=== PATIENT | female | born 1960 | race Caucasian/White ===

== ENCOUNTER → 2019-01-11 | Outpatient (CLI) | payer OTHER, SELFPAY ==
--- NOTE | 2019-01-11 09:38 | EKG12_ITS ---
Test Reason : PRE OP Blood Pressure : / mmHG Vent. Rate : 077 BPM Atrial Rate : 077 BPM P-R Int : 146 ms QRS Dur : 068 ms QT Int : 404 ms P-R-T Axes : 050 008 038 degrees QTc Int : 457 ms Normal sinus rhythm Low voltage QRS Borderline ECG Confirmed by MEAGHAN ALVAREZ, DONNA ([id number]), supervising film or videotape editor SHAY BLISS ([id number]) on 01/12/2019 10:43:20 AM Referred By: Jose Clifton Confirmed By:DONNA HARDING MD
[2019-01-11 10:09] LABS: Hemoglobin 14.3 g/dl (12.0-15.0); Mean Corp Hgb Conc 33.3 g/gl (32-36); Mean Corpuscular Hgb 28.7 pg (27.0-32.0); Mean Corpuscular Volume 86.2 fL (81-99); Mean Platelet Vol. 11.4 fl (6.2-12.0); Platelet Count 173 K/mm3 (150-450); RBC Distribution Width CV 13.6 % (11.6-14.6); RBC Distribution Width SD 41.7 fl (35.1-43.9); Red Blood Count 4.99 M/mm3 (4.2-5.4); Scan Indicated on CBC? Y/N NO
[2019-01-11 10:36] LABS: Anion Gap 7 (5-15); BUN 21 mg/dL (7-18); BUN/Creat Ratio 22.6 RATIO (10-20); Calcium,Total 9.1 mg/dL (8.5-10.1); Chloride 105 mmol/L (98-107); Creatinine, Serum 0.93 mg/dL (0.55-1.02); EST Glomerular Filtration Rate 66 mL/min (>60); Est Glom Filt Rate - Afr Amer 79 mL/min (>60); Glucose 151 mg/dL (74-106); Potassium 4.1 mmol/L (3.5-5.1); Sodium Level 139 mmol/L (136-145)
== END | disposition home or self-care (01) ==
PROVIDERS: Family Provider Family Medicine; PCP Family Medicine; Referring Provider Physician Assistant; Visit Provider Physician Assistant
DX: Z01.818 Encounter for other preprocedural examination (principal)
CPT/HCPCS: 36415; 80048; 85027; 93005

== ENCOUNTER → 2019-02-14 | Outpatient (CLI) | payer OTHER, SELFPAY ==
[2019-02-09 06:08] VITALS: BMI 32.0
--- NOTE | 2019-02-14 18:56 | CT_ITS ---
HISTORY: 1PPD X 40YR, LUNG SCREENING EXAMINATION: CT Low Dose CT Chest for Lung Cancer Screening TECHNIQUE: Helically acquired images were obtained of the chest. A radiation dose optimization technique was used for this scan. IV Contrast dosage and agent: None. COMPARISON: None FINDINGS: UPPER ABDOMEN: No acute pathology. HEART AND PERICARDIUM: Heart size is normal. There is no pericardial effusion. VESSELS: Thoracic aorta is not dilated. MEDIASTINUM AND [place]: There is no mediastinal or hilar adenopathy. Esophagus is unremarkable. There is no hiatal hernia. OTHER SOFT TISSUES: Included thyroid gland is unremarkable. There is no axillary, supraclavicular or lower cervical adenopathy. LUNGS AND LARGE AIRWAYS, PLEURA: No evidence of pneumothorax, pleural effusion, pneumonia, or pulmonary edema. No concerning nodules or masses in the lungs. Calcified granuloma right lung apex. Small subpleural bleb adjacent to the right upper lobe anteriorly. Otherwise very little emphysematous changes are noted. BONES: No suspicious lytic or blastic abnormality observed. CT/Low Dose CT Lung Screening IMPRESSION: Negative CT chest without contrast. Lung RADS 1. Continue annual screening. Individualized dose optimization techniques were used for this CT. at 2327 Reported and signed by: Maximilian Hannah MD Electronically Signed: Maximilian Hannah, at 23:26 EDT Tel , Service support ,
== END | disposition home or self-care (01) ==
LOC: CT 18:52
PROVIDERS: Visit Provider Internal Medicine Critical Care Medicine
DX: F17.210 Nicotine dependence, cigarettes, uncomplicated (principal); Z12.2 Encounter for screening for malignant neoplasm of respiratory organs
CPT/HCPCS: G0297

== ENCOUNTER → 2019-03-09 | Outpatient (CLI) | payer OTHER, SELFPAY ==
[2019-02-09 06:08] VITALS: BMI 32.0
--- NOTE | 2019-03-09 13:11 | PFTCOMP_ITS ---
COMPLETE PULMONARY FUNCTION TEST INTERPRETATION Brief HPI: Patient is a 58 year old Black female, currently under the care of Dr. Herrmann, who presents to [facility] for complete pulmonary function tests secondary to diagnosis of nicotine dependence. Respiratory therapist reports good effort and reproducible results. Interpretation: Forced expiration spirometry shows no large airways obstructive ventilatory defect with an FEV1 of 116% predicted. There is no significant bronchodilator response by strict ATS criteria. Spirograms are of good quality and plateau normally. The respiratory flow volume loop shows a normal pattern. Lung volumes by body plethysmography show slightly reduced total lung capacity at 3.69 L, 82% predicted. All other lung volumes are reduced symmetrically. Diffusion capacity by carbon monoxide is normal at 77% predicted. The airway resistance is normal. No previous pulmonary function tests were available for review. Impression: These pulmonary function tests are grossly within normal limits. Total lung volumes are at the lower limit of normal and an early interstitial lung disease cannot be excluded.
== END | disposition home or self-care (01) ==
LOC: PSN 06:40
PROVIDERS: Referring Provider Internal Medicine Critical Care Medicine; Visit Provider Internal Medicine Critical Care Medicine
DX: F17.210 Nicotine dependence, cigarettes, uncomplicated (principal)
CPT/HCPCS: 94060; 94726; 94729

== ENCOUNTER → 2021-01-26 06:56 | Outpatient (CLI) | payer OTHER, SELFPAY ==
[2021-01-25 09:51] VITALS: BMI 32.4
[2021-01-26 07:51] LABS: Absolute Lymphocyte Count 2.71 X10^3/uL (0.83-4.51); Absolute Neutrophil Count 4.2 X10^3/uL (2.0-7.7); Basophil# 0.06 X10^3/uL; Basophil% 0.8 % (0-1); Hematocrit 44.2 % (37-47); Hemoglobin 14.6 g/dL (12.0-15.0); Lymphocyte # 2.71 X10^3/ul (0.83-4.51); Mean Corpuscular Volume 87.7 fL (81-99); Mean Platelet Vol. 10.9 fl (6.2-12.0); Monocyte# 0.59 X10^3/uL; Monocyte% 7.4 % (0-10); NRBC Flagged by Analyzer 0 % (0-5); Neutrophil # 4.18 X10^3/uL (2.7-7.7); Neutrophil % 52.5 % (47-70); Platelet Count 198 K/mm3 (150-450); RBC Distribution Width CV 13.1 % (11.6-14.6); RBC Distribution Width SD 42.1 fl (35.1-43.9); Red Blood Count 5.04 M/mm3 (4.2-5.4)
[2021-01-26 08:51] LABS: Anion Gap 6 (5-15); BUN 19 mg/dL (7-18); BUN/Creat Ratio 20.2 RATIO (10-20); Calcium,Total 8.9 mg/dL (8.5-10.1); Chloride 109 mmol/L (98-107); Creatinine, Serum 0.94 mg/dL (0.55-1.02); EST Glomerular Filtration Rate 64 mL/min (>60); Est Glom Filt Rate - Afr Amer 78 mL/min (>60); Ferritin 80 ng/mL (8-252); Free T3 2.8 pg/mL (2.18-3.98); Glucose 115 mg/dL (74-106); Iron 69 ug/dL (50-170); Iron Binding Capacity,Total 336 ug/dL (250-450); PERCENT IRON SATURATION 20.5 % (15.0-55.0); Potassium 4.3 mmol/L (3.5-5.1); Sodium Level 141 mmol/L (136-145); Thyroid Stim Hormone (TSH) 1.65 uIU/mL (0.358-3.74)
== END ==
PROVIDERS: Referring Provider Nurse Practitioner Acute Care; Visit Provider Nurse Practitioner Acute Care
DX: R53.83 Other fatigue (principal)
CPT/HCPCS: 36415; 80048; 82728; 83540; 83550; 84439; 84443; 84481; 85025

== ENCOUNTER → 2021-02-08 07:17 | Outpatient (CLI) | payer OTHER, SELFPAY ==
[2021-01-25 09:51] VITALS: BMI 32.4
--- NOTE | 2021-02-08 07:18 | CT_ITS ---
STUDY: CT CHEST WITHOUT CONTRAST- LOW DOSE SCREENING PROTOCOL REASON FOR EXAM: Female, 60 years old. Current smoker. 40 pack per year history. No current symptoms of lung cancer or pulmonary infection. Shared decision-making with referring PCP documented in patient''s record. RADIATION DOSAGE (If Supplied By Facility): CTDIvol = ( 3.02 ) mGy, DLP = ( 96.28 ) mGycm TECHNIQUE: Low dose screening CT examination performed from the base of the neck to the upper abdomen. Sagittal and coronal reformatted images performed. Sagittal and coronal MIP images provided. The measurements provided are average, rounded measurements per ACR guidelines. COMPARISON: 02/14/2019 FINDINGS: Subpleural bleb or pneumatocele in the anterior right upper lobe. No noncalcified nodule or mass. There is no demonstrated pleural abnormality. Normal heart and pericardium. Normal mediastinum. Normal hilar regions. Normal unenhanced pulmonary arteries. Normal aorta arch and descending thoracic aorta. Normal osseous structures. There is no demonstrated abnormality of the visualized upper abdomen. CT/Low Dose CT Lung Screening IMPRESSION: 1. No significant indeterminate incidental findings requiring additional imaging. 2. Incidental findings include right upper lobe subpleural bleb or pneumatocele.. ASSESSMENT CATEGORY: LungRADS 1 - Negative. Continue annual screening with LDCT in 12 months, per established ACR guidelines. Electronically Signed: Sean Ruiz MD at 12:17 EDT Tel , Service support ,
== END ==
PROVIDERS: Referring Provider Nurse Practitioner Acute Care; Visit Provider Nurse Practitioner Acute Care
DX: F17.210 Nicotine dependence, cigarettes, uncomplicated (principal); Z12.2 Encounter for screening for malignant neoplasm of respiratory organs
CPT/HCPCS: 71271

== ENCOUNTER → 2021-04-10 11:59 | Outpatient (CLI) | payer OTHER, SELFPAY ==
[2021-04-10 15:17] LABS: Hemoglobin A1c 6.4 % (3.8-5.6)
[2021-04-10 15:29] LABS: Cholesterol 189 mg/dL (200); High Density Lipoprotein 34 mg/dL; Triglycerides 668 mg/dL
== END ==
PROVIDERS: PCP Internal Medicine; Referring Provider Internal Medicine; Visit Provider Internal Medicine
DX: I10 Essential (primary) hypertension (principal); R73.9 Hyperglycemia, unspecified
CPT/HCPCS: 36415; 80061; 83036

== ENCOUNTER → 2021-05-22 08:23 | Outpatient (CLI) | payer OTHER, SELFPAY ==
--- NOTE | 2021-05-22 08:25 | EKG12_ITS ---
Test Reason : ROUTINE Blood Pressure : / mmHG Vent. Rate : 067 BPM Atrial Rate : 067 BPM P-R Int : 156 ms QRS Dur : 076 ms QT Int : 406 ms P-R-T Axes : 041 029 063 degrees QTc Int : 429 ms Normal sinus rhythm Low voltage QRS Septal infarct , age undetermined Abnormal ECG Confirmed by MEAGHAN ALVAREZ, DONNA ([id number]), scientific publications editor SHAY BLISS ([id number]) on 05/23/2021 10:11:45 AM Referred By: Rolan Domingo Confirmed By:DONNA HARDING MD
== END ==
PROVIDERS: PCP Internal Medicine; Referring Provider Internal Medicine; Visit Provider Internal Medicine
DX: I10 Essential (primary) hypertension (principal)
CPT/HCPCS: 93005

== ENCOUNTER → 2021-06-17 06:35 | Outpatient (CLI) | payer OTHER, SELFPAY ==
--- NOTE | 2021-06-17 09:23 | STRESSREP_ITS ---
Stress Test Report Date: 06-17-2021 Procedure: Pharmacologic stress nuclear imaging study Indications: Abnormal ECG Consent: Per the patient Procedure: The patient underwent pharmacologic (Regadenoson 0.4mg ) evaluation with a peak heart rate of 99 beats per minute (62%predicted maximal heart rate) and a peak blood pressure of 138/76 mmHg. The baseline ECG demonstrated sinus rhythm; nonspecific T wave abnormality. The peak pharmacologic ECG demonstrated no obvious ECG changes. There was a rare premature ectopic complex in recovery. There was no complaint of chest discomfort during pharmacologic infusion or recovery. The examination was discontinued secondary to completion of protocol. Impression: 1. Pharmacologic (Regadenoson) evaluation 2. Peak pharmacologic ECG with no obvious ECG changes. 3. There was a rare premature ectopic complex in recovery. 4. Nuclear images pending Myocardial perfusion imaging study: Technique: The patient was injected with 11.2 millicuries of technetium 99m Cardiolite and subsequently rest SPECT Cardiolite nuclear imaging was obtained in the horizontal long, vertical long, and short axis views. The patient underwent pharmacologic (Regadenoson) evaluation with a peak heart rate of 99 beats per minute (62% percent predicted maximal heart rate) and a peak blood pressure of 138/76 mmHg. The patient was injected with 34.5 millicuries of technetium 99m Cardiolite and subsequently stress SPECT Cardiolite nuclear imaging was obtained in the horizontal long, vertical long, and short axis views. A gated Cardiolite study at peak stress was obtained. Interpretation: Rest and stress SPECT Cardiolite nuclear imaging status post realignment, normalization, and attenuation correction demonstrate relative uniform tracer uptake and myocardial perfusion appearing within normal limits. There is end systolic thickening and brightening. The gated Cardiolite study demonstrates myocardial thickening and inward wall motion. The reported LVEF is 76%. Impression: 1. Rest and stress SPECT Cardiolite nuclear imaging demonstrate relative uniform tracer uptake and myocardial perfusion appearing within normal limits. 2. The gated Cardiolite study reports an LVEF of 76%. This note was generated with [employer] software. It may contain incorrect words, spelling, and punctuation that were not noted in checking the note before signing.
== END ==
PROVIDERS: PCP Internal Medicine; Referring Provider Internal Medicine; Visit Provider Internal Medicine
DX: R94.31 Abnormal electrocardiogram [ECG] [EKG] (principal); I10 Essential (primary) hypertension
CPT/HCPCS: 78452; 93017; A9500; A4216; J2785

== ENCOUNTER → 2021-07-06 07:39 | Outpatient (CLI) | payer OTHER, SELFPAY ==
[2021-07-06 08:39] LABS: Anion Gap 5 (5-15); BUN 14 mg/dL (7-18); BUN/Creat Ratio 15.4 RATIO (10-20); Chloride 108 mmol/L (98-107); Creatinine, Serum 0.91 mg/dL (0.55-1.02); EST Glomerular Filtration Rate 67 mL/min (>60); Est Glom Filt Rate - Afr Amer 81 mL/min (>60); Glucose 145 mg/dL (74-106); Sodium Level 139 mmol/L (136-145)
[2021-07-06 08:55] LABS: Hemoglobin A1c 6.8 % (3.8-5.6)
== END ==
PROVIDERS: PCP Internal Medicine; Visit Provider Internal Medicine
DX: I10 Essential (primary) hypertension (principal); R73.03 Prediabetes
CPT/HCPCS: 36415; 80048; 83036

== ENCOUNTER 2021-11-20 14:11 | Outpatient (CLI) | payer OTHER, SELFPAY ==
[2021-11-20 14:55] LABS: Absolute Lymphocyte Count 2.44 X10^3/uL (0.83-4.51); Absolute Neutrophil Count 4.9 X10^3/uL (2.0-7.7); Basophil# 0.04 X10^3/uL; Basophil% 0.5 % (0-1); Eosinophil# 0.27 X10^3/uL; Eosinophils% 3.2 % (0-5); Hematocrit 37.8 % (37-47); Hemoglobin 12.6 g/dL (12.0-15.0); Lymphocyte # 2.44 X10^3/ul (0.83-4.51); Lymphocyte % 29.2 % (19-41); Mean Corp Hgb Conc 33.3 g/dL (32-36); Mean Corpuscular Hgb 29.2 pg (27.0-32.0); Mean Corpuscular Volume 87.5 fL (81-99); Monocyte# 0.65 X10^3/uL; Monocyte% 7.8 % (0-10); NRBC Flagged by Analyzer 0 % (0-5); Neutrophil # 4.94 X10^3/uL (2.7-7.7); Neutrophil % 58.9 % (47-70); Platelet Count 177 K/mm3 (150-450); RBC Distribution Width CV 12.7 % (11.6-14.6); RBC Distribution Width SD 40.5 fl (35.1-43.9); Red Blood Count 4.32 M/mm3 (4.2-5.4); White Blood Count 8.4 K/mm3 (4.4-11.0)
[2021-11-20 15:04] LABS: D-Dimer Quantitative (DVT/PE) 0.46 FEU/ug/m (0.27-0.49)
[2021-11-20 15:13] LABS: Anion Gap 5 (5-15); BUN 18 mg/dL (7-18); BUN/Creat Ratio 19.7 RATIO (10-20); Calcium,Total 8.8 mg/dL (8.5-10.1); Chloride 109 mmol/L (98-107); Creatinine, Serum 0.91 mg/dL (0.55-1.02); EST Glomerular Filtration Rate 66 mL/min (>60); Est Glom Filt Rate - Afr Amer 80 mL/min (>60); Glucose 164 mg/dL (74-106); Potassium 3.6 mmol/L (3.5-5.1); Sodium Level 141 mmol/L (136-145); T4 Free Direct 0.87 ng/dL (0.76-1.46)
== END 2021-11-20 23:59 | disposition home or self-care (01) ==
LOC: BIMLAB 14:12
PROVIDERS: PCP Internal Medicine; Referring Provider Physician Assistant; Visit Provider Physician Assistant
DX: I10 Essential (primary) hypertension (principal); R73.03 Prediabetes; R60.9 Edema, unspecified; F17.210 Nicotine dependence, cigarettes, uncomplicated; Z13.29 Encounter for screening for other suspected endocrine disorder
CPT/HCPCS: 80048; 84439; 85025; 85379

== ENCOUNTER → 2022-01-03 | Outpatient (CLI) | payer OTHER, SELFPAY ==
--- NOTE | 2022-01-03 07:42 | ECHOD_ITS ---
Reason For Study: HTN Procedure This was a 2D Doppler, Color Flow transthoracic echocardiogram. The study was technically difficult. Exam performed in department. Left Ventricle Apical false tendon noted. Based upon the 2D echocardiographic images obtained there appears to be grossly normal left ventricular size, wall motion, and systolic function. The estimated ejection fraction is 70 %. Diastolic function is indeterminate. Right Ventricle Normal RV size. Normal systolic function. Atria Normal left atrium. Normal right atrium. No doppler evidence for ASD. Mitral Valve There is no mitral annular calcification. Normal mitral valve. Trivial mitral valve insufficiency. Tricuspid Valve Normal tricuspid valve. Trivial tricuspid valve insufficiency. Unable to estimate RV systolic pressure/pulmonary artery pressure due to technically difficult study. Aortic Valve The aortic valve is not well visualized. Pulmonic Valve The pulmonic valve is not well visualized. Great Vessels The aortic root is not well visualized. Pericardium/Pleural No pericardial effusion. MMode/2D Measurements & Calculations LVIDd: 4.1 cm IVSd: 1.2 cm Ao root diam: 2.8 cm LVIDs: 1.9 cm LVPWd: 1.4 cm FS: 52.7 % LAV(MOD-bp): 30.9 ml LVAd ap4: 27.9 cm2 SV(MOD-sp4): 57.7 ml LAV(MOD-bp) Indexed: 17.1 ml/m2 LVLd ap4: 7.4 cm LAV(MOD-sp2): 24.3 ml EDV(MOD-sp4): 85.4 ml LAV(MOD-sp4): 35.3 ml EDV(sp4-el): 89.0 ml LVAs ap4: 13.1 cm2 LVLs ap4: 5.7 cm ESV(MOD-sp4): 27.7 ml ESV(sp4-el): 25.5 ml EF(MOD-sp4): 67.6 % EF(sp4-el): 71.3 % SV(sp4-el): 63.5 ml LA A4 area: 14.1 cm2 LA dimension(2D): 3.8 cm RA A4 area: 10.9 cm2 Doppler Measurements & Calculations MV E max adonay: 90.6 cm/sec Lat Peak E' Adonay: 6.3 cm/sec Med Peak E' Adonay: 7.5 cm/sec MV A max adonay: 108.4 cm/sec E/E' lat: 14.5 E/E' med: 12.1 MV E/A: 0.84 Ao V2 max: 172.4 cm/sec LV V1 max: 135.9 cm/sec PA V2 max: 98.4 cm/sec Ao max P.9 mmHg LV V1 max P.4 mmHg ECHO/Echo Complete Interpretation Summary The study was technically difficult. Based upon the 2D echocardiographic images obtained there appears to be grossly normal left ventricular size, wall motion, and systolic function The estimated ejection fraction is 70 %. Apical false tendon noted. Trivial mitral valve insufficiency. Trivial tricuspid valve insufficiency. Unable to estimate RV systolic pressure/pulmonary artery pressure due to techni rodrigo difficult study. Diastolic function is indeterminate. Ordering Physician: Holger Recio Referring Physician: Holger Recio Performed By: Luz Rubio RCS
--- NOTE | 2022-01-03 07:42 | VDLE_ITS ---
Reason For Study: Swelling RIGHT LEFT GSV is normal. GSV is normal. CFV is compressible, spontaneous, phasic, CFV is compressible, spontaneous, phasic, competent and demonstrates normal competent, and demonstrates normal augmentation. augmentation. FV is compressible, spontaneous, phasic, FV is compressible, spontaneous, phasic, competent and demonstrates normal competent and demonstrates normal augmentation. augmentation. POP V is compressible, spontaneous, phasic, POP V is compressible, spontaneous, phasic, competent and demonstrates normal competent and demonstrates normal augmentation. augmentation. T/P Trunk is compressible. T/P Trunk is compressible. PTV is compressible. PTV is compressible. RT PerV is compressible. LT PerV is compressible. Heterogenous structure noted in the right calf muscle, nonvascularized, measuring 2.04 x 2.31 cm. Procedure This is a venous duplex using B-mode, color flow and spectral Doppler. Exam performed in department. A preliminary report was called and/or faxed to [facility]. VL/Venous Duplex US - Abraham Extrem Interpretation Summary No evidence for acute deep venous thrombosis bilateral lower extremities with p atent and compressible bilateral great saphenous veins. Heterogenous nonvascular right ca lf muscle 2.04 x 2.31 cm structure. Clinical correlation would be appropriate. Ordering Physician: Holger Recio Referring Physician: Rolan Domingo Performed By: Ashely Anderson RVT
[2022-01-03 08:05] LABS: Anion Gap 8 (5-15); BUN 23 mg/dL (7-18); BUN/Creat Ratio 21.9 RATIO (10-20); Calcium,Total 8.8 mg/dL (8.5-10.1); Chloride 105 mmol/L (98-107); Creatinine, Serum 1.05 mg/dL (0.55-1.02); EST Glomerular Filtration Rate 56 mL/min (>60); Est Glom Filt Rate - Afr Amer 68 mL/min (>60); Glucose 216 mg/dL (74-106); Potassium 3.8 mmol/L (3.5-5.1); Sodium Level 140 mmol/L (136-145)
== END | disposition home or self-care (01) ==
LOC: CVS 07:13
PROVIDERS: PCP Internal Medicine; Referring Provider Internal Medicine Cardiovascular Disease; Visit Provider Internal Medicine Cardiovascular Disease
DX: I10 Essential (primary) hypertension (principal); R94.31 Abnormal electrocardiogram [ECG] [EKG]; R60.0 Localized edema
CPT/HCPCS: 36415; 80048; 93306; 93970

== ENCOUNTER → 2022-01-25 | Outpatient (CLI) | payer OTHER, SELFPAY ==
[2022-01-25 08:36] LABS: Anion Gap 5 (5-15); BUN 17 mg/dL (7-18); BUN/Creat Ratio 15.9 RATIO (10-20); Calcium,Total 8.7 mg/dL (8.5-10.1); Chloride 106 mmol/L (98-107); Creatinine, Serum 1.07 mg/dL (0.55-1.02); EST Glomerular Filtration Rate 55 mL/min (>60); Est Glom Filt Rate - Afr Amer 67 mL/min (>60); Glucose 256 mg/dL (74-106); Potassium 3.8 mmol/L (3.5-5.1); Sodium Level 138 mmol/L (136-145)
== END | disposition home or self-care (01) ==
LOC: LAB 07:41
PROVIDERS: PCP Internal Medicine; Referring Provider Internal Medicine Cardiovascular Disease; Visit Provider Internal Medicine Cardiovascular Disease
DX: I10 Essential (primary) hypertension (principal); R94.31 Abnormal electrocardiogram [ECG] [EKG]
CPT/HCPCS: 36415; 80048

== ENCOUNTER → 2022-02-10 | Outpatient (CLI) | payer OTHER, SELFPAY ==
--- NOTE | 2022-02-10 15:32 | CT_ITS ---
EXAM: CT CHEST WITHOUT INTRAVENOUS CONTRAST CLINICAL INDICATION: smoker and gt; 40 pack years TECHNIQUE: Helically acquired images were obtained of the chest without intravenous contrast. This CT exam was performed using one or more of the following dose reduction techniques: automated exposure control, adjustment of the mA and/or kV according to patient size, and/or use of iterative reconstruction technique. This report was created using [employer] report generation technology. COMPARISON: None. FINDINGS: LUNGS AND PLEURAL SPACES: Stable small right upper lobe subpleural bleb versus pneumatocele. No pulmonary nodule or mass. No pneumothorax. No airspace disease or pleural thickening. No effusion. HEART: Unremarkable. Heart size is normal. No pericardial effusion. No significant coronary artery calcifications. MEDIASTINUM: Unremarkable. No mediastinal or hilar adenopathy. Esophagus is unremarkable. No hiatal hernia. THYROID: Unremarkable. No thyroid lesions. BONES/JOINTS: Degenerative changes of the spine. No suspicious lytic or blastic abnormality. VASCULATURE: Unremarkable. Thoracic aorta is non-dilated. CT/Low Dose CT Lung Screening IMPRESSION: 1. No pulmonary nodules identified. 2. Stable small right upper lobe subpleural bleb versus pneumatocele. Assessment category: ACR Lung CT Screening Reporting T Data System (Lung-RADS) score: 1 - Recommend continued annual screening with low-dose CT (LDCT) in 12 months. Electronically Signed: Spike Dominguez MD at 7:39 EDT ,
== END | disposition home or self-care (01) ==
PROVIDERS: PCP Internal Medicine; Visit Provider Nurse Practitioner Acute Care
DX: F17.210 Nicotine dependence, cigarettes, uncomplicated (principal)
CPT/HCPCS: 71271

== ENCOUNTER → 2022-07-26 | Outpatient (CLI) | payer OTHER, SELFPAY ==
[2022-07-26 10:04] LABS: AST(SGOT) 18 U/L (15-37); Alanine Aminotransfer ALT/SGPT 33 U/L (13-56); Albumin, Serum 3.9 g/dL (3.2-5.0); Alkaline Phosphatase 94 U/L (45-117); Bilirubin, Direct 0.11 mg/dL (0.00-0.30); Cholesterol 232 mg/dL (200); Globulin 3.4 g/dL (2.2-4.2); High Density Lipoprotein 35 mg/dL; Protein, Total 7.3 g/dL (6.4-8.2); Triglycerides 748 mg/dL
== END | disposition home or self-care (01) ==
LOC: LAB 08:33
PROVIDERS: PCP Internal Medicine; Referring Provider Nurse Practitioner Gerontology; Visit Provider Nurse Practitioner Gerontology
DX: R73.03 Prediabetes (principal)
CPT/HCPCS: 36415; 80061; 80076

== ENCOUNTER → 2023-03-28 | Outpatient (CLI) | payer OTHER, SELFPAY ==
[2023-03-28 09:26] LABS: AST(SGOT) 14 U/L (15-37); Alanine Aminotransfer ALT/SGPT 27 U/L (13-56); Albumin, Serum 3.7 g/dL (3.2-5.0); Alkaline Phosphatase 94 U/L (45-117); Bilirubin, Direct 0.12 mg/dL (0.00-0.30); Cholesterol 163 mg/dL (200); Globulin 3.5 g/dL (2.2-4.2); High Density Lipoprotein 38 mg/dL; Protein, Total 7.2 g/dL (6.4-8.2); Triglycerides 448 mg/dL
== END | disposition home or self-care (01) ==
LOC: LAB 07:05
PROVIDERS: PCP Internal Medicine; Referring Provider Nurse Practitioner Gerontology; Visit Provider Nurse Practitioner Gerontology
DX: E78.1 Pure hyperglyceridemia (principal); E78.5 Hyperlipidemia, unspecified
CPT/HCPCS: 36415; 80061; 80076

== ENCOUNTER → 2023-04-01 | Outpatient (CLI) | payer OTHER, SELFPAY ==
--- NOTE | 2023-04-01 06:50 | CT_ITS ---
STUDY: LOW DOSE CT LUNG CANCER SCREENING REASON FOR EXAM: Female, 62 years old. smoker. 1PPD 45 YEARS RADIATION DOSAGE (If Supplied By Facility): CTDIvol = ( 3.02 ) mGy, DLP = ( 97.04 ) mGycm TECHNIQUE: No contrast was administered. Low dose technique was utilized (average mAS-38 and kVp 120). 1.25 mm axial source images with a slice interval of 1.25-mm were reconstructed in lung windows. 2.5 mm axial source images with a slice interval of 2.5-mm were reconstructed in lung windows. 5.0 mm axial source images with a slice interval of 5.0-mm were reconstructed in soft tissue windows. COMPARISON: Comparison is made with prior study February 10, 2022. NODULES: Stable tiny calcified granuloma in the anterior lateral aspect of the right lung apex as seen on axial image #44. Emphysema: Stable bleb measuring 2.2 cm is seen in the anterior aspect of the right upper lobe as seen on axial image #59 and coronal image #100. Stable minimal scarring in the posterior medial segment of the right lower lobe. Endobronchial lesion: None Aorta: Minimal atherosclerotic plaque of the aortic arch. CORONARY ARTERIES: Coronary artery calcification is seen. Heart: Unremarkable. Pulmonary artery: Unremarkable. Mediastinal nodes: Small mediastinal lymph nodes. Other chest and abdominal findings: CT/Low Dose CT Lung Screening IMPRESSION: Lung-RADS category 2 - Continue annual screening with LDCT in 12 months. IMPORTANT NOTES FOR USE: ACR Lung-RADS Version 1.1 Assessment Categories Release Date: 2018 Category: Coded 0-4 bases on nodule(s) with highest degree of suspicion. Negative screen is defined as categories 1 and 2; a positive screen is defined as categories 3 and 4. Category 3 and 4A nodules that are unchanged on interval CT should be coded as category 2, and individuals returned to screening in 12 months. Category 4X: Category 3 or 4 nodules with additional imaging findings that increase the suspicion of lung cancer, such as spiculation, GGN that doubles in size in 1 year, enlarged lymph notes, etc. Category Modifiers: S (significant finding unrelated to lung cancer) Electronically Signed: Luis Serrano MD at 10:59 EDT ,
== END | disposition home or self-care (01) ==
LOC: CT 06:48
PROVIDERS: PCP Internal Medicine; Referring Provider Nurse Practitioner Acute Care; Visit Provider Nurse Practitioner Acute Care
DX: F17.210 Nicotine dependence, cigarettes, uncomplicated (principal)
CPT/HCPCS: 71271

== ENCOUNTER → 2023-07-25 | Outpatient (CLI) | payer OTHER, SELFPAY ==
[2023-07-25 08:49] LABS: AST(SGOT) 16 U/L (15-37); Alanine Aminotransfer ALT/SGPT 30 U/L (13-56); Albumin, Serum 3.9 g/dL (3.2-5.0); Alkaline Phosphatase 108 U/L (45-117); Bilirubin, Direct 0.11 mg/dL (0.00-0.30); Cholesterol 195 mg/dL (200); Globulin 3.4 g/dL (2.2-4.2); High Density Lipoprotein 39 mg/dL; Protein, Total 7.3 g/dL (6.4-8.2); Triglycerides 512 mg/dL
== END | disposition home or self-care (01) ==
LOC: LAB 07:32
PROVIDERS: PCP Internal Medicine; Referring Provider Nurse Practitioner Gerontology; Visit Provider Nurse Practitioner Gerontology
DX: E78.5 Hyperlipidemia, unspecified (principal); E78.1 Pure hyperglyceridemia
CPT/HCPCS: 36415; 80061; 80076

== ENCOUNTER → 2024-04-02 | Outpatient (CLI) | payer OTHER, SELFPAY ==
--- NOTE | 2024-04-02 08:43 | CT_ITS ---
STUDY: LOW DOSE CT LUNG CANCER SCREENING REASON FOR EXAM: Female, 63 years old. One pack per day smoker x46 years RADIATION DOSAGE (If Supplied By Facility): CTDIvol = ( 3.02 ) mGy, DLP = ( 100.81 ) mGycm TECHNIQUE: No contrast was administered. Low dose technique was utilized (average mAS-38 and kVp 120). 1.25 mm axial source images with a slice interval of 1.25-mm were reconstructed in lung windows. 2.5 mm axial source images with a slice interval of 2.5-mm were reconstructed in lung windows. 5.0 mm axial source images with a slice interval of 5.0-mm were reconstructed in soft tissue windows. COMPARISON: 04/01/2023 FINDINGS: Lung windows show a stable calcified granuloma in the right upper lobe on axial image 42. There is underlying emphysema with stable bleb also noted in the right upper lobe. Interstitial changes noted in both lung mejía without evidence of a superimposed infiltrate, effusion, or suspicious noncalcified mass or nodule. Overall, the lung mejía are essentially unchanged from the previous study. Limited soft tissue windows show a normal-appearing thyroid gland. No suspicious adenopathy. There are calcified coronary vessels. Thoracic aorta tapers normally. Limited cuts through the upper abdomen do not show a suspicious abnormality. Bony structures show degenerative change CT/Low Dose CT Lung Screening IMPRESSION: Lung-RADS category 2 - Continue annual screening with LDCT in 12 months. IMPORTANT NOTES FOR USE: ACR Lung-RADS Version 1.1 Assessment Categories Release Date: 2018 Category: Coded 0-4 bases on nodule(s) with highest degree of suspicion. Negative screen is defined as categories 1 and 2; a positive screen is defined as categories 3 and 4. Category 3 and 4A nodules that are unchanged on interval CT should be coded as category 2, and individuals returned to screening in 12 months. Category 4X: Category 3 or 4 nodules with additional imaging findings that increase the suspicion of lung cancer, such as spiculation, GGN that doubles in size in 1 year, enlarged lymph notes, etc. Category Modifiers: S (significant finding unrelated to lung cancer) Electronically Signed: Michael Murillo MD at 8:52 EDT ,
== END | disposition home or self-care (01) ==
LOC: CT 08:42
PROVIDERS: PCP Internal Medicine; Referring Provider Nurse Practitioner Acute Care; Visit Provider Nurse Practitioner Acute Care
DX: F17.210 Nicotine dependence, cigarettes, uncomplicated (principal)
CPT/HCPCS: 71271

== ENCOUNTER → 2024-07-27 | Outpatient (CLI) | payer OTHER, SELFPAY ==
[2024-07-27 11:47] LABS: Hematocrit 45.6 % (37-47); Hemoglobin 15.6 g/dL (12.0-15.0); Mean Corp Hgb Conc 34.2 g/dL (32-36); Mean Corpuscular Hgb 29.3 pg (27.0-32.0); Mean Corpuscular Volume 85.7 fL (81-99); Mean Platelet Vol. 11.4 fl (6.2-12.0); Platelet Count 189 K/mm3 (150-450); RBC Distribution Width CV 12.3 % (11.6-14.6); RBC Distribution Width SD 38.5 fl (35.1-43.9); Red Blood Count 5.32 M/mm3 (4.2-5.4)
[2024-07-27 12:13] LABS: ALB/GLOB Ratio 1.2 RATIO (0.9-2.4); AST(SGOT) 17 U/L (15-37); Alanine Aminotransfer ALT/SGPT 30 U/L (13-56); Alkaline Phosphatase 117 U/L (45-117); Anion Gap 6 (5-15); BUN 18 mg/dL (7-18); BUN/Creat Ratio 17.5 RATIO (10-20); Calcium,Total 9.4 mg/dL (8.5-10.1); Chloride 98 mmol/L (98-107); Cholesterol 211 mg/dL (200); Creatinine, Serum 1.03 mg/dL (0.55-1.02); EST Glomerular Filtration Rate 57 mL/min (>60); Est Glom Filt Rate - Afr Amer 69 mL/min (>60); Globulin 3.3 g/dL (2.2-4.2); Glucose 368 mg/dL (74-106); High Density Lipoprotein 42 mg/dL; Potassium 4.1 mmol/L (3.5-5.1); Protein, Total 7.3 g/dL (6.4-8.2); Sodium Level 133 mmol/L (136-145); Triglycerides 616 mg/dL
[2024-07-27 12:30] LABS: Hemoglobin A1c 10.4 % (3.8-5.6)
== END | disposition home or self-care (01) ==
LOC: LAB 11:17
PROVIDERS: PCP Internal Medicine; Referring Provider Internal Medicine Cardiovascular Disease; Visit Provider Internal Medicine Cardiovascular Disease
DX: I10 Essential (primary) hypertension (principal); E78.2 Mixed hyperlipidemia
CPT/HCPCS: 36415; 80053; 80061; 83036; 85027

== ENCOUNTER → 2024-09-03 | Outpatient (CLI) | payer OTHER, SELFPAY ==
[2024-09-03 08:12] LABS: Anion Gap 6 (5-15); BUN 20 mg/dL (7-18); BUN/Creat Ratio 18.2 RATIO (10-20); Calcium,Total 9.4 mg/dL (8.5-10.1); Chloride 103 mmol/L (98-107); EST Glomerular Filtration Rate 53 mL/min (>60); Est Glom Filt Rate - Afr Amer 64 mL/min (>60); Glucose 292 mg/dL (74-106); Potassium 3.5 mmol/L (3.5-5.1); Sodium Level 139 mmol/L (136-145)
[2024-09-03 08:19] LABS: Hemoglobin A1c 9.9 % (3.8-5.6)
== END | disposition home or self-care (01) ==
LOC: LAB 06:58
PROVIDERS: PCP Internal Medicine; Referring Provider Physician Assistant Medical; Visit Provider Physician Assistant Medical
DX: E11.9 Type 2 diabetes mellitus without complications (principal)
CPT/HCPCS: 36415; 80048; 83036

== ENCOUNTER → 2025-03-22 | Outpatient (CLI) | payer MEDICARE, OTHER, SELFPAY ==
--- NOTE | 2025-03-22 07:02 | BI_ITS ---
EXAM: SCRN MAMM (CAD)W/JIMENA BILAT DATE: 03/22/2025 CLINICAL HISTORY: F, Age 64 y/o , SCREENING TECHNIQUE: SCRN MAMM (CAD)W/JIMENA BILAT COMPARISON: No priors available FINDINGS: TISSUE DENSITY: The breasts are almost entirely fatty. Bilateral Breast Mammographic Findings: No significant masses, calcifications or other abnormalities are identified. BI/SCRN MAMM (CAD)W/JIMENA BILAT IMPRESSION: There is no mammographic evidence of malignancy. OVERALL FINAL ASSESSMENT BI-RADS 1: NEGATIVE. RECOMMENDATION: Routine annual follow-up in 1 Year A letter with findings and recommendations will be mailed to the patient. Reading Location: [id number]
--- NOTE | 2025-03-22 07:02 | BI_ITS ---
EXAM: SCRN MAMM (CAD)W/JIMENA BILAT DATE: 03/22/2025 CLINICAL HISTORY: F, Age 64 y/o , SCREENING TECHNIQUE: SCRN MAMM (CAD)W/JIMENA BILAT COMPARISON: No priors available FINDINGS: TISSUE DENSITY: The breasts are almost entirely fatty. Bilateral Breast Mammographic Findings: No significant masses, calcifications or other abnormalities are identified. BI/SCRN MAMM (CAD)W/JIMENA BILAT IMPRESSION: There is no mammographic evidence of malignancy. OVERALL FINAL ASSESSMENT BI-RADS 1: NEGATIVE. RECOMMENDATION: Routine annual follow-up in 1 Year A letter with findings and recommendations will be mailed to the patient. Reading Location: [id number]
--- NOTE | 2025-03-22 07:05 | BD_ITS ---
PROCEDURE: DEXA BONE DENSITY STUDY 03/22/2025 REASON FOR EXAM: F, age 64 y/o . Postmenopausal. TECHNIQUE: DEXA BONE DENSITY STUDY COMPARISON: None FINDINGS: BMD and T-SCORES Lumbar spine: 1.324 g/cm2, T-score 2.5 Levels: L1 through L4 Left femoral neck: 0.753 g/cm2, T-score -0.9 Femoral neck comparison data not recommended for monitoring change. Left total hip: 1.007 g/cm2, T-score 0.5 Right femoral neck: 0.694 g/cm2, T-score -1.4 Femoral neck comparison data not recommended for monitoring change. Right total hip: 0.957 g/cm2, T-score 0.1 The World Health Organization has defined the following categories based on bone density: Normal bone density: T-score equal to or greater than -1.0 Osteopenia: T-score between -1.0 and -2.5 Osteoporosis: T-score equal to or less than -2.5 The patient does meet the pharmacological treatment recommendations for prevention of osteoporosis. BD/Dexa Bone Density Study IMPRESSION: OSTEOPENIA. Recommend follow-up as clinically warranted. Reading Location: [facility]
--- NOTE | 2025-03-22 07:05 | BD_ITS ---
PROCEDURE: DEXA BONE DENSITY STUDY 03/22/2025 REASON FOR EXAM: F, age 64 y/o . Postmenopausal. TECHNIQUE: DEXA BONE DENSITY STUDY COMPARISON: None FINDINGS: BMD and T-SCORES Lumbar spine: 1.324 g/cm2, T-score 2.5 Levels: L1 through L4 Left femoral neck: 0.753 g/cm2, T-score -0.9 Femoral neck comparison data not recommended for monitoring change. Left total hip: 1.007 g/cm2, T-score 0.5 Right femoral neck: 0.694 g/cm2, T-score -1.4 Femoral neck comparison data not recommended for monitoring change. Right total hip: 0.957 g/cm2, T-score 0.1 The World Health Organization has defined the following categories based on bone density: Normal bone density: T-score equal to or greater than -1.0 Osteopenia: T-score between -1.0 and -2.5 Osteoporosis: T-score equal to or less than -2.5 The patient does meet the pharmacological treatment recommendations for prevention of osteoporosis. BD/Dexa Bone Density Study IMPRESSION: OSTEOPENIA. Recommend follow-up as clinically warranted. Reading Location: [facility]
--- OUTSIDE RECORDS SUMMARY | 2025-03-22 07:18 | XMS RPT_ITS | CCD ---
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 Rolan Domingo Primary Care Provider [phone] Dr. Rolan Domingo Referring Provider [phone] GINGER Horn Attending Provider Unavailab Dr. Holger Pritchard Attending Provider [phone] Dr. Stephon Chinchilla Attending Provider Dr. Holger Recio Referring Provider [phone] Billy HEARD, JORGE LUIS Salcido Attending Provider Dr. Rolan Domingo Primary Care Provider [phone] Dr. Rolan Domingo Referring Provider [phone] Billy HEARD, JORGE LUIS Salcido Attending Provider Unavailable Primary Care Provider UnavailDr. Rolan Dc Primary Care Provider [phone] Dr. oRlan Domingo Referring Provider [phone] Billy HEARD, JORGE LUIS Salcido Attending Provider Sharita HEARD, NODULIZER-Laine Chery Attending Provider ROLAN DOMINGO Primary Care Unavailable GENEVA MELENDEZ Referring Unavailable ROLAN DOMINGO Primary Care Unavailable Rolan Domingo MD Primary Care Provider [phone] Dr. Rolan Domingo Primary Care Provider [phone] Dr. Rolan Domingo Referring Provider [phone] Kori NODULIZER, NODULIZERIvett Ruffin Attending Provider [phone] Keena Francisco Attending Unavail able Keena Francisco Referring Unavail able Oleghe, Efewongbe Primary Care Unavailable Oleghe, Efewongbe Primary Care Unavailable Raedenis HICKS, Marybeth Attending Unavailable Rae AIDENC, Marybeth Referring Unavailable Sharita NODULIZER, Miri Referring Unavailable Oleghe, Efewongbe Primary Care Unavailable Sharita NODULIZER, Miri Attending Unavailable Oleghe, Efewongbe Primary Care Unavailable Rae VSC, Marybeth Attending Unavailable Rae FABIOLA, Marybeth Referring Unavailable Oleghe, Efewongbe Primary Care Unavailable Oleghe, Efewongbe Referring Unavailable Sylvester Domingo Attending Unavailable Oleghe, Efewongbe Primary Care Unavailable Oleghe, Efewongbe Referring Unavailable Sharita NODULIZER, Miri Attending Unavailable Sylvester Domingo Attending Unavailable Sylvester Domingo Referring Unavailable Oleghe, Efewongbe Primary Care Unavailable Oleghe, Efewongbe Primary Care Unavailable Sharita NODULIZER, Miri Attending Unavailable Sharita HEARD, Miri Referring Unavailable Oleghe, Efewongbe Referring Unavailable Oleghe, Efewongbe Primary Care Unavailable Layla Esposito Attending Unavailable Allergies Allergy Classification Reported Allergen(s) Allergy Type Date of Onset Reaction(s) Facility (11 sources) Codeine; Translations: [CODEINE] Drug Allergy [address] [facility] Work Phone: (4 sources) rosuvastatin Drug Allergy 2 Heart burn [facility] (3 sources) Naproxen; Translations: [NAPROXEN] Drug Allergy [address] [facility] Work Phone: (3 sources) Perfumes; Translations: [PERFUMES] Propensity to adverse reactions 7 [facility] Work Phone: (1 source) amLODIPine Drug Allergy 3 Edema [facility] (1 source) amLODIPine Drug Allergy 5 [facility] Repository (1 source) Codeine Drug Allergy 5 [facility] (1 source) rosuvastatin Drug Allergy 5 [facility] Rep[facility] Medications Current Medications Medication Drug Class(es) Dates Sig (Normalized) Sig (Original) ascorbic acid 500 mg oral tablet (2 sources) Vitamin C Start: 12-22-2006 take 1 tablet by mouth once daily ascorbic acid (VITAMIN C) 500 mg ORAL Tab Take one(1) tablet daily. 0 12/22/2006 Active Comment on above: Take one(1) tablet d aily. calcium ascorbate 500 mg oral tablet (8 sources) Start: 02-08-2019 take 500 mg by mouth once daily Ascorbate Calcium (Vitamin C) Active 500 MG PO DAILY February 07, 2019 11:00pm cholecalciferol 0.125 mg oral tablet (15 sources) Vitamin D Start: 12-12-2021 take 125 ug by mouth once daily Cholecalciferol (Vitamin D3) Active 125 MCG PO DAILY December 11, 2021 11:00pm Start: 02-08-2019 End: 12-12-2021 take 1 tablet by mouth once daily cholecalciferol (vitamin D3) 3,000 unit tablet Discontinued 3000 UNIT PO DAILY February 07, 2019 11:00pm December 12, 2021 12:12pm cyclobenzaprine hydrochloride 10 mg oral tablet (2 sources) Muscle Relaxant Start: 05-05-2016 take 1 tablet by mouth three times daily as needed for muscle spasms cyclobenzaprine (FLEXERIL) 10 mg tablet Indications: Muscle spasms of neck Take 1 tablet by mouth three times daily as needed for Muscle Spasm. 21 tablet 0 05/05/2016 Active Comment on above: Take 1 tablet by rony th three times daily as needed for Muscle Spasm. doxycycline hyclate 100 mg oral tablet (1 source) Tetracycline-c lass Drug Start: 01-17-2023 End: 01-24-2023 take 1 tablet by mouth twice daily doxycycline (VIBRA-TABS) 100 mg tablet Take 1 tablet by mouth twice daily for 7 days. 14 tablet 0 01/17/2023 01/24/2023 Active Comment on above: Take 1 tablet by rony th twice daily for 7 days. ergocalciferol, vitamin D2, (VITAMIN D2 ORAL) (2 sources) ergocalciferol, vitamin D2, (VITAMIN D2 ORAL) Take by mouth. Active ergocalciferol, vitamin D2, (VITAMIN D2 ORAL) Take by mouth. 0 Active Comment on above: Take by mouth. ezetimibe 10 mg oral tablet (5 sources) Dietary Cholesterol Absorption Inhibitor Start: End: take 10 mg by mouth once daily Ezetimibe Active 10 MG PO DAILY July 13, 2023 9:58am fexofenadine hydrochloride 180 mg oral tablet (10 sources) Histamine-1 Receptor Antagonist Start: take 1 tablet by mouth every twenty-four hours Fexofenadine (Day Allergy) 180 mg tablet Active 180 MG PO Q24H February 07, 2019 11:00pm Start: 03-19-2010 fexofenadine h cl(DAY 180 MG TAB) Indications: Allergic rhinitis, cause unspecified Take one(1) tablet daily. 15 0803/19/2010 Active Comment on above: Take one(1) tablet d aily. icosapent ethyl 1000 mg oral capsule (3 sources) Start: 01-27-2023 Icosapent Ethyl (Vascepa) 1 gram capsule Active 2 GM PO TWICE A DAY 120 January 26, 2023 11:00pm melatonin 3 mg oral tablet (16 sources) Start: 02-08-2019 End: 04-10-2021 take 3 mg by mouth at bedtime Melatonin Active 3 MG PO BEDTIME April 10, 2021 10:30am 24 hr metoprolol succinate 50 mg extended release oral tablet (20 sources) beta-Adrenergic Santana Start: 07-21-2022 End: 04-21-2023 take 50 mg by mouth once daily Metoprolol Succinate Active 50 MG PO DAILY 90 April 21, 2023 9:33am Start: 01-27-2022 End: 07-21-2022 take 50 mg by mouth twice daily Metoprolol Succinate Discontinued 50 MG PO TWICE A DAY March 25, 2022 9:57am July 21, 2022 3:40pm Start: 12-12-2021 End: 01-27-2022 take 50 mg by mouth once daily Metoprolol Succinate Di scontinued 50 MG PO DAILY December 12, 2021 1:05pm January 27, 2022 2:55pm Start: 11-20-2021 End: 12-12-2021 take 100 mg by mouth once daily Metoprolol Succinate Discontinued 100 MG PO DAILY November 20, 2021 12:33pm December 12, 2021 1:08pm Start: 07-03-2021 End: 11-20-2021 take 50 mg by mouth once daily Metoprolol Succinate Di scontinued 50 MG PO DAILY 60 July 03, 2021 12:00am November 20, 2021 12:37pm Multivitamin (DAILY MULTIPLE) ORAL Tab (2 sources) Start: 12-22-2006 take 1 tablet by mouth once daily Multivitamin (DAILY MULTIPLE) ORAL Tab Take one(1) tablet daily. 0 12/22/2006 Active Comment on above: Take one(1) tablet d aily. naproxen sodium 220 mg oral tablet (2 sources) Nonsteroidal Anti-inflammatory Drug Start: 07-28-2007 naproxen sodium(ALEVE 220 MG TAB) takes 2 tablets twice daily as needed for back pain 0 07/28/2007 Active Comment on above: takes 2 tablets twic e daily as needed for back pain OTC PRODUCT (2 sources) Start: 05-16-2013 OTC PRODUCT Flash fighter - takes for menopause. Takes 3 tablets at evening meal 0 05/16/2013 Active Comment on above: Flash fighter - take s for menopause. Takes 3 tablets at evening meal predniSONE 20 mg oral tablet (1 source) Start: 01-17-2023 End: 01-22-2023 take 2 tablets by mouth once daily predniSONE (DELTASONE) 20 mg tablet Take 2 tablets by mouth once daily for 5 days. 10 tablet 0 01/17/2023 01/22/2023 Active Comment on above: Take 2 tablets by mo uth once daily for 5 days. Vitamin B Complex (B Complex-Vitamin B12) tablet (8 sources) Start: 02-08-2019 take 1 tablet by mouth once daily Vitamin B Complex (B Complex-Vitamin B12) tablet Active 1 TABLET PO DAILY February 08, 2019 2:24pm Start: 02-08-2019 take 1 tablet by rony th once daily Vitamin B Complex (B Complex-Vitamin B12) tablet Active 1 TABLET PO DAILY February 07, 2019 11:00pm Start: 02-08-2019 take 1 tablet by rony th once daily Vitamin B Complex (B Complex-Vitamin B12) tablet Active 1 TABLET PO DAILY February 08, 2019 12:00am vitamin b12 0.25 mg oral tablet (2 sources) Vitamin B12 Cyanocobalamin ( VITAMIN B-12) 250 mcg tab Take by mouth. Active Comment on above: Take by mouth. Completed/Discontinued Medications Medication Drug Class(es) Dates Sig (Normalized) Sig (Original) [id number] 200 actuat albuterol 0.09 mg/actuat metered dose inhaler (8 sources) beta2-Adrenergic Agonist Start: 01-17-2023 End: 09-11-2023 take 2 puff(s) by inhalation every six hours as needed albuterol HFA (PROAIR HFA) 90 mcg/actuation inhaler Inhale 2 Puffs as instructed every 6 hours as needed. 1 Each 01/17/2023 09/11/2023 Discontinued (Course of therapy completed) Start: 06-21-2016 End: 09-11-2023 take 2 puff(s) by inhalation every four hours as needed albuterol HFA (PROAIR HFA) 90 mcg/actuation inhaler Indications: Cough Inhale 2 Puffs as instructed every 4 hours as needed. 1 Inhaler 1 08/16/2018 09/11/2023 Discontinued (Course of therapy completed) Start: 07-19-2013 End: 09-11-2023 take 2 puff(s) by inhalation every four hours as needed albuterol 90 mcg/actuation aero Indications: Bronchitis Inhale 2 Puffs as instructed every 4 hours as needed (shortness of breath). 1 Inhaler 0 07/19/2013 09/11/2023 Discontinued (Course of therapy completed) Comment on above: Inhale 2 Puffs as in structed every 6 hours as needed. Inhale 2 Puffs as in structed every 4 hours as needed (shortness of breath). Inhale 2 Puffs as in structed every 4 hours as needed for Wheezing/Shortness of Breath. Inhale 2 Puffs as in structed every 4 hours as needed. amLODIPine 5 mg oral tablet (20 sources) Dihydropyridine Calcium Channel Santana Start: 2 End: take 5 mg by mouth once daily Amlodipine Discontinued 5 MG PO DAILY November 20, 2021 12:31pm December 12, 2021 1:05pm Start: 06-05-2021 End: 11-20-2021 take 10 mg by mouth once daily Amlodipine Discontinued 10 MG PO DAILY June 05, 2021 10:34am November 20, 2021 12:37pm Start: 04-10-2021 End: 06-05-2021 take 5 mg by mouth once daily Amlodipine Discontinued 5 MG PO DAILY 30 April 09, 2021 11:00pm June 05, 2021 10:35am benzonatate 100 mg oral capsule (6 sources) Non-narcotic Antitussive Start: 01-17-2023 End: 09-11-2023 take 2 capsules by mouth every eight hours as needed benzonatate (TESSALON PERLES) 100 mg capsule Take 2 capsules by mouth three times daily as needed. 30 capsule 01/17/2023 09/11/2023 Discontinued (Course of therapy completed) Start: 06-21-2016 End: 09-11-2023 take 100-200 mg by mouth every eight hours as needed for cough and cough benzonatate (TESSALON PERLE) 100 mg capsule Indications: Cough Take 1-2 capsules by mouth three times daily as needed. 30 capsule 0 06/21/2016 09/11/2023 Discontinued (Course of therapy completed) Start: 07-19-2013 End: 09-11-2023 take 1 capsule by mouth three times daily as needed for cough Benzonatate (TESSALON) 200 mg capsule Indications: Bronchitis Take 200 mg by mouth three times daily as needed for Cough. 40 capsule 0 07/19/2013 09/11/2023 Discontinued (Course of therapy completed) Comment on above: Take 2 capsules by m outh three times daily as needed. Take 200 mg by mouth three times daily as needed for Cough. Take 1-2 capsules by mouth three times daily as needed. fenofibrate 54 mg oral tablet (8 sources) Peroxisome Proliferator Receptor alpha Agonist Start: 2020 End: 2020 take 54 mg by mouth once daily Fenofibrate Discontinued 54 MG PO DAILY 60 April 17, 2021 11:00pm April 18, 2021 6:16pm gemfibrozil 600 mg oral tablet (8 sources) Peroxisome Proliferator Receptor alpha Agonist Start: 2020 End: 2020 take 600 mg by mouth twice daily Gemfibrozil Discontinued 600 MG PO TWICE A DAY 60 April 09, 2021 11:00pm April 18, 2021 6:16pm hydroCHLOROthiazide 25 mg oral tablet (18 sources) Thiazide Diuretic Start: 2021 End: 2022 take 25 mg by mouth once daily Hydrochlorothiazide Discontinued 25 MG PO DAILY 90 April 09, 2022 7:17am January 27, 2023 2:40pm rosuvastatin calcium 10 mg oral tablet (16 sources) HMG-CoA Reductase Inhibitor Start: 2020 End: 2021 take 10 mg by mouth once daily Rosuvastatin Discontinued 10 MG PO DAILY August 13, 2021 12:22pm July 21, 2022 3:37pm varenicline 1 mg oral tablet (20 sources) Partial Cholinergic Nicotinic Agonist Start: 2018 End: 2020 take 1 tablet by mouth twice daily Varenicline (Chantix Continuing Month Box) 1 mg tablet Discontinued 1 MG PO TWICE A DAY July 27, 2019 12:00am February 21, 2021 8:48am Start: 03-30-2019 End: 02-21-2021 take 1 tablet by mouth once Varenicline (Chantix Start ing Month Box) 0.5 mg (11)- 1 mg (42) tablets,dose pack Discontinued 0 PO per package directions 53 March 30, 2019 2:00pm February 21, 2021 8:47am PO PER PKG DIR varenicline tart rate (CHANTIX ORAL) Take by mouth. Active varenicline tart rate (CHANTIX ORAL) Take by mouth. 0 Active Comment on above: Take by mouth. Problems Active Problems Problem Classification Problem Date Documented Date Episodic/Chronic Chronic obstructive pulmonary disease and bronchiectasis (1 source) Bronchitis; Translations: [Bronchitis, not specified as acute or chronic] Episodic Diabetes mellitus without complication (1 source) Type 2 diabetes mellitus without complications; Translations: [Type 2 diabetes mellitus without complications] Onset: 12-21-2024 Chronic Disorders of lipid metabolism (12 sources) Hypertriglyceridemia; Translations: [Pure hyperglyceridemia] Onset: 07-27-2024 07-29-2022 Chronic Essential hypertension (19 sources) Hypertensive disorder; Translations: [Essential (primary) hypertension] Onset: 08-30-2024 Chronic Osteoporosis (1 source) Age-related osteoporosis without current pathological fracture; Translations: [Age-related osteoporosis without current pathological fracture] Onset: 03-15-2025 Chronic Other connective tissue disease (1 source) Pain in right finger(s); Translations: [Pain in right finger(s)] Onset: 03-10-2025 Episodic Other hereditary and degenerative nervous system conditions (8 sources) Restless legs; Translations: [Restless legs syndrome] 02-08-2019 Chronic Other lower respiratory disease (1 source) Cough; Translations: [Acute cough] 09-11-2023 Episodic Other nervous system disorders (2 sources) Carpal tunnel syndrome; Translations: [Carpal tunnel syndrome, unspecified upper limb] Onset: 12-22-2006 12-22-2006 Chronic Other nutritional; endocrine; and metabolic disorders (5 sources) Morbid obesity; Translations: [Morbid (severe) obesity due to excess calories] Chronic Other nutritional; endocrine; and metabolic disorders (3 sources) Obesity caused by energy imbalance; Translations: [Morbid (severe) obesity due to excess calories] 02-08-2019 Chronic Other nutritional; endocrine; and metabolic disorders (2 sources) Morbid (severe) obesity due to excess calories; Translations: [Morbid obesity] 03-03-2023 Chronic Other screening for suspected conditions (not mental disorders or infectious disease) (12 sources) Electrocardiogram abnormal; Translations: [Abnormal electrocardiogram [ECG] [EKG]] Onset: 03-15-2025 Episodic Other upper respiratory disease (10 sources) Allergic rhinitis; Translations: [Allergic rhinitis, unspecified] Onset: 12-22-2006 12-22-2006 Chronic Residual codes; unclassified (8 sources) Obstructive sleep apnea syndrome; Translations: [Obstructive sleep apnea (adult) (pediatric)] 02-08-2019 Chronic Residual codes; unclassified (2 sources) Obstructive sleep apnea (adult) (pediatric); Translations: [Obstructive sleep apnea (adult)(pediatric)] 03-03-2023 Chronic Residual codes; unclassified (6 sources) Localized edema; Translations: [Edema] Episodic Residual codes; unclassified (1 source) Edema, unspecified; Translations: [Edema] Episodic Substance-related disorders (20 sources) Nicotine dependence; Translations: [Nicotine dependence, cigarettes, uncomplicated] Onset: 12-22-2006 12-22-2006 Chronic Unclassified (1 source) Acute cough; Translations: [Acute cough] Onset: 09-11-2023 Past or Other Problems Problem Classification Problem Date Documented Date Episodic/Chronic Administrative/social admission (8 sources) Counseling procedure with explicit context; Translations: [Tobacco abuse counseling] 04-10-2021 Episodic Diabetes mellitus without complication (17 sources) Hyperglycemia; Translations: [Hyperglycemia, unspecified] 04-10-2021 Episodic Malaise and fatigue (8 sources) Fatigue; Translations: [Other fatigue] 01-25-2021 Episodic Other connective tissue disease (8 sources) H/O: musculoskeletal disease; Translations: [Personal history of other diseases of the musculoskeletal system and connective tissue] 02-09-2019 Episodic Other connective tissue disease (2 sources) Ganglion of joint; Translations: [Ganglion, unspecified site] Onset: 05-16-2013 05-16-2013 Episodic Other connective tissue disease (2 sources) Digital mucous cyst; Translations: [Ganglion, unspecified hand] Onset: 05-31-2013 05-31-2013 Episodic Other skin disorders (2 sources) Ingrowing nail; Translations: [Ingrowing nail] Onset: 07-21-2007 07-21-2007 Episodic Residual codes; unclassified (7 sources) Edema of lower extremity; Translations: [Localized edema] 12-12-2021 Episodic Skin and subcutaneous tissue infections (2 sources) Disorder of nail; Translations: [Cellulitis of unspecified toe] Onset: 12-14-2006 12-14-2006 Episodic Results Test Name Value Interpretation Reference Range Facility Endocrinology Visit Reporton 12-21-2024 Endocrinology Visit Report [facility] [address] [place] [address] OFFICE VISIT Date of Service: 12/21/24 MR#: [id number] Acct: [id number] Name: ANIRENZO PRADO Rep #: [id number] : 1960 Provider: JORGE LUIS augustin Age/Sex: 64/F [facility] Status: Signed Intake Vital Signs 07/27/24 10:25 12/21/24 08:03 Height 5 ft 2 in 5 ft 2 in Weight: 169 lb 160 lb BMI 30.9 29.2 BP 164/85 H 137/76 H Blood Pressure Location Lt brachial Lt brachial Position Sitting Sitting Respiration 18 Pulse 78 74 Pulse Source Monitor Monitor Pulse Oximetry (%) 95 93 Oxygen Delivery Method room air room air Intake Visit Reasons: Diabetes Chief Complaint: establish care- diabetes Bridge Opener Required: No Accompanied by: Self Is patient in pain?: Yes (BL Hips ) Pain scale (1-10): 4 Allergies codeine Allergy (Severe, Verified 12/21/24 08:09) Memory Loss amlodipine Adverse Reaction (Mild, Verified 12/21/24 08:09) Edema rosuvastatin Adverse Reaction (Verified 12/21/24 08:09) Heart burn Medications ???Medication ???Instructions ???Recorded ???Confirmed ???Type ascorbate calcium (vitamin C) 500 500 mg PO DAILY 02/08/19 12/21/24 History mg tablet fexofenadine 180 mg tablet 180 mg PO Q24H 02/08/19 12/21/24 H istory (Day Allergy) melatonin 3 mg tablet 3 mg PO HS PRN 04/10/21 12/21/24 H istory metoprolol succinate 50 mg 50 mg PO DAILY #90 tabs 01/18/24 0 12/21/24 Rx tablet,extended release 24 hr hydrochlorothiazide 25 mg tablet 25 mg PO DAILY #90 tabs 03/21/24 0 12/21/24 Rx ezetimibe 10 mg tablet 10 mg PO DAILY #30 tabs 08/11/24 0 12/21/24 Rx empagliflozin 10 mg tablet 10 mg PO QAM #90 tabs 10/26/2403/10 Rx (Jardiance) icosapent ethyl 1 gram capsule 2 g (2 x 1 gram) PO BID #360 caps 10/26/24 12/21/24 Rx (Vascepa) albuterol sulfate 90 mcg/actuation 2 puff inhalation Q8H PRN 12/21/24 History aerosol inhaler blood sugar diagnostic (Accu-Chek #100 ea 12/21/24 12/21/24 Rx Guide test strips) blood-glucose meter (Accu-Chek #1 ea 12/21/24 12/21/24 Rx Guide Glucose Meter) cholecalciferol (vitamin D3) 25 25 mcg PO QDAY 12/21/24 12/21/24 H istory mcg (1,000 unit) capsule fenofibrate 160 mg tablet 160 mg PO QDAY #90 tabs 12/21/24 0 12/21/24 Rx lancets 30 gauge ([place] Chek #100 ea 12/21/24 12/21/24 Rx Lancets) mecobalamin (vitamin B12) 2,500 2,500 mcg PO DAILY 12/21/24 History mcg chewable tablet Have you fallen in the past year?: No PFSH Medical History Leg edema Essential hypertension Borderline type 2 diabetes mellitus Abnormal EKG Tobacco abuse counseling Hyperglycemia History of trigger finger Morbid (severe) obesity due to excess calories Allergic rhinitis Restless leg syndrome MIRANDA (obstructive sleep apnea) Surgical History H/O: hysterectomy Hx of appendectomy History of carpal tunnel release Family History Mother Hypertension Heart disease Cardiac pacemaker in situ Uncle Diabetes Social History Smoking Status: Current every day smoker tobacco type: cigarettes Tobacco: How many years used: 45 Electronic Cigarette Use: not used second hand exposure: Yes alcohol intake: current alcohol intake frequency: holidays/special occasions only substance use type: does not use caffeine: Yes Type: coffee Number of servings: 2 and tea Number of servings: 1 HPI HPI Chief Complaint: establish care- diabetes Details: RENZO LAW, is a 64 F who presents to the office today for evaluation and management of diabetes. Referred by cardiology for uncontrolled diabetes. She was diagnosed approximately 4 years ago when A1C was noted to be elevated. She did not pursue treatment at that time as she felt her A1C was not concerning and did not like the approach that she was told. She does have remote family history of diabetes. She has CKD III, she was not aware of this. She was placed Jardiance 10 mg once daily in June, tolerating well. She states she knows very little about diabetes and has never been instructed to check her blood sugars. A1C today is 8.5%, improved from 09/03/24 at 9.9%. Her diet contains a fair amount of processed carbohydrates and starchy vegetables. BP controlled. Currently taking HCTZ 25 mg once daily and metoprolol succ 50 mg once daily. Hx of elevated cholesterol, currently taking ezetimibe 10 mg once daily and Vascepa 2 gm BID. She was on rosvuastatin at one time and reported heart burn with use. Labs are up to date. Denies any a (more content not included)... Normal [facility] Basic Metabolic Profile (BMP )on 09-03-2024 BUN/CRE 18.2 RATIO Normal 10-20 [facility] Comment on above: Performed By: #### L [id number], L500.2500 #### [facility] [address] [place], [address] CA,Total 9.4 mg/dL Normal 8.5-10.1 [facility] Comment on above: Performed By: #### L [id number], L500.2500 #### [facility] [address] [place], [address] Chloride [Moles/Vol] 103 mmol/L Normal 98-107 [facility] Comment on above: Performed By: #### L [id number], [id number] #### [facility] [address] [place], [address] CO2 [Moles/Vol] 30.0 mmol/L Normal 21.0-32.0 [facility] Comment on above: Performed By: #### L [id number], L500.2500 #### [facility] [address] [place], [address] Creatinine [Mass/Vol] 1.10 mg/dL High 0.55-1.02 [facility] Comment on above: Result Comment: The validity of the calculated GFR GFRAA in patients over 70 years has not been determined. Clinical correlation is essential. Performed By: #### L [id number], L500.2500 #### [facility] [address] [place], [address] EST GFR - AA 64 mL/min Normal >60 [facility] Comment on above: Result Comment: Afri can Greek GFR Calc Performed By: #### L [id number], [id number] #### [facility] [address] [place], [address] GAP 6 Normal 5-15 [facility] Comment on above: Performed By: #### L [id number], [id number] #### [facility] [address] [place], [place] [address] GFR/1.73 sq M.predicted among non-blacks MDRD (S/P/Bld) [Vol rate/Area] 53 mL/min/{1.73_m2} Low >60 [facility] Comment on above: Result Comment: Non- GFR Calc Performed By: #### L 501.9985, L500.2500 #### [facility] [address] [place], [address] Glucose [Mass/Vol] 292 mg/dL High 74-106 [facility] Comment on above: Result Comment: Gluc ose result greater than or equal to 200 mg/dL suggests DIABETES MELLITUS per A.D.A. criteria. Performed By: #### L 501.9985, L500.2500 #### [facility] [address] [place], [address] Potassium [Moles/Vol] 3.5 mmol/L Normal 3.5-5.1 [facility] Comment on above: Performed By: #### L 501.9985, L500.2500 #### [facility] [address] [place], [address] Sodium [Moles/Vol] 139 mmol/L Normal 136-145 [facility] Comment on above: Performed By: #### L 501.9985, L500.2500 #### [facility] [address] [place], [address] Urea nitrogen [Mass/Vol] 20 mg/dL High -18 [facility] Comment on above: Performed By: #### L 501.9985, L500.2500 #### [facility] [address] [place], [address] Hemoglobin A1con 09-03-2024 HbA1c (Bld) [Mass fraction] 9.9 % High 3.8-5.6 [facility] Comment on above: Result Comment: Norm al < 5.7 % Prediabetic 5.7 - 6.4 % Diabetic >or= 6.5 % Please note range changes. Performed By: #### L 501.9985, L500.2500 #### [facility] [address] [place], [address] CBC-Complete Blood Cnt No Di ffon 07-27-2024 Erythrocyte distribution width (RBC) [Ratio] 12.3 % Normal 11.6-14.6 [facility] Comment on above: Order Comment: PER Alberto DOMINGO ORDER Performed By: #### L 500.4050, L500.4100, L100.0500, L501.9985 #### [facility] [address] [place], [address] Hematocrit (Bld) [Volume fraction] 45.6 % Normal 37-47 [facility] Comment on above: Order Comment: PER Alberto DOMINGO ORDER Performed By: #### L 500.4050, L500.4100, L100.0500, L501.9985 #### [facility] [address] [place], [address] Hemoglobin (Bld) [Mass/Vol] 15.6 g/dL High 12.0-15.0 [facility] Comment on above: Order Comment: PER P SIM DOMINGO ORDER Performed By: #### L 500.4050, L500.4100, L100.0500, L501.9985 #### [facility] [address] [place], [address] MCH (RBC) [Entitic mass] 29.3 pg Normal 27.0-32.0 [facility] Comment on above: Order Comment: PER Alberto DOMINGO ORDER Performed By: #### L 500.4050, L500.4100, L100.0500, L501.9985 #### [facility] [address] [place], [address] MCHC (RBC) [Mass/Vol] 34.2 g/dL Normal 32-36 [facility] Comment on above: Order Comment: PER P T-ALEXANDER DOMINGO ORDER Performed By: #### L 500.4050, L500.4100, L100.0500, L501.9985 #### [facility] [address] [place], [address] MCV (RBC) [Entitic vol] 85.7 fL Normal 81-99 [facility] Comment on above: Order Comment: PER P SIM DOMINGO ORDER Performed By: #### L 500.4050, L500.4100, L100.0500, L501.9985 #### [facility] [address] [place], [address] Platelet mean volume (Bld) [Entitic vol] 11.4 fL Normal 6.2-12.0 [facility] Comment on above: Order Comment: PER P SIM DOMINGO ORDER Performed By: #### L 500.4050, L500.4100, L100.0500, L501.9985 #### [facility] [address] [place], [address] Platelets (Bld) [#/Vol] 189 10*3/uL Normal 150-450 [facility] Comment on above: Order Comment: PER P T-ALEXANDER DOMINGO ORDER Performed By: #### L 500.4050, L500.4100, L100.0500, L501.9985 #### [facility] [address] [place], [address] RBC (Bld) [#/Vol] 5.32 10*6/uL Normal 4.2-5.4 [facility] Comment on above: Order Comment: PER P T-ALEXANDER DOMINGO ORDER Performed By: #### L 500.4050, L500.4100, L100.0500, L501.9985 #### [facility] [address] [place], [address] RDW SD 38.5 fl Normal 35.1-43.9 [facility] Comment on above: Order Comment: PER P SIM DOMINGO ORDER Performed By: #### L 500.4050, L500.4100, L100.0500, L501.9985 #### [facility] [address] [place], [address] WBC (Bld) [#/Vol] 9.0 10*3/uL Normal 4.4-11.0 [facility] Comment on above: Order Comment: PER P SIM DOMINGO ORDER Performed By: #### L 500.4050, L500.4100, L100.0500, L501.9985 #### [facility] [address] [place], [address] Cardiology Visit Reporton Cardiology Visit Report [facility] [address] [place] [address] OFFICE VISIT Date of Service: 07/27/24 MR#: [id number] Acct: [id number] Name: RENZO LAW Rep #: [id number] : 1960 Provider: Dr. Sylvester rojo MD Age/Sex: 63/F [place] [facility] Status: Signed HPI HPI History of Present Illness Details: Patient comes in today is a pleasant 63-year-old white female for monitoring of her cardiovascular status. Patient reports that she has been doing fairly well in her home environment denies any chest pain she has not seen her primary care physician at this time. The patient carries a history of hypertension hyperlipidemia and borderline diabetes. The patient had an issue with lower extremity edema with amlodipine and is currently on hydrochlorothiazide and metoprolol. She is tolerating these meds without incident but her blood pressure was elevated in office today at 164/85. The patient reports to me that normally it runs around 140 systolic in the home environment. The patient also denies that she has ever been diagnosed with diabetes although she does have a history of a hemoglobin A1c of above 6 at some point in time in the past. The patient does have hypertriglyceridemia and was started on Vascepa in the past. She has not had lipids reevaluated since being on the medication for her triglycerides. Patient denies any anginal type symptoms denies any syncope or near syncope denies any lower extremity edema. Intake Vital Signs 04/08/24 08:25 07/27/24 10:25 Height 5 ft 2 in 5 ft 2 in Weight: 168 lb 169 lb BMI 30.7 30.9 BP 130/75 H 164/85 H Blood Pressure Location Rt brachial Lt brachial Position Sitting Sitting Respiration 20 H 18 Pulse 66 78 Pulse Source Monitor Monitor Temp 96.9 F L Temperature Source Temporal Artery Pulse Oximetry (%) 96 95 Oxygen Delivery Method room air room air Intake Visit Reasons: 1 Y FU Bridge Opener Required: No Accompanied by: Self Is patient in pain?: No Allergies codeine Allergy (Severe, Verified 07/27/24 10:26) Memory Loss amlodipine Adverse Reaction (Mild, Verified 07/27/24 10:26) Edema rosuvastatin Adverse Reaction (Verified 07/27/24 10:26) Heart burn Medications ???Medication ???Instructions ???Recorded ???Confirmed ???Type ascorbate calcium (vitamin C) 500 500 mg PO DAILY 02/08/19 07/27/24 History mg tablet fexofenadine 180 mg tablet 180 mg PO Q24H 02/08/19 07/27/24 History (Day Allergy) vitamin B complex (B 1 tab PO DAILY 02/08/19 07/27/24 History Complex-Vitamin B12 tablet) melatonin 3 mg tablet 3 mg PO HS PRN 04/10/21 07/27/24 History cholecalciferol (vitamin D3) 125 125 mcg PO DAILY 12/12/21 07/27/24 History mcg (5,000 unit) tablet metoprolol succinate 50 mg 50 mg PO DAILY #90 tabs 01/18/24 07/27/24 Rx tablet,extended release 24 hr hydrochlorothiazide 25 mg tablet 25 mg PO DAILY #90 tabs 03/21/24 07/27/24 Rx albuterol sulfate 90 mcg/actuation inhalation 04/08/24 07/27/24 History aerosol inhaler icosapent ethyl 1 gram capsule 2 g (2 x 1 gram) PO BID #360 caps 05/04/24 07/27/24 Rx (Vascepa) ezetimibe 10 mg tablet 10 mg PO DAILY #30 tabs 07/11/24 07/27/24 Rx Have you fallen in the past year?: No PFSH Medical History Leg edema Essential hypertension Borderline type 2 diabetes mellitus Abnormal EKG Tobacco abuse counseling Hyperglycemia History of trigger finger Morbid (severe) obesity due to excess calories Allergic rhinitis Restless leg syndrome MIRANDA (obstructive sleep apnea) Surgical History H/O: hysterectomy Hx of appendectomy History of carpal tunnel release Family History Mother Hypertension Heart disease Cardiac pacemaker in situ Social History Smoking Status: Current every day smoker tobacco type: cigarettes Tobacco: How many years used: 40 second hand exposure: Yes alcohol intake: current alcohol intake frequency: holidays/special occasions only substance use type: does not use caffeine: Yes Type: coffee Number of servings: 2 and tea Number of servings: 1 ROS Const Const: Negative for fatigue or weakness ENT ENT: Negative for dizziness or balance problems Cardio Chest Pain: No Palpitations: No Edema: None Muscle aches with walking: None Resp Respiratory: Negative for SOB with activity, SOB at rest or SOB orthopnea SOB lying down GI GI: Positive for heartburn (intermittently); Negative nausea or vomiting Musc Musc: Negative for muscle weakness or balance problems Neuro Neuro: Negative for dizziness, light (more content not included)... Normal [facility] Comprehensive Metabolic Prof marioon 07-27-2024 Albumin [Mass/Vol] 4.0 g/dL Normal 3.2-5.0 [facility] Comment on above: Order Comment: PER Alberto DOMINGO ORDER Performed By: #### L 500.4050, L500.4100, L100.0500, L501.9985 #### [facility] [address] [place], [address] Albumin/Globulin [Mass ratio] 1.2 {ratio} Normal 0.9-2.4 [facility] Comment on above: Order Comment: PER Alberto DOMINGO ORDER Performed By: #### L 500.4050, L500.4100, L100.0500, L501.9985 #### [facility] [address] [place], [address] ALK P 117 U/L Normal 45-117 [facility] Comment on above: Order Comment: PER Alberto DOMINGO ORDER Performed By: #### L 500.4050, L500.4100, L100.0500, L501.9985 #### [facility] [address] [place], [address] ALT [Catalytic activity/Vol] 30 U/L Normal 13-56 [facility] Comment on above: Order Comment: PER Alberto DOMINGO ORDER Performed By: #### L 500.4050, L500.4100, L100.0500, L501.9985 #### [facility] [address] [place], [address] AST [Catalytic activity/Vol] 17 U/L Normal 15-37 [facility] Comment on above: Order Comment: PER Alberto DOMINGO ORDER Performed By: #### L 500.4050, L500.4100, L100.0500, L501.9985 #### [facility] [address] [place], [address] Bilirubin [Mass/Vol] 0.50 mg/dL Normal 0.20-1.00 [facility] Comment on above: Order Comment: PER Alberto DOMINGO ORDER Result Comment: For patients on eltrombopag therapy, use of Dimension Bradford TBIL is not recommended. Performed By: #### L 500.4050, L500.4100, L100.0500, L501.9985 #### [facility] [address] [place], [address] BUN/CRE 17.5 RATIO Normal 10-20 [facility] Comment on above: Order Comment: PER Albetro DOMINGO ORDER Performed By: #### L 500.4050, L500.4100, L100.0500, L501.9985 #### [facility] [address] [place], [address] CA,Total 9.4 mg/dL Normal 8.5-10.1 [facility] Comment on above: Order Comment: PER Alberto DOMINGO ORDER Performed By: #### L 500.4050, L500.4100, L100.0500, L501.9985 #### [facility] [address] [place], [address] Chloride [Moles/Vol] 98 mmol/L Normal 98-107 [facility] Comment on above: Order Comment: PER Alberto DOMINGO ORDER Performed By: #### L 500.4050, L500.4100, L100.0500, L501.9985 #### [facility] [address] [place], [address] CO2 [Moles/Vol] 29.0 mmol/L Normal 21.0-32.0 [facility] Comment on above: Order Comment: PER Alberto DOMINGO ORDER Performed By: #### L 500.4050, L500.4100, L100.0500, L501.9985 #### [facility] [address] [place], [address] Creatinine [Mass/Vol] 1.03 mg/dL High 0.55-1.02 [facility] Comment on above: Order Comment: PER Alberto DOMINGO ORDER Result Comment: The validity of the calculated GFR GFRAA in patients over 70 years has not been determined. Clinical correlation is essential. Performed By: #### L 500.4050, L500.4100, L100.0500, L501.9985 #### [facility] [address] [place], [address] EST GFR - AA 69 mL/min Normal >60 [facility] Comment on above: Order Comment: PER Alberto DOMINGO ORDER Result Comment: Afri can Greek GFR Calc Performed By: #### L 500.4050, L500.4100, L100.0500, L501.9985 #### [facility] [address] [place], [address] GAP 6 Normal 5-15 [facility] Comment on above: Order Comment: PER Alberto DOMINGO ORDER Performed By: #### L 500.4050, L500.4100, L100.0500, L501.9985 #### [facility] [address] [place], [address] GFR/1.73 sq M.predicted among non-blacks MDRD (S/P/Bld) [Vol rate/Area] 57 mL/min/{1.73_m2} Low >60 [facility] Comment on above: Order Comment: PER Alberto DOMINGO ORDER Result Comment: Non- GFR Calc Performed By: #### L 500.4050, L500.4100, L100.0500, L501.9985 #### [facility] [address] [place], [address] Globulin (S) [Mass/Vol] 3.3 g/dL Normal 2.2-4.2 [facility] Comment on above: Order Comment: PER Alberto DOMINGO ORDER Performed By: #### L 500.4050, L500.4100, L100.0500, L501.9985 #### [facility] [address] [place], [address] Glucose [Mass/Vol] 368 mg/dL High 74-106 [facility] Comment on above: Order Comment: PER Alberto DOMINGO ORDER Result Comment: Gluc ose result greater than or equal to 200 mg/dL suggests DIABETES MELLITUS per A.D.A. criteria. Performed By: #### L 500.4050, L500.4100, L100.0500, L501.9985 #### [facility] [address] [place], [address] Potassium [Moles/Vol] 4.1 mmol/L Normal 3.5-5.1 [facility] Comment on above: Order Comment: PER Alberto DOMINGO ORDER Performed By: #### L 500.4050, L500.4100, L100.0500, L501.9985 #### [facility] [address] [place], [address] Sodium [Moles/Vol] 133 mmol/L Low 136-145 [facility] Comment on above: Order Comment: PER Alberto DOMINGO ORDER Performed By: #### L 500.4050, L500.4100, L100.0500, L501.9985 #### [facility] [address] [place], [address] T PROT 7.3 g/dL Normal 6.4-8.2 [facility] Comment on above: Order Comment: PER Albreto DOMINGO ORDER Performed By: #### L 500.4050, L500.4100, L100.0500, L501.9985 #### [facility] [address] [place], [address] Urea nitrogen [Mass/Vol] 18 mg/dL Normal 7-18 [facility] Comment on above: Order Comment: PER Alberto DOMINGO ORDER Performed By: #### L 500.4050, L500.4100, L100.0500, L501.9985 #### [facility] [address] [place], [address] Hemoglobin A1con 07-27-2024 HbA1c (Bld) [Mass fraction] 10.4 % High 3.8-5.6 [facility] Comment on above: Order Comment: PER Alberto DOMINGO ORDER Result Comment: Norm al < 5.7 % Prediabetic 5.7 - 6.4 % Diabetic >or= 6.5 % Please note range changes. Performed By: #### L 500.4050, L500.4100, L100.0500, L501.9985 #### [facility] [address] [place], [address] Lipid Profileon 07-27-2024 Cholesterol [Mass/Vol] 211 mg/dL High 200 [facility] Comment on above: Order Comment: PER Alberto DOMINGO ORDER Result Comment: <200 mg/dL Desirable 200-240 mg/dL Borderline >240 mg/dL High Risk Performed By: #### L 500.4050, L500.4100, L100.0500, L501.9985 #### [facility] [address] [place], [address] Cholesterol in HDL [Mass/Vol] 42 mg/dL Normal [facility] Comment on above: Order Comment: PER Alberto DOMINGO ORDER Result Comment: The drugs N-Acetylcysteine and Metamizole may falsely depress this assay. Reference Range HDL <40 mg/dL Low HDL Cholesterol HDL >or= 60 mg/dL High HDL Cholesterol Performed By: #### L 500.4050, L500.4100, L100.0500, L501.9985 #### [facility] [address] [place], [address] LDL TNP Normal 0-130 [facility] Comment on above: Order Comment: PER Alberto DOMINGO ORDER Performed By: #### L 500.4050, L500.4100, L100.0500, L501.9985 #### [facility] [address] [place], [address] Triglyceride [Mass/Vol] 616 mg/dL High [facility] Comment on above: Order Comment: PER Alberto DOMINGO ORDER Result Comment: The drugs N-Acetylcysteine and Metamizole may falsely depress this assay. TRIGLYCERIDE IS GREATER THAN 400 mg/dL. LDL RESULT IS INVALID AND WILL NOT BE REPORTED. Serum Triglycerides Reference Interval Normal <150 mg/dL Borderline high 150 - 199 mg/dL High 200 - 499 mg/dL Very High > or = 500 mg/dL Performed By: #### L 500.4050, L500.4100, L100.0500, L501.9985 #### [facility] [address] [place], [address] VLDL TNP Normal 5-40 [facility] Comment on above: Order Comment: PER P SIM DOMINGO ORDER Performed By: #### L 500.4050, L500.4100, L100.0500, L501.9985 #### [facility] [address] [place], [address] Pulmonary Visit Reporton Pulmonary Visit Report [facility] [place] [address] [place] [address] OFFICE VISIT Date of Service: 04/08/24 MR#: [id number] Acct: [id number] Name: RENZO LAW Rep #: [id number] : 1960 Provider: JORGE LUIS Sheriff Age/Sex: 63/F [place] [facility] Status: Signed Assessment and Plan Assessment and Plan (1) MIRANDA (obstructive sleep apnea): Status: Chronic Plan: Stable, she is using and benefiting from Pap therapy. No indication for titration study at this time. Continue to encourage weight loss. Contact the office for any new or worsening symptoms in the meantime. Follow-up in 1 year. (2) Morbid (severe) obesity due to excess calories: Status: Chronic Plan: Continue to encourage weight loss. (3) Smoking greater than 40 pack years: Status: Chronic Comment: Current smoker, LDCT ordered for March 2025 Plan: Continue to encourage complete smoking cessation. She remains appropriate for repeat LDCT due in 12 months, ordered for March 2025. Orders: Orders Low Dose CT Lung Screening 04/03/25 F17.200 - Nicotine dependence, unspecified, uncomplicated, F17.210 - Nicotine dependence, cigarettes, uncomplicated Plan Details Follow Up: 1 Year ([facility]) HPI 1 Y FU Chief Complaint: routine follow up HPI Comments Details: This patient presents to the office today for follow-up of her obstructive sleep apnea complicated by nicotine abuse. She is ambulatory and currently on room air. She has not been seen in the ED or urgent care for any respiratory illness since her last office visit. She has not required any antibiotics or prednisone for any breathing problems. She is not currently on any maintenance inhalers. She has not recently required the use of her albuterol. The only time that she may need her albuterol if she is exposed to perfume. She denies any difficulty with shortness of breath. She denies any cough, sputum production or hemoptysis. She denies any wheezing, chest tightness, chest pain or palpitations. She also denies any fever, chills or body aches. She continues to smoke cigarettes. She is currently smoking about 1 pack/day. She wakes up feeling rested and refreshed. She is having some difficulty with dry mouth if she opens her mouth when sleeping. She denies morning headaches. She is not requiring naps. She is not nodding off to sleep unintentionally. She denies excessive nocturia. Compliance report for the past 30 days shows 99% compliance with an average use of 6 hours and 46 minutes per night. Current setting is CPAP 7 cm of water. Residual AHI 3.1 events per hour. Test results personally patient: Low-dose CT lung screen completed on April 02, 2024. Noted is a stable calcified granuloma in the right upper lobe. Underlying emphysema with stable bleb in the right upper lobe. Interstitial changes in both lung mejía. Recommend repeating LDCT in 12 months. Intake Vital Signs 03/03/23 08:19 07/28/23 15:30 04/08/24 08:25 Height 5 ft 2 in 5 ft 2 in 5 ft 2 in Weight: 169 lb 168 lb BMI 30.9 30.7 BP 141/89 H 130/75 H Blood Pressure Location Lt brachial Rt brachial Position Sitting Sitting Respiration 18 20 H Pulse 83 66 Pulse Source Monitor Monitor Temp 96.9 F L Temperature Source Temporal Artery Pulse Oximetry (%) 94 96 Oxygen Delivery Method room air Intake Visit Reasons: 1 Y FU Bridge Opener Required: No DME Vendor: Location Accompanied by: Self Is patient in pain?: No Allergies codeine Allergy (Severe, Verified 04/08/24 09:16) Memory Loss amlodipine Adverse Reaction (Mild, Verified 04/08/24 09:16) Edema rosuvastatin Adverse Reaction (Verified 04/08/24 09:16) Heart burn Medications ???Medication ???Instructions ???Recorded ???Confirmed ???Type ascorbate calcium (vitamin C) 500 500 mg PO DAILY 02/08/19 04/08/24 History mg tablet fexofenadine 180 mg tablet 180 mg PO Q24H 02/08/19 04/08/24 History (Day Allergy) vitamin B complex (B 1 tab PO DAILY 02/08/19 04/08/24 History Complex-Vitamin B12 tablet) melatonin 3 mg tablet 3 mg PO HS PRN 04/10/21 04/08/24 History cholecalciferol (vitamin D3) 125 125 mcg PO DAILY 12/12/21 04/08/24 History mcg (5,000 unit) tablet ezetimibe 10 mg tablet 10 mg PO DAILY #30 tabs 07/13/23 04/08/24 Rx metoprolol succinate 50 mg 50 mg PO DAILY #90 tabs 01/18/24 04/08/24 Rx tablet,extended release 24 hr hydrochlorothiazide 25 mg tablet 25 mg PO DAILY #90 tabs 03/21/24 04/08/24 Rx icosapent ethyl 1 gram capsule 2 g (2 x 1 gram) PO BID #120 caps 04/04/24 04/08/24 Rx (Vascepa) albuterol sulfate 90 mcg/actuation inhalation 04/08/24 04/08/24 History aerosol inhaler Have you fallen in the past year?: No PFSH Medical History ... Normal [facility] Low Dose CT Lung Screeningon 04-02-[address] Lung Screening [facility] Imaging Services [address] [place] [address] Lung Screening MR#: [id number] Acct: [id number] Name: RENZO LAW Rep #: [id number] : 1960 F 63 From: Jak Murillo MD PCP: Dr. Rolan Domingo MD Status: REG CLI Study: Low Dose CT Lung Screening Date of Exam: 04/02 Exam# [id number] Ordering Dr: Miri Sheriff NODULIZER NODULIZER-C [id number] STUDY: LOW DOSE CT LUNG CANCER SCREENING REASON FOR EXAM: Female, 63 years old. One pack per day smoker x46 years RADIATION DOSAGE (If Supplied By Facility): CTDIvol = ( 3.02 ) mGy, DLP = ( 100.81 ) mGycm TECHNIQUE: No contrast was administered. Low dose technique was utilized (average mAS-38 and kVp 120). 1.25 mm axial source images with a slice interval of 1.25-mm were reconstructed in lung windows. 2.5 mm axial source images with a slice interval of 2.5-mm were reconstructed in lung windows. 5.0 mm axial source images with a slice interval of 5.0-mm were reconstructed in soft tissue windows. COMPARISON: 04/01/2023 FINDINGS: Lung windows show a stable calcified granuloma in the right upper lobe on axial image 42. There is underlying emphysema with stable bleb also noted in the right upper lobe. Interstitial changes noted in both lung mejía without evidence of a superimposed infiltrate, effusion, or suspicious noncalcified mass or nodule. Overall, the lung mejía are essentially unchanged from the previous study. Limited soft tissue windows show a normal-appearing thyroid gland. No suspicious adenopathy. There are calcified coronary vessels. Thoracic aorta tapers normally. Limited cuts through the upper abdomen do not show a suspicious abnormality. Bony structures show degenerative change CT/Low Dose CT Lung Screening IMPRESSION: Lung-RADS category 2 - Continue annual screening with LDCT in 12 months. IMPORTANT NOTES FOR USE: ACR Lung-RADS Version 1.1 Assessment Categories Release Date: 2018 Category: Coded 0-4 bases on nodule(s) with highest degree of suspicion. Negative screen is defined as categories 1 and 2; a positive screen is defined as categories 3 and 4. Category 3 and 4A nodules that are unchanged on interval CT should be coded as category 2, and individuals returned to screening in 12 months. Category 4X: Category 3 or 4 nodules with additional imaging findings that increase the suspicion of lung cancer, such as spiculation, GGN that doubles in size in 1 year, enlarged lymph notes, etc. Category Modifiers: S (significant finding unrelated to lung cancer) Electronically Signed: Michael Murillo MD at 8:52 EDT , CC: JORGE LUIS Sheriff; Dr. Rolan Domingo MD [employer] Maker: Signed [facility] CNOVon 09-11-2023 CNOV Office Visit (UCWSTR ) -------- RENZO LAW ([id number]) 1960 F Date Time Provider Department 09/11/23 8:00 AM GENEVA MELENDEZ [facility] During your visit today, we recorded the following information about you: Temperature Pulse Respiration Blood pressure 97.9 degrees 77/minute 22/minute 119/74 Weight 71.7 kg Geneva Melendez PA-C 09/11/2023 8:54 AM Signed This note was created using [employer]. Subjective Renzo Law is a 62 year old female. HPI Presents with cough, shortness of breath, nasal congestion for a day and a half. No fever. No chest pain. No vomiting or diarrhea. No home COVID test done. She states lots of people around her have been sick. recently had GI symptoms. She does not have any of these. She is a smoker about a pack a day. Denies history of asthma or COPD. Review of Systems Constitutional: Negative. HENT: Positive for congestion. Negative for ear pain, sinus pressure and sinus pain. Respiratory: Positive for cough, shortness of breath and wheezing. Cardiovascular: Negative. Gastrointestinal: Negative. Genitourinary: Negative. Musculoskeletal: Negative. All other systems reviewed and are negative. PAST MEDICAL HISTORY Diagnosis Date Carpal tunnel syndrome 04/18/2010 RIGHT Other and unspecified disc disorder of lumbar region Current Outpatient Medications Medication Sig Dispense Refill ergocalciferol, vitamin D2, (VITAMIN D2 ORAL) Take by mouth. Cyanocobalamin (VITAMIN B-12) 250 mcg tab Take by mouth. fexofenadine hcl(DAY 180 MG TAB) Take one(1) tablet daily. 30 12 ascorbic acid (VITAMIN C) 500 mg ORAL Tab Take one(1) tablet daily. 0 predniSONE (DELTASONE) 20 mg tablet Take 2 tablets by mouth once daily for 5 days. 10 tablet 0 benzonatate (TESSALON PERLES) 100 mg capsule Take 2 capsules by mouth three times a day as needed. 30 capsule 0 albuterol HFA (PROAIR HFA) 90 mcg/actuation inhaler Inhale 2 Puffs as instructed every 6 hours as needed. 1 Each 0 varenicline tartrate (CHANTIX ORAL) Take by mouth. (Patient not taking: Reported on 01/17/2023) cyclobenzaprine (FLEXERIL) 10 mg tablet Take 1 tablet by mouth three times daily as needed for Muscle Spasm. (Patient not taking: No sig reported) 21 tablet 0 OTC PRODUCT Flash fighter - takes for menopause. Takes 3 tablets at evening meal (Patient not taking: Reported on 01/17/2023) 0 naproxen sodium(ALEVE 220 MG TAB) takes 2 tablets twice daily as needed for back pain 0 Multivitamin (DAILY MULTIPLE) ORAL Tab Take one(1) tablet daily. (Patient not taking: Reported on 01/17/2023) 0 No current facility-administered medications for this visit. PAST SURGICAL HISTORY Procedure Laterality Date APPENDECTOMY NEUROPLASTY AND/TRANSPOS MEDIAN NRV CARPAL TUNNE 03/23/07 LEFT NEUROPLASTY AND/TRANSPOS MEDIAN NRV CARPAL TUNNE 04/18/2010 RIGHT PAST SURGICAL HISTORY OF uterus PAST SURGICAL HISTORY OF 2010? trigger finger right pinky TOTAL ABDOMINAL HYSTERECT W/WO RMVL TUBE OVARY Hysterectomy, [place] FAMILY HISTORY Problem Relation Age of Onset Heart Mother has pacemaker other (Other [Other]) Father unknown Social History Tobacco Use Smoking status: Every Day Packs/day: 1.00 Years: 20.00 Additional pack years: 0.00 Total pack years: 20.00 Types: Cigarettes Smokeless tobacco: Never Substance Use Topics Alcohol use: Yes Comment: 1 drink per month Drug use: No Objective BP 119/74 Pulse 77 Temp 36.6 ?C (97.9 ?F) Resp 22 Wt 71.7 kg (158 lb) SpO2 96% Physical Exam Vitals reviewed. Constitutional: Appearance: Normal appearance. HENT: Head: Normocephalic and atraumatic. Right Ear: Tympanic membrane, ear canal and external ear normal. Left Ear: Tympanic membrane, ear canal and external ear normal. Nose: Congestion present. Mouth/Throat: Mouth: Mucous membranes are moist. Pharynx: Oropharynx is clear. Cardiovascular: Rate and Rhythm: Normal rate and regular rhythm. Heart sounds: Normal heart sounds. Pulmonary: Effort: Pulmonary effort is normal. Breath sounds: Normal breath sounds. Musculoskeletal: Cervical back: Neck supple. Skin: General: Skin is warm and dry. Neurological: Mental Status: She is alert. Assessment and Plan ASSESSMENT/PLAN: 1. Viral URI with cough - ICD9: 465.9, ICD10: J06.9 - Discussed viral etiology and rationale for treatment. - Symptomatic treatment with prn analgesia - Supportive care with fluids and rest - Follow up in 3-5 days if symptoms persist or sooner if worsening of symptoms -Chest x-ray is clear. Patient declined COVID testing. Prednisone, tessalon and albuterol MDI rx. Discussed red flags to be seen again. Patient agreeable. - XR CHEST 2V FRONTAL/LAT Geneva Melendez PA-C Allergies As of Date: 09/11/2023 Noted Allergy Reaction CODEINE 12/01/2006 Comments: No memory for 6-7 hours NAPROSYN (NAPROXEN) (more content not included)... Normal [facility] XR CHEST 2V FRONTAL/LATon XR CHEST 2V FRONTAL/LAT * * *Final Report* * * DATE OF EXAM: Sep 11 2023 8:30AM WOX [id number] - XR CHEST 2V FRONTAL/LAT / PROCEDURE REASON: Acute cough * * * * Physician Interpretation * * * * EXAMINATION: CHEST RADIOGRAPH (2 VIEW FRONTAL and LATERAL) CLINICAL HISTORY: Acute cough MQ: XC2_6 EXAM DATE/TIME: 09/11/2023 8:30 AM COMPARISON: Chest x-ray on 08/16/2018 RESULT: Lines, tubes, and devices: None. Lungs and pleura: No consolidation. No lung mass. No pleural effusion. No pneumothorax. Cardiomediastinal silhouette: Stable cardiomediastinal silhouette. Bones and soft tissues: There are degenerative changes in the spine and shoulders. IMPRESSION: No acute radiographic abnormality. [employer] Maker: JAMARCUS Transcribe Date/Time: Sep 11 2023 8:32A Dictated by : JM GO MD This examination was interpreted and the report reviewed and electronically signed by: JM GO MD on Sep 11 2023 8:33AM EST [id number] Normal [facility] XR Chest PA and Lateralon IMPRESSION: No acute radiographic abnormality. [employer] Maker: PSYCHIATRIC Transcribe Date/Time: Sep 11 2023 8:32A Dictated by : JM GO MD This examination was interpreted and the report reviewed and electronically signed by: JM GO MD on Sep 11 2023 8:33AM EST DIVISION OF RADIOLOGY * * *Final Report* * * DATE OF EXAM: Sep 11 2023 8:30AM WOX [id number] - XR CHEST 2V FRONTAL/LAT / PROCEDURE REASON: Acute cough * * * * Physician Interpretation * * * * EXAMINATION: CHEST RADIOGRAPH (2 VIEW FRONTAL & LATERAL) CLINICAL HISTORY: Acute cough MQ: XC2_6 EXAM DATE/TIME: 09/11/2023 8:30 AM COMPARISON: Chest x-ray on 08/16/2018 RESULT: Lines, tubes, and devices: None. Lungs and pleura: No consolidation. No lung mass. No pleural effusion. No pneumothorax. Cardiomediastinal silhouette: Stable cardiomediastinal silhouette. Bones and soft tissues: There are degenerative changes in the spine and shoulders. DIVISION OF RADIOLOGY Provider, [facility] - 09/11/2023 * * *Final Report* * * DATE OF EXAM: Sep 11 2023 8:30AM WOX [id number] - XR CHEST 2V FRONTAL/LAT / PROCEDURE REASON: Acute cough * * * * Physician Interpretation * * * * EXAMINATION: CHEST RADIOGRAPH (2 VIEW FRONTAL & LATERAL) CLINICAL HISTORY: Acute cough MQ: XC2_6 EXAM DATE/TIME: 09/11/2023 8:30 AM COMPARISON: Chest x-ray on 08/16/2018 RESULT: Lines, tubes, and devices: None. Lungs and pleura: No consolidation. No lung mass. No pleural effusion. No pneumothorax. Cardiomediastinal silhouette: Stable cardiomediastinal silhouette. Bones and soft tissues: There are degenerative changes in the spine and shoulders. IMPRESSION IMPRESSION: No acute radiographic abnormality. [employer] Maker: JAMARCUS Transcribe Date/Time: Sep 11 2023 8:32A Dictated by : JM GO MD This examination was interpreted and the report reviewed and electronically signed by: JM GO MD on Sep 11 2023 8:33AM EST [facility] Radiology Study observation (narrative) [facility] XR Chest PA and LateralOrder ed By: [facility] Provider on 09-11-2023 [facility] Basophil percentageOrdered B y: Loly Cervantes on 07-25-2023 Bilirubin [Mass/Vol] 0.50 mg/dL 0.20-1.00 [facility] Comment on above: For patients on eltr ombopag therapy, use of Dimension Bradford TBIL is not recommended. Cholesterol [Mass/Vol] 195 mg/dL <200 [facility] Comment on above: <200 mg/dL Desirable 200-240 mg/dL Borderline >240 mg/dL High Risk Protein [Mass/Vol] 7.3 g/dL 6.4-8.2 [facility] Triglyceride [Mass/Vol] 512 mg/dL <199 [facility] Comment on above: The drugs N-Acetylcy steine and Metamizole may falsely depress this assay. TRIGLYCERIDE IS GREATER THAN 400 mg/dL. LDL RESULT IS INVALID AND WILL NOT BE REPORTED.Serum Triglycerides Reference Interval Normal <150 mg/dL Borderline high 150 - 199 mg/dL High 200 - 499 mg/dL Very High > or = 500 mg/dL Direct bilirubinOrdered By: Loly Cervantes on 07-25-2023 Bilirubin.direct [Mass/Vol] 0.11 mg/dL 0.00-0.30 [facility] Laboratory - Chemistry and C hemistry - challengeOrdered By: Loly Cervantes on 07-25-2023 ALP [Catalytic activity/Vol] 108 U/L 45-117 [facility] ALT [Catalytic activity/Vol] 30 U/L 13-56 [facility] Globulin (S) [Mass/Vol] 3.4 g/dL 2.2-4.2 [facility] Serum or plasma albumin ladonna urement (mass/volume)Ordered By: Loly Cervantes on 07-25-2023 Albumin [Mass/Vol] 3.9 g/dL 3.2-5.0 [facility] Serum or plasma cholesterol in HDL measurement (mass/volume)Ordered By: Loly Cervantes on 07-25-2023 Cholesterol in HDL [Mass/Vol] 39 mg/dL >40 [facility] Comment on above: The drugs N-Acetylcy steine and Metamizole may falsely depress this assay. Reference Range HDL <40 mg/dL Low HDL Cholesterol HDL >or= 60 mg/dL High HDL Cholesterol Serum or plasma cholesterol in VLDL measurement (mass/volume)Ordered By: Loly Cervantes on 07-25-2023 Cholesterol in VLDL [Mass/Vol] [facility] Comment on above: Test not performed Serum or plasma low density lipoprotein (LDL) cholesterol measurement (mass/volume)Ordered By: Loly Cervantes on 07-25-2023 Cholesterol in LDL [Mass/Vol] [facility] Comment on above: Test not performed Thin prep Papanicolaou smear with manual screeningOrdered By: Loly Cervantes on 07-25-2023 Thin prep Papanicolaou smear with manual screening 16 U/L 15-37 [facility] Basophil percentageOrdered B y: Loly Cervantes on 03-28-2023 Bilirubin [Mass/Vol] 0.40 mg/dL 0.20-1.00 [facility] Comment on above: For patients on eltr ombopag therapy, use of Dimension Bradford TBIL is not recommended. Cholesterol [Mass/Vol] 163 mg/dL <200 [facility] Comment on above: <200 mg/dL Desirable 200-240 mg/dL Borderline >240 mg/dL High Risk Protein [Mass/Vol] 7.2 g/dL 6.4-8.2 [facility] Triglyceride [Mass/Vol] 448 mg/dL <199 [facility] Comment on above: The drugs N-Acetylcy steine and Metamizole may falsely depress this assay. TRIGLYCERIDE IS GREATER THAN 400 mg/dL. LDL RESULT IS INVALID AND WILL NOT BE REPORTED.Serum Triglycerides Reference Interval Normal <150 mg/dL Borderline high 150 - 199 mg/dL High 200 - 499 mg/dL Very High > or = 500 mg/dL Direct bilirubinOrdered By: Loly Cervantes on 03-28-2023 Bilirubin.direct [Mass/Vol] 0.12 mg/dL 0.00-0.30 [facility] Laboratory - Chemistry and C hemistry - challengeOrdered By: Loly Cervantes on 03-28-2023 ALP [Catalytic activity/Vol] 94 U/L 45-117 [facility] ALT [Catalytic activity/Vol] 27 U/L 13-56 [facility] Globulin (S) [Mass/Vol] 3.5 g/dL 2.2-4.2 [facility] Serum or plasma albumin ladonna urement (mass/volume)Ordered By: Loly Cervantes on 03-28-2023 Albumin [Mass/Vol] 3.7 g/dL 3.2-5.0 [facility] Serum or plasma cholesterol in HDL measurement (mass/volume)Ordered By: Loly Cervantes on 03-28-2023 Cholesterol in HDL [Mass/Vol] 38 mg/dL >40 [facility] Comment on above: The drugs N-Acetylcy steine and Metamizole may falsely depress this assay. Reference Range HDL <40 mg/dL Low HDL Cholesterol HDL >or= 60 mg/dL High HDL Cholesterol Serum or plasma cholesterol in VLDL measurement (mass/volume)Ordered By: Loly Cervantes on 03-28-2023 Cholesterol in VLDL [Mass/Vol] [facility] Comment on above: Test not performed Serum or plasma low density lipoprotein (LDL) cholesterol measurement (mass/volume)Ordered By: Loly Cervantes on 03-28-2023 Cholesterol in LDL [Mass/Vol] [facility] Comment on above: Test not performed Thin prep Papanicolaou smear with manual screeningOrdered By: Loly Cervantes on 03-28-2023 Thin prep Papanicolaou smear with manual screening 14 U/L 15-37 [facility] CNOVon 01-17-2023 CNOV Office Visit (UCWSTR ) -------- RENZO LAW ([id number]) 1960 F Date Time Provider Department 01/17/23 8:45 AM GENEVA MELENDEZ During your visit today, we recorded the following information about you: Temperature Pulse Respiration Blood pressure 98.4 degrees 83/minute 20/minute 126/78 Weight 80.3 kg Geneva Melendez PA-C 01/17/2023 9:10 AM Signed This note was created using [employer]. Subjective Renzo Law is a 62 year old female. HPI Patient presents with a chief complaint of cough, congestion over the past week. She has had some itchy eyes initially. She is on fexofenadine daily. She also took some Benadryl and tried some Sudafed. Was not helping. She does have seasonal allergies this time of year. No fever. She states the cough has kept her up at night. She is a smoker. No diarrhea or vomiting. After coughing fit she feels a little short of breath but otherwise no shortness of breath. No chest pain. Cough has been productive. Review of Systems Constitutional: Negative for fever. HENT: Positive for congestion and rhinorrhea. Negative for ear pain and sore throat. Respiratory: Positive for cough, shortness of breath and wheezing. Negative for chest tightness. Cardiovascular: Negative. Gastrointestinal: Negative. Genitourinary: Negative. Musculoskeletal: Negative. All other systems reviewed and are negative. PAST MEDICAL HISTORY Diagnosis Date Carpal tunnel syndrome 04/18/2010 RIGHT Other and unspecified disc disorder of lumbar region Current Outpatient Medications Medication Sig Dispense Refill ergocalciferol, vitamin D2, (VITAMIN D2 ORAL) Take by mouth. Cyanocobalamin (VITAMIN B-12) 250 mcg tab Take by mouth. albuterol HFA (PROAIR HFA) 90 mcg/actuation inhaler Inhale 2 Puffs as instructed every 4 hours as needed. 1 Inhaler 1 fexofenadine hcl(DAY 180 MG TAB) Take one(1) tablet daily. 30 12 naproxen sodium(ALEVE 220 MG TAB) takes 2 tablets twice daily as needed for back pain 0 ascorbic acid (VITAMIN C) 500 mg ORAL Tab Take one(1) tablet daily. 0 albuterol HFA (PROAIR HFA) 90 mcg/actuation inhaler Inhale 2 Puffs as instructed every 6 hours as needed. 1 Each 0 predniSONE (DELTASONE) 20 mg tablet Take 2 tablets by mouth once daily for 5 days. 10 tablet 0 benzonatate (TESSALON PERLES) 100 mg capsule Take 2 capsules by mouth three times daily as needed. 30 capsule 0 doxycycline (VIBRA-TABS) 100 mg tablet Take 1 tablet by mouth twice daily for 7 days. 14 tablet 0 varenicline tartrate (CHANTIX ORAL) Take by mouth. (Patient not taking: Reported on 01/17/2023) benzonatate (TESSALON PERLE) 100 mg capsule Take 1-2 capsules by mouth three times daily as needed. (Patient not taking: No sig reported) 30 capsule 0 albuterol HFA (VENTOLIN HFA) 90 mcg/actuation inhaler Inhale 2 Puffs as instructed every 4 hours as needed for Wheezing/Shortness of Breath. (Patient not taking: No sig reported) 1 Inhaler 0 cyclobenzaprine (FLEXERIL) 10 mg tablet Take 1 tablet by mouth three times daily as needed for Muscle Spasm. (Patient not taking: No sig reported) 21 tablet 0 Benzonatate (TESSALON) 200 mg capsule Take 200 mg by mouth three times daily as needed for Cough. (Patient not taking: No sig reported) 40 capsule 0 albuterol 90 mcg/actuation aero Inhale 2 Puffs as instructed every 4 hours as needed (shortness of breath). (Patient not taking: No sig reported) 1 Inhaler 0 OTC PRODUCT Flash fighter - takes for menopause. Takes 3 tablets at evening meal (Patient not taking: Reported on 01/17/2023) 0 Multivitamin (DAILY MULTIPLE) ORAL Tab Take one(1) tablet daily. (Patient not taking: Reported on 01/17/2023) 0 No current facility-administered medications for this visit. PAST SURGICAL HISTORY Procedure Laterality Date APPENDECTOMY NEUROPLASTY AND/TRANSPOS MEDIAN NRV CARPAL TUNNE 03/23/07 LEFT NEUROPLASTY AND/TRANSPOS MEDIAN NRV CARPAL TUNNE 04/18/2010 RIGHT PAST SURGICAL HISTORY OF uterus PAST SURGICAL HISTORY OF 2010? trigger finger right pinky TOTAL ABDOMINAL HYSTERECT W/WO RMVL TUBE OVARY Hysterectomy, [place] FAMILY HISTORY Problem Relation Age of Onset Heart Mother has pacemaker other (Other [Other]) Father unknown Social History Tobacco Use Smoking status: Every Day Packs/day: 1.00 Years: 20.00 Pack years: 20.00 Types: Cigarettes Smokeless tobacco: Never Substance Use Topics Alcohol use: Yes Comment: 1 drink per month Drug use: No Objective BP 126/78 Pulse 83 Temp 36.9 ?C (98.4 ?F) Resp 20 Wt 80.3 kg (177 lb) SpO2 97% BMI 32.57 kg/m? Physical Exam Vitals reviewed. Constitutional: Appearance: Normal appearance. HENT: Head: Normocephalic and atraumatic. Right Ear: Tympanic membrane, ear canal and external ear normal. Left Ear: Tympanic membrane, ear canal and external ear normal. Nose: Congestion present. Mouth/Throa (more content not included)... Normal [facility] Basophil percentageon 2021 Bilirubin [Mass/Vol] 0.40 mg/dL 0.20-1.00 [facility] Work Phone: Comment on above: For patients on eltr ombopag therapy, use of Dimension Bradford TBIL is not recommended. Cholesterol [Mass/Vol] 232 mg/dL <200 [facility] Work Phone: Comment on above: <200 mg/dL Desirable 200-240 mg/dL Borderline >240 mg/dL High Risk Protein [Mass/Vol] 7.3 g/dL 6.4-8.2 [facility] Work Phone: Triglyceride [Mass/Vol] 748 mg/dL <199 [facility] Work Phone: Comment on above: The drugs N-Acetylcy steine and Metamizole may falsely depress this assay. TRIGLYCERIDE IS GREATER THAN 400 mg/dL. LDL RESULT IS INVALID AND WILL NOT BE REPORTED.Serum Triglycerides Reference Interval Normal <150 mg/dL Borderline high 150 - 199 mg/dL High 200 - 499 mg/dL Very High > or = 500 mg/dL Direct bilirubinon 2 Bilirubin.direct [Mass/Vol] 0.11 mg/dL 0.00-0.30 [facility] Work Phone: [phone] Laboratory - Chemistry and C hemistry - challengeon 07-26-2022 ALP [Catalytic activity/Vol] 94 U/L 45-117 [facility] Work Phone: [phone] ALT [Catalytic activity/Vol] 33 U/L 13-56 [facility] Work Phone: [phone] Globulin (S) [Mass/Vol] 3.4 g/dL 2.2-4.2 [facility] Work Phone: [phone] Serum or plasma albumin ladonna urement (mass/volume)on 07-26-2022 Albumin [Mass/Vol] 3.9 g/dL 3.2-5.0 [facility] Work Phone: [phone] Serum or plasma cholesterol in HDL measurement (mass/volume)on 07-26-2022 Cholesterol in HDL [Mass/Vol] 35 mg/dL >40 [facility] Work Phone: Comment on above: The drugs N-Acetylcy steine and Metamizole may falsely depress this assay. Reference Range HDL <40 mg/dL Low HDL Cholesterol HDL >or= 60 mg/dL High HDL Cholesterol Serum or plasma cholesterol in VLDL measurement (mass/volume)on 07-26-2022 Cholesterol in VLDL [Mass/Vol] [facility] Work Phone: Comment on above: Test not performed Serum or plasma low density lipoprotein (LDL) cholesterol measurement (mass/volume)on 07-26-2022 Cholesterol in LDL [Mass/Vol] [facility] Work Phone: Comment on above: Test not performed Thin prep Papanicolaou smear with manual screeningon 07-26-2022 Thin prep Papanicolaou smear with manual screening 18 U/L 15-37 [facility] Work Phone: Basophil percentageon 2021 Chloride [Moles/Vol] 106 mmol/L 98-107 [facility] Work Phone: [phone] Glucose [Mass/Vol] 256 mg/dL 74-106 [facility] Work Phone: Comment on above: Glucose result great er than or equal to 200 mg/dLsuggests DIABETES MELLITUS per A.D.A. criteria. Potassium [Moles/Vol] 3.8 mmol/L 3.5-5.1 [facility] Work Phone: Sodium [Moles/Vol] 138 mmol/L 136-145 [facility] Work Phone: Laboratory - Chemistry and C hemistry - challengeon 01-25-2022 CO2 [Moles/Vol] 27.0 mmol/L 21.0-32.0 [facility] Work Phone: Urea nitrogen/Creatinine [Mass ratio] 15.9 mg/mg 10-20 [facility] Work Phone: No Panel Informationon 01-25 Estimated GFR (MDRD) Amer 67 mL/min >60 [facility] Work Phone: Comment on above: GFR Calc Estimated GFR (MDRD) Non-Af Amer 55 mL/min >60 [facility] Work Phone: Comment on above: Non- GFR Calc Serum or plasma calcium ladonna urement (mass/volume)on 01-25-2022 Calcium [Mass/Vol] 8.7 mg/dL 8.5-10.1 [facility] Work Phone: Serum or plasma creatinine m easurement (mass/volume)on 01-25-2022 Creatinine [Mass/Vol] 1.07 mg/dL 0.55-1.02 [facility] Work Phone: Comment on above: The validity of the calculated GFR & GFRAA in patients over 70 years has not been determined. Clinical correlation is essential. Serum or plasma urea nitroge n measurement (mass/volume)on 01-25-2022 Urea nitrogen [Mass/Vol] 17 mg/dL 7-18 [facility] Work Phone: Thin prep Papanicolaou smear with manual screeningon 01-25-2022 Thin prep Papanicolaou smear with manual screening 5 5-15 [facility] Work Phone: Basophil percentageon 2021 Chloride [Moles/Vol] 105 mmol/L 98-107 [facility] Work Phone: Glucose [Mass/Vol] 216 mg/dL 74-106 [facility] Work Phone: Comment on above: Glucose result great er than or equal to 200 mg/dLsuggests DIABETES MELLITUS per A.D.A. criteria. Potassium [Moles/Vol] 3.8 mmol/L 3.5-5.1 [facility] Work Phone: Sodium [Moles/Vol] 140 mmol/L 136-145 [facility] Work Phone: Laboratory - Chemistry and C hemistry - challengeon 01-03-2022 CO2 [Moles/Vol] 27.0 mmol/L 21.0-32.0 [facility] Work Phone: Urea nitrogen/Creatinine [Mass ratio] 21.9 mg/mg - [facility] Work Phone: No Panel Informationon 01-03 Estimated GFR (MDRD) Amer 68 mL/min >60 [facility] Work Phone: Comment on above: GFR Calc Estimated GFR (MDRD) Non-Af Amer 56 mL/min >60 [facility] Work Phone: Comment on above: Non- GFR Calc Serum or plasma calcium ladonna urement (mass/volume)on 01-03-2022 Calcium [Mass/Vol] 8.8 mg/dL 8.5-10.1 [facility] Work Phone: Serum or plasma creatinine m easurement (mass/volume)on 01-03-2022 Creatinine [Mass/Vol] 1.05 mg/dL 0.55-1.02 [facility] Work Phone: Comment on above: The validity of the calculated GFR & GFRAA in patients over 70 years has not been determined. Clinical correlation is essential. Serum or plasma urea nitroge n measurement (mass/volume)on 01-03-2022 Urea nitrogen [Mass/Vol] 23 mg/dL 7-18 [facility] Work Phone: Thin prep Papanicolaou smear with manual screeningon 01-03-2022 Thin prep Papanicolaou smear with manual screening 8 5-15 [facility] Work Phone: Absolute lymphocyte counton 11-20-2021 Lymphocytes Auto (Unsp spec) [#/Vol] 2.44 10*3/uL 0.83-4.51 [facility] Work Phone: Basophil percentageon 2021 Basophils/100 WBC (Bld) 0.5 % 0-1 [facility] Work Phone: Chloride [Moles/Vol] 109 mmol/L 98-107 [facility] Work Phone: Eosinophils/100 WBC (Bld) 3.2 % 0-5 [facility] Work Phone: Glucose [Mass/Vol] 164 mg/dL 74-106 [facility] Work Phone: Comment on above: Fasting Glucose resu lt greater than or equal to 126 mg/dL suggests DIABETES MELLITUS per A.D.A. criteria. Neutrophils (Bld) [#/Vol] 4.9 10*3/uL 2.0-7.7 [facility] Work Phone: Neutrophils/100 WBC (Bld) 58.9 % 47-70 [facility] Work Phone: Potassium [Moles/Vol] 3.6 mmol/L 3.5-5.1 [facility] Work Phone: Sodium [Moles/Vol] 141 mmol/L 136-145 [facility] Work Phone: WBC (Bld) [#/Vol] 8.4 10*3/uL 4.4-11.0 [facility] Work Phone: Blood erythrocytes count (nu mber/volume)on 11-20-2021 RBC (Bld) [#/Vol] 4.32 10*6/uL 4.2-5.4 [facility] Work Phone: Blood hemoglobin measurement (mass/volume)on 11-20-2021 Hemoglobin (Bld) [Mass/Vol] 12.6 g/dL 12.0-15.0 [facility] Work Phone: Blood lymphocytes/100 leukoc yteson 11-20-2021 Lymphocytes/100 WBC (Bld) 29.2 % 19-41 [facility] Work Phone: Blood monocytes/100 leukocyt eson 11-20-2021 Monocytes/100 WBC (Bld) 7.8 % 0-10 [facility] Work Phone: Blood platelet mean volumeon 11-20-2021 Platelet mean volume (Bld) [Entitic vol] 12.0 fL 6.2-12.0 [facility] Work Phone: Determination of erythrocyte mean corpuscular volume (MCV)on 11-20-2021 MCV (RBC) [Entitic vol] 87.5 fL 81-99 [facility] Work Phone: Hematocrit Auto (Bld) [Volum e fraction]on 11-20-2021 Hematocrit (Bld) [Volume fraction] 37.8 % 37-47 [facility] Work Phone: Laboratory - Chemistry and C hemistry - challengeon 11-20-2021 CO2 [Moles/Vol] 27.0 mmol/L 21.0-32.0 [facility] Work Phone: Free T4 [Mass/Vol] 0.87 ng/dL 0.76-1.46 [facility] Work Phone: Urea nitrogen/Creatinine [Mass ratio] 19.7 mg/mg 10-20 [facility] Work Phone: Laboratory - Hematology and Cell countson 11-20-2021 Erythrocyte distribution width (RBC) [Entitic vol] 40.5 fL 35.1-43.9 [facility] Work Phone: Erythrocyte distribution width (RBC) [Ratio] 12.7 % 11.6-14.6 [facility] Work Phone: Immature granulocytes/100 WBC (Bld) 0.400 % 0.0-0.9 [facility] Work Phone: Comment on above: IG% - Immature Granu locytes (promyelocytes, myelocytes and metamyelocytes) > 1% indicates that a LEFT SHIFT is Present. MCH (RBC) [Entitic mass] 29.2 pg 27.0-32.0 [facility] Work Phone: Nucleated RBC/100 WBC (Bld) [Ratio] 0 % 0-5 [facility] Work Phone: [phone] MCHC Auto (RBC) [Mass/Vol]on 11-20-2021 MCHC (RBC) [Mass/Vol] 33.3 g/dL 32-36 [facility] Work Phone: No Panel Informationon 11-20 D-Dimer Quantitative (PE/DVT) 0.46 FEU/ug/m 0.27-0.49 [facility] Work Phone: Comment on above: NORMAL D-Dimer level (<0.50) indicates no DVT or PE. Estimated GFR (MDRD) Amer 80 mL/min >60 [facility] Work Phone: Comment on above: GFR Calc Estimated GFR (MDRD) Non-Af Amer 66 mL/min >60 [facility] Work Phone: Comment on above: Non- GFR Calc Platelets bldon 11-20-2021 Platelets (Bld) [#/Vol] 177 10*3/uL 150-450 [facility] Work Phone: [phone] Serum or plasma calcium ladonna urement (mass/volume)on 11-20-2021 Calcium [Mass/Vol] 8.8 mg/dL 8.5-10.1 [facility] Work Phone: [phone] Serum or plasma creatinine m easurement (mass/volume)on 11-20-2021 Creatinine [Mass/Vol] 0.91 mg/dL 0.55-1.02 [facility] Work Phone: [phone] Comment on above: The validity of the calculated GFR & GFRAA in patients over 70 years has not been determined. Clinical correlation is essential. Serum or plasma urea nitroge n measurement (mass/volume)on 11-20-2021 Urea nitrogen [Mass/Vol] 18 mg/dL 7-18 [facility] Work Phone: Thin prep Papanicolaou smear with manual screeningon 11-20-2021 Thin prep Papanicolaou smear with manual screening 5 5-15 [facility] Work Phone: Vital Signs Date Time Vital Sign Value Performing Clinician Yazan stokes 07-28-2023 15:30-0500 Body height 157.[address] Rolan Domingo Work Phone: [facility] 07-28-2023 15:30-0500 Body mass index (BMI) [Ratio] 30.9 kg/m2 Dr. Rolan Domingo Work Phone: [facility] 07-28-2023 15:30-0500 Body weight 76.[address] Rolan Domingo Work Phone: [facility] 07-28-2023 15:30-0500 Diastolic blood pressure 89 mm[Hg] Dr. Rolan Domingo Work Phone: [facility] 07-28-2023 15:30-0500 Heart rate 83 /min Dr. Rolan Domingo Work Phone: [facility] 07-28-2023 15:30-0500 Respiratory rate 18 /min Dr. Rolan Domingo Work Phone: [facility] 07-28-2023 15:30-0500 SaO2% (BldA) [Mass fraction] 94 % Dr. Rolan Domingo Work Phone: [facility] 07-28-2023 15:30-0500 Systolic blood pressure 141 mm[Hg] Dr. Rolan Domingo Work Phone: [facility] 03-03-2023 08:19-0400 Body height 157.[address] Rolan Domingo Work Phone: [facility] 03-03-2023 08:19-0400 Body mass index (BMI) [Ratio] 31.6 kg/m2 Dr. Rolan Domingo Work Phone: [facility] 03-03-2023 08:19-0400 Body temperature 97.6 [degF] Dr. Rolan Domingo Work Phone: [facility] 03-03-2023 08:19-0400 Body weight 78.[address] Rolan Domingo Work Phone: [facility] 03-03-2023 08:19-0400 Diastolic blood pressure 79 mm[Hg] Dr. Rolan Domingo Work Phone: [facility] 03-03-2023 08:19-0400 Heart rate 72 /min Dr. Rolan Domingo Work Phone: [facility] 03-03-2023 08:19-0400 Respiratory rate 18 /min Dr. Rolan Domingo Work Phone: [facility] 03-03-2023 08:19-0400 SaO2% (BldA) [Mass fraction] 97 % Dr. Rolan Domingo Work Phone: [facility] 03-03-2023 08:19-0400 Systolic blood pressure 147 mm[Hg] Dr. Rolan Domingo Work Phone: [facility] 01-27-2023 15:27-0400 Body mass index (BMI) [Ratio] 31.4 kg/m2 Dr. Rolan Domingo Work Phone: [facility] 01-27-2023 15:27-0400 Body weight 78.[address] Rolan Domingo Work Phone: [facility] 01-27-2023 15:27-0400 Diastolic blood pressure 79 mm[Hg] Dr. Rolan Domingo Work Phone: [facility] 01-27-2023 15:27-0400 Heart rate 79 /min Dr. Rolan Domingo Work Phone: [facility] 01-27-2023 15:27-0400 Respiratory rate 18 /min Dr. Rolan Domingo Work Phone: [facility] 01-27-2023 15:27-0400 SaO2% (BldA) [Mass fraction] 6 % Dr. Rolan Domingo Work Phone: [facility] 01-27-2023 15:27-0400 Systolic blood pressure 132 mm[Hg] Dr. Rolan Domingo Work Phone: [facility] 01-17-2023 08:41-0400 Body temperature 98.4 [degF] Geneva Athy PA-C Work Phone: [facility] 01-17-2023 08:41-0400 Body weight 80.29 kg Geneva Athy PA-C Work Phone: [facility] 01-17-2023 08:41-0400 Diastolic blood pressure 78 mm[Hg] Geneva Athy PA-C Work Phone: [facility] 01-17-2023 08:41-0400 Heart rate 83 /min Geneva Athy PA-C Work Phone: [facility] 01-17-2023 08:41-0400 Respiratory rate 20 /min Geneva Athy PA-C Work Phone: [facility] 01-17-2023 08:41-0400 SaO2% (BldA) [Mass fraction] 97 % Geneva Athy PA-C Work Phone: [facility] 01-17-2023 08:41-0400 Systolic blood pressure 126 mm[Hg] Geneva Athy PA-C Work Phone: [facility] 07-21-2022 15:35-0500 Body height 157.[address] Rolan Domingo Work Phone: [facility] Work Phone: 07-21-2022 15:35-0500 Body mass index (BMI) [Ratio] 32.3 kg/m2 Dr. Rolan Domingo Work Phone: [facility] Work Phone: 07-21-2022 15:35-0500 Body weight 80.[address] Rolan Domingo Work Phone: [facility] Work Phone: 07-21-2022 15:35-0500 Diastolic blood pressure 82 mm[Hg] Dr. Rolan Domingo Work Phone: [facility] Work Phone: 07-21-2022 15:35-0500 Heart rate 85 /min Dr. Rolan Domingo Work Phone: [facility] Work Phone: 07-21-2022 15:35-0500 Respiratory rate 18 /min Dr. Rolan Domingo Work Phone: [facility] Work Phone: 07-21-2022 15:35-0500 SaO2% (BldA) [Mass fraction] 93 % Dr. Rolan Domingo Work Phone: [facility] Work Phone: 07-21-2022 15:35-0500 Systolic blood pressure 135 mm[Hg] Dr. Rolan Domingo Work Phone: [facility] Work Phone: 01-27-2022 15:32-0400 Body height 157.[address] Rolan Domingo Work Phone: [facility] Work Phone: 01-27-2022 15:32-0400 Body mass index (BMI) [Ratio] 32.3 kg/m2 Dr. Rolan Domingo Work Phone: [facility] Work Phone: 01-27-2022 15:32-0400 Body weight 80.[address] Rolan Domingo Work Phone: [facility] Work Phone: 01-27-2022 15:32-0400 Diastolic blood pressure 77 mm[Hg] Dr. Rolan Domingo Work Phone: [facility] Work Phone: 01-27-2022 15:32-0400 Heart rate 69 /min Dr. Rolan Domingo Work Phone: [facility] Work Phone: 01-27-2022 15:32-0400 Respiratory rate 18 /min Dr. Rolan Domingo Work Phone: [facility] Work Phone: 01-27-2022 15:32-0400 SaO2% (BldA) [Mass fraction] 95 % Dr. Rolan Domingo Work Phone: [facility] Work Phone: 01-27-2022 15:32-0400 Systolic blood pressure 135 mm[Hg] Dr. Rolan Domingo Work Phone: [facility] Work Phone: 01-27-2022 15:32-0400 Body height 157.[address] Rolan Domingo Work Phone: [facility] Work Phone: 01-27-2022 15:32-0400 Body mass index (BMI) [Ratio] 32.3 kg/m2 Dr. Rolan Domingo Work Phone: [facility] Work Phone: 01-27-2022 15:32-0400 Body weight 80.[address] Rolan Domingo Work Phone: [facility] Work Phone: 01-27-2022 15:32-0400 Diastolic blood pressure 77 mm[Hg] Dr. Rolan Domingo Work Phone: [facility] Work Phone: 01-27-2022 15:32-0400 Heart rate 69 /min Dr. Rolan Domingo Work Phone: [facility] Work Phone: 01-27-2022 15:32-0400 Respiratory rate 18 /min Dr. Rolan Domingo Work Phone: [facility] Work Phone: 01-27-2022 15:32-0400 SaO2% (BldA) [Mass fraction] 95 % Dr. Rolan Domingo Work Phone: [facility] Work Phone: 01-27-2022 15:32-0400 Systolic blood pressure 135 mm[Hg] Dr. Rolan Domingo Work Phone: [facility] Work Phone: 12-12-2021 13:11-0400 Body mass index (BMI) [Ratio] 31.8 kg/m2 Dr. Rolan Domingo Work Phone: [facility] Work Phone: 12-12-2021 13:11-0400 Body weight 79.[address] Rolan Domingo Work Phone: [facility] Work Phone: 12-12-2021 13:11-0400 Diastolic blood pressure 68 mm[Hg] Dr. Rolan Domingo Work Phone: [facility] Work Phone: 12-12-2021 13:11-0400 Heart rate 60 /min Dr. Rolan Domingo Work Phone: [facility] Work Phone: 12-12-2021 13:11-0400 Respiratory rate 16 /min Dr. Rolan Domingo Work Phone: [facility] Work Phone: 12-12-2021 13:11-0400 Systolic blood pressure 140 mm[Hg] Dr. Rolan Domingo Work Phone: [facility] Work Phone: 12-12-2021 13:11-0400 Body height 157.[address] Rolan Domingo Work Phone: [facility] Work Phone: 12-12-2021 13:11-0400 Body mass index (BMI) [Ratio] 31.8 kg/m2 Dr. Rolan Domingo Work Phone: [facility] Work Phone: 12-12-2021 13:11-0400 Body weight 79.[address] Rolan Domingo Work Phone: [facility] Work Phone: 12-12-2021 13:11-0400 Diastolic blood pressure 68 mm[Hg] Dr. Rolan Domingo Work Phone: [facility] Work Phone: 12-12-2021 13:11-0400 Heart rate 60 /min Dr. Rolan Domingo Work Phone: [facility] Work Phone: 12-12-2021 13:11-0400 Respiratory rate 16 /min Dr. Rolan Domingo Work Phone: [facility] Work Phone: 12-12-2021 13:11-0400 Systolic blood pressure 140 mm[Hg] Dr. Rolan Domingo Work Phone: [facility] Work Phone: 11-20-2021 13:19-0400 Body mass index (BMI) [Ratio] 31.8 kg/m2 Dr. Rolan Domingo Work Phone: [facility] Work Phone: 11-20-2021 13:19-0400 Body temperature 97.5 [degF] Dr. Rolan Domingo Work Phone: [facility] Work Phone: 11-20-2021 13:19-0400 Body weight 78.[address] Rolan Domingo Work Phone: [facility] Work Phone: 11-20-2021 13:19-0400 Diastolic blood pressure 68 mm[Hg] Dr. Rolan Domingo Work Phone: [facility] Work Phone: 11-20-2021 13:19-0400 Heart rate 77 /min Dr. Rolan Domingo Work Phone: [facility] Work Phone: 11-20-2021 13:19-0400 SaO2% (BldA) [Mass fraction] 97 % Dr. Rolan Domingo Work Phone: [facility] Work Phone: 11-20-2021 13:19-0400 Systolic blood pressure 144 mm[Hg] Dr. Rolan Domingo Work Phone: [facility] Work Phone: 11-20-2021 13:19-0400 Body height 157.[address] Rolan Domingo Work Phone: [facility] Work Phone: 11-20-2021 13:19-0400 Body mass index (BMI) [Ratio] 31.8 kg/m2 Dr. Rolan Domingo Work Phone: [facility] Work Phone: 11-20-2021 13:19-0400 Body temperature 97.5 [degF] Dr. Rolan Domingo Work Phone: [facility] Work Phone: 11-20-2021 13:19-0400 Body weight 78.[address] Rolan Domingo Work Phone: [facility] Work Phone: 11-20-2021 13:19-0400 Diastolic blood pressure 68 mm[Hg] Dr. Rolan Domingo Work Phone: [facility] Work Phone: 11-20-2021 13:19-0400 Heart rate 77 /min Dr. Rolan Domingo Work Phone: [facility] Work Phone: 11-20-2021 13:19-0400 SaO2% (BldA) [Mass fraction] 97 % Dr. Rolan Domingo Work Phone: [facility] Work Phone: 11-20-2021 13:19-0400 Systolic blood pressure 144 mm[Hg] Dr. Rolan Domingo Work Phone: [facility] Work Phone: Encounters Encounter Date Encounter Type Care Provider Facility Start: 04-03-2025 ambulatory Miri Sheriff NP Fac ility:[facility] Start: 03-22-2025 [facility] Start: 03-10-2025 amb[facility] Fac[facility] Start: 12-21-2024 End: 12-21-2024 [facility] Start: 09-03-2024 End: 09-03-2024 ambulatory Keena MILES Facility:[facility] Start: 07-27-2024 End: 07-27-2024 ambulatory [facility] Facility:[facility] Start: 07-27-2024 End: 07-27-2024 ambulatory Sylvester Domingo Facility:[facility] Start: 04-08-2024 End: 04-08-2024 ambulatory Rolan Domingo Facility:[facility] Start: 04-02-2024 End: 04-02-2024 ambulatory Rolan Domingo Facility:[facility] Start: 09-11-2023 End: 09-11-2023 ambulatory ROLAN DOMINGO Facility:[facility] Start: 09-11-2023 End: 09-11-2023 Subsequent hospital visit by physician Xr [facility] Work Phone: Radiology Comment on above: Acute cough [R05.1] Start: 07-28-2023 End: 07-28-[address] Rolan Domingo Work Phone: [facility] [facility] Work Phone: Start: 07-25-2023 End: 07-25-[address] Rolan Domingo Work Phone: [facility] Work Phone: Start: 07-25-2023 End: 07-25-[address] Rolan Domingo Work Phone: [facility] Work Phone: Start: 04-01-2023 End: 04-01-[address] Rolan Domingo Work Phone: [facility] Work Phone: Start: 04-01-2023 End: 04-01-[address] Rolan Domingo Work Phone: [facility] Work Phone: Start: 03-28-2023 End: 03-28-[address] Rolan Domingo Work Phone: [facility] Work Phone: Start: 03-28-2023 End: 03-28-[address] Rolan Domingo Work Phone: [facility] Work Phone: Start: 03-03-2023 End: 03-03-[address] Rolan Domingo Work Phone: [facility] Work Phone: Start: 01-27-2023 End: 01-27-[address] Rolan Domingo Work Phone: [facility] Work Phone: Start: 01-17-2023 End: 01-17-2023 ambulatory ROLAN DOMINGO Facility:[facility] Start: 01-17-2023 End: 01-17-2023 Patient encounter procedure Geneva Melendez PA-C Work Phone: [facility] Comment on above: Bronchitis (Primary Dx) Start: 07-26-2022 End: 07-26-[address] Rolan Domingo Work Phone: [facility] Work Phone: Start: 07-26-2022 End: 07-26-[address] Rolan Domingo Work Phone: [facility] Start: 07-21-2022 End: 07-21-[address] Rolan Domingo Work Phone: [facility] Start: 02-10-2022 End: 02-10-[address] Rolan Domingo Work Phone: [facility] Start: 01-27-2022 End: 01-27-[address] Rolan Domingo Work Phone: [facility] Start: 01-25-2022 End: 01-25-[address] Rolan Domingo Work Phone: [facility] Start: 01-03-2022 Non-patient / Non-visit Dr. Ysabel Domingo Work Phone: [facility] Start: 01-03-2022 End: 01-03-[address] Rolan Domingo Work Phone: [facility] Start: 12-12-2021 End: 12-12-[address] Rolan Domingo Work Phone: [facility] Start: 11-20-2021 End: 11-20-[address] Rolan Domingo Work Phone: [facility] Start: 11-20-2021 End: 11-20-[address] Rolan Domingo Work Phone: [facility] Procedures Date Procedure Procedure Detail Performing Clinician Start: 09-11-2023 Radiologic exam ches t 2 views Geneva Melendez PA-C Work Phone: Start: 04-01-[address] Isreal Domingo Work Phone: Start: 02-10-[address] Isreal Domingo Work Phone: Start: 04-13-2010 Lipid 1996 panel - S jorge or Plasma Xr [place] Work Phone: Start: 03-25-2010 Mammography Geneva Melendez PA-C Work Phone: Start: 03-19-2010 Colonoscopy Geneva Melendez PA-C Work Phone: Plan of Treatment Date Care Activity Detail Author Start: 04-17-2024 Covid-19 Vaccine () Covid-19 Vacc[address] () [facility] Start: 04-17-2024 Influenza vaccination Influenza Vaccine (#1) [facility] Start: 04-17-2023 Influenza vaccination INFLUENZA (Season Ended) [facility] Start: 08-17-2022 DEPRESSION ASSESSMENT DEPRESSION ASSESSMENT [facility] Start: 11-20-2021 Patient referral [facility] Work Phone: Start: 2019 RSV Vaccine (1 - 1-dose 60+ series) RSV Vaccine (1 - 1-dose 60+ series) [facility] Start: 04-13-2015 Lipid panel Lipid Screening [facility] Start: 04-13-2015 [address] [facility] Start: 04-13-2013 DIABETES SCREEN DIABETES SCREEN [facility] Start: 04-13-2013 Diabetes Screening Diabetes Screening [facility] Start: 03-25-[address] [facility] Start: 03-25-2011 Screening for malignant neoplasm of breast Mammogram Screening [facility] Start: 03-19-[address] [facility] Start: 03-19-2011 COLORECTAL CANCER SCREENING COLORECTAL CANCER SCREENING [facility] Start: 03-19-2011 Screening for malignant neoplasm of colon [facility] Start: 12-15-[address] [facility] Start: 12-18-2009 Influenza vaccination LUNG CANCER SCREENING [facility] Start: 12-18-2009 Screening for malignant neoplasm of lung Lung Cancer Screening [facility] Start: 12-18-2009 SHINGRIX VACCINE (1 of 2) SHINGRIX VACCINE (1 of 2) [facility] Start: 12-18-2004 COLOGUARD (FIT-DNA) COLOGUARD (FIT-DNA) [facility] Start: 12-18-[address] COL[address] [facility] Start: 12-18-2004 FECAL OCCULT BLOOD FECAL OCCULT BLOOD [facility] Start: 12-18-2004 Screening for malignant neoplasm of colon [facility] Start: 12-18-[address] [facility] Start: 12-18-1977 Anxiety Screening Anxiety Screening [facility] Start: 12-18-1977 Depression Screening Depression Screening [facility] Start: 12-18-1977 HEPATITIS C SCREENING HEPATITIS C SCREENING [facility] Start: 12-18-1977 Hepatitis C screening Hepatitis C Screening [facility] Start: 12-18-1977 HIV SCREENING HIV SCREENING [facility] Start: 12-18-1977 HIV screening HIV Screening [facility] Start: 12-18-1965 PNEUMOCOCCAL (1 - PCV) PNEUMOCOCCAL (1 - PCV) [facility] Start: 12-18-1965 Pneumococcal vaccination Pneumococcal Vaccine (1 of 2 - PCV) [facility] Start: 06-20-1960 COVID-19 VACCINE (#1) COVID-19 VACCINE (#1) [facility] Blood chemistry [facility] CBC W Auto Different ial panel - Blood [facility] Hemoglobin A1c/Hemoglobin.total in Blood [facility] Patient referral [facility] Work Phone: Immunizations Immunization Date Immunization Notes Care Provider Fa cility 06-06-2009 influenza virus vaccine, unspecified formulation Geneva Melendez PA-C Work Phone: [facility] Work Phone: 12-15-2000 diphtheria and tetan us toxoids, adsorbed for pediatric use Geneva Melendez PA-C Work Phone: [facility] Work Phone: Payers Date Payer Category Payer Medicare [id number] 2023 Self-pay [id number] 2005 [employer] ( and others) [id number] 2005 Unknown [facility] [id number] 2005-Present [phone] [address] [place] [address] Indemnity [id number] [employer] ( and others) [id number] Unknown [id number] Unknown [id number] Unknown [id number] Unknown [id number] Unknown [id number] Unknown [id number] Unknown [id number] Unknown [id number] Unknown [id number] Social History Date Type Detail Facility Start: 11-20-2021 End: 07-28-2023 Tobacco smoking status WAIS Unknown if ever smoked [facility] Start: 1960 Sex Assigned At Female W [facility] Start: 05-16-2013 Tobacco smoking stat RUSTIS Smokes tobacco daily [facility] Work Phone: History of tobacco use Cigarette Smoker [facility] Work Phone: Start: 05-16-2013 End: 07-22-2020 Cigarettes smoked current (pack per day) - Reported 1 [facility] Start: 05-16-2013 Tobacco use and exposure Smokeless tobacco non-user [facility] Work Phone: Start: 01-17-2023 End: 09-11-2023 Alcohol intake Current drinker of alcohol (finding) [facility] Start: 06-08-2013 Alcohol Comment 1 drink per month Cl [facility] Start: 1960 Sex Assigned At Not on file C [facility] Start: 07-22-2020 End: 09-11-[address] [facility] National Score (1-10 0), lower number is lower risk Not on file [facility] Clinical Notes 01-17-2023 to 09-11-2023 Eva Bowen RT(R) - 09/11/2023 8:30 AM Finesse Melendez PA-C - 01/17/2023 9:08 AM EDT Note Date & Type Note Facility 09-11-2023 Note HNO ID: [id number] Author: GENEVA MELENDEZ PA-C Service: ? Author Type: Physician Air Traffic Control Supervisor Type: Progress Notes Filed: 09/11/2023 08:54 Note Text: This note was created using [employer]. Subjective Renzo Law is a 62 year old female. HPI Presents with cough, shortness of breath, nasal congestion for a day and a half. No fever. No chest pain. No vomiting or diarrhea. No home COVID test done. She states lots of people around her have been sick. recently had GI symptoms. She does not have any of these. She is a smoker about a pack a day. Denies history of asthma or COPD. Review of Systems Constitutional: Negative. HENT: Positive for congestion. Negative for ear pain, sinus pressure and sinus pain. Respiratory: Positive for cough, shortness of breath and wheezing. Cardiovascular: Negative. Gastrointestinal: Negative. Genitourinary: Negative. Musculoskeletal: Negative. All other systems reviewed and are negative. PAST MEDICAL HISTORY Diagnosis Date Carpal tunnel syndrome 04/18/2010 RIGHT Other and unspecified disc disorder of lumbar region Current Outpatient Medications Medication Sig Dispense Refill ergocalciferol, vitamin D2, (VITAMIN D2 ORAL) Take by mouth. Cyanocobalamin (VITAMIN B-12) 250 mcg tab Take by mouth. fexofenadine hcl(DAY 180 MG TAB) Take one(1) tablet daily. 30 12 ascorbic acid (VITAMIN C) 500 mg ORAL Tab Take one(1) tablet daily. 0 predniSONE (DELTASONE) 20 mg tablet Take 2 tablets by mouth once daily for 5 days. 10 tablet 0 benzonatate (TESSALON PERLES) 100 mg capsule Take 2 capsules by mouth three times a day as needed. 30 capsule 0 albuterol HFA (PROAIR HFA) 90 mcg/actuation inhaler Inhale 2 Puffs as instructed every 6 hours as needed. 1 Each 0 varenicline tartrate (CHANTIX ORAL) Take by mouth. (Patient not taking: Reported on 01/17/2023) cyclobenzaprine (FLEXERIL) 10 mg tablet Take 1 tablet by mouth three times daily as needed for Muscle Spasm. (Patient not taking: No sig reported) 21 tablet 0 OTC PRODUCT Flash fighter - takes for menopause. Takes 3 tablets at evening meal (Patient not taking: Reported on 01/17/2023) 0 naproxen sodium(ALEVE 220 MG TAB) takes 2 tablets twice daily as needed for back pain 0 Multivitamin (DAILY MULTIPLE) ORAL Tab Take one(1) tablet daily. (Patient not taking: Reported on 01/17/2023) 0 No current facility-administered medications for this visit. PAST SURGICAL HISTORY Procedure Laterality Date APPENDECTOMY NEUROPLASTY AND/TRANSPOS MEDIAN NRV CARPAL TUNNE 03/23/07 LEFT NEUROPLASTY AND/TRANSPOS MEDIAN NRV CARPAL TUNNE 04/18/2010 RIGHT PAST SURGICAL HISTORY OF uterus PAST SURGICAL HISTORY OF 2010? trigger finger right pinky TOTAL ABDOMINAL HYSTERECT W/WO RMVL TUBE OVARY Hysterectomy, MILADIS FAMILY HISTORY Problem Relation Age of Onset Heart Mother has pacemaker other (Other [Other]) Father unknown Social History Tobacco Use Smoking status: Every Day Packs/day: 1.00 Years: 20.00 Additional pack years: 0.00 Total pack years: 20.00 Types: Cigarettes Smokeless tobacco: Never Substance Use Topics Alcohol use: Yes Comment: 1 drink per month Drug use: No Objective BP 119/74 Pulse 77 Temp 36.6 ?C (97.9 ?F) Resp 22 Wt 71.7 kg (158 lb) SpO2 96% Physical Exam Vitals reviewed. Constitutional: Appearance: Normal appearance. HENT: Head: Normocephalic and atraumatic. Right Ear: Tympanic membrane, ear canal and external ear normal. Left Ear: Tympanic membrane, ear canal and external ear normal. Nose: Congestion present. Mouth/Throat: Mouth: Mucous membranes are moist. Pharynx: Oropharynx is clear. Cardiovascular: Rate and Rhythm: Normal rate and regular rhythm. Heart sounds: Normal heart sounds. Pulmonary: Effort: Pulmonary effort is normal. Breath sounds: Normal breath sounds. Musculoskeletal: Cervical back: Neck supple. Skin: General: Skin is warm and dry. Neurological: Mental Status: She is alert. Assessment and Plan ASSESSMENT/PLAN: 1. Viral URI with cough - ICD9: 465.9, ICD10: J06.9 - Discussed viral etiology and rationale for treatment. - Symptomatic treatment with prn analgesia - Supportive care with fluids and rest - Follow up in 3-5 days if symptoms persist or sooner if worsening of symptoms -Chest x-ray is clear. Patient declined COVID testing. Prednisone, tessalon and albuterol MDI rx. Discussed red flags to be seen again. Patient agreeable. - XR CHEST 2V FRONTAL/LAT Geneva Melendez PA-C [facility] 09-11-2023 Note HNO ID: [id number] Author: EVA BOWEN RT(Michael) Service: Radiology Author Type: Technologist Type: Progress Notes Filed: 09/11/2023 08:31 Note Text: Radiology Service Progress Note PATIENT NAME: Renzo Law DATE OF SERVICE: September 11, 2023 TIME: 8:22 AM PATIENT IDENTITY VERIFICATION COMPLETED USING TWO (2) IDENTIFIERS: Name and Date of confirmed by patient verbally. FALL SCREENING: Has the patient had 2 falls in the last year or 1 fall with injury or currently using an Ambulatory Assistive Device (Walker, Cane, Wheelchair, Crutches, etc.)? No PATIENT GENDER DATA: Female. status: : No status: NO. PATIENT RELEVANT IMPLANT DATA REVIEWED: Yes PATIENT PRESENTS WITH AN IMPLANTABLE OR ATTACHED VENUE ATTENDANT: No RADIOLOGY DEPARTMENT: General X-ray: Exam(s) Completed: Chest X-Ray PERIPHERAL IV DATA: Not applicable SIGNED BY: RT Fish(R) September 11, 2023 8:22 AM [facility] 09-11-2023 History of Present illness Narrative Radiology Service Progress Note PATIENT NAME: Renzo Law DATE OF SERVICE: September 11, 2023 TIME: 8:22 AM PATIENT IDENTITY VERIFICATION COMPLETED USING TWO (2) IDENTIFIERS: Name and Date of confirmed by patient verbally. FALL SCREENING: Has the patient had 2 falls in the last year or 1 fall with injury or currently using an Ambulatory Assistive Device (Walker, Cane, Wheelchair, Crutches, etc.)? No PATIENT GENDER DATA: Female. status: : No status: NO. PATIENT RELEVANT IMPLANT DATA REVIEWED: Yes PATIENT PRESENTS WITH AN IMPLANTABLE OR ATTACHED VENUE ATTENDANT: No RADIOLOGY DEPARTMENT: General X-ray: Exam(s) Completed: Chest X-Ray PERIPHERAL IV DATA: Not applicable SIGNED BY: RT Fish(R) September 11, 2023 8:22 AM documented in this encounter [facility] 01-17-2023 Note HNO ID: [id number] Author: Geneva Melendez PA-C Service: ? Author Type: Physician Air Traffic Control Supervisor Type: Progress Notes Filed: 01/17/2023 9:10 AM Note Text: This note was created using [employer]. Subjective Renzo Law is a 62 year old female. HPI Patient presents with a chief complaint of cough, congestion over the past week. She has had some itchy eyes initially. She is on fexofenadine daily. She also took some Benadryl and tried some Sudafed. Was not helping. She does have seasonal allergies this time of year. No fever. She states the cough has kept her up at night. She is a smoker. No diarrhea or vomiting. After coughing fit she feels a little short of breath but otherwise no shortness of breath. No chest pain. Cough has been productive. Review of Systems Constitutional: Negative for fever. HENT: Positive for congestion and rhinorrhea. Negative for ear pain and sore throat. Respiratory: Positive for cough, shortness of breath and wheezing. Negative for chest tightness. Cardiovascular: Negative. Gastrointestinal: Negative. Genitourinary: Negative. Musculoskeletal: Negative. All other systems reviewed and are negative. PAST MEDICAL HISTORY Diagnosis Date Carpal tunnel syndrome 04/18/2010 RIGHT Other and unspecified disc disorder of lumbar region Current Outpatient Medications Medication Sig Dispense Refill ergocalciferol, vitamin D2, (VITAMIN D2 ORAL) Take by mouth. Cyanocobalamin (VITAMIN B-12) 250 mcg tab Take by mouth. albuterol HFA (PROAIR HFA) 90 mcg/actuation inhaler Inhale 2 Puffs as instructed every 4 hours as needed. 1 Inhaler 1 fexofenadine hcl(DAY 180 MG TAB) Take one(1) tablet daily. 30 12 naproxen sodium(ALEVE 220 MG TAB) takes 2 tablets twice daily as needed for back pain 0 ascorbic acid (VITAMIN C) 500 mg ORAL Tab Take one(1) tablet daily. 0 albuterol HFA (PROAIR HFA) 90 mcg/actuation inhaler Inhale 2 Puffs as instructed every 6 hours as needed. 1 Each 0 predniSONE (DELTASONE) 20 mg tablet Take 2 tablets by mouth once daily for 5 days. 10 tablet 0 benzonatate (TESSALON PERLES) 100 mg capsule Take 2 capsules by mouth three times daily as needed. 30 capsule 0 doxycycline (VIBRA-TABS) 100 mg tablet Take 1 tablet by mouth twice daily for 7 days. 14 tablet 0 varenicline tartrate (CHANTIX ORAL) Take by mouth. (Patient not taking: Reported on 01/17/2023) benzonatate (TESSALON PERLE) 100 mg capsule Take 1-2 capsules by mouth three times daily as needed. (Patient not taking: No sig reported) 30 capsule 0 albuterol HFA (VENTOLIN HFA) 90 mcg/actuation inhaler Inhale 2 Puffs as instructed every 4 hours as needed for Wheezing/Shortness of Breath. (Patient not taking: No sig reported) 1 Inhaler 0 cyclobenzaprine (FLEXERIL) 10 mg tablet Take 1 tablet by mouth three times daily as needed for Muscle Spasm. (Patient not taking: No sig reported) 21 tablet 0 Benzonatate (TESSALON) 200 mg capsule Take 200 mg by mouth three times daily as needed for Cough. (Patient not taking: No sig reported) 40 capsule 0 albuterol 90 mcg/actuation aero Inhale 2 Puffs as instructed every 4 hours as needed (shortness of breath). (Patient not taking: No sig reported) 1 Inhaler 0 OTC PRODUCT Flash fighter - takes for menopause. Takes 3 tablets at evening meal (Patient not taking: Reported on 01/17/2023) 0 Multivitamin (DAILY MULTIPLE) ORAL Tab Take one(1) tablet daily. (Patient not taking: Reported on 01/17/2023) 0 No current facility-administered medications for this visit. PAST SURGICAL HISTORY Procedure Laterality Date APPENDECTOMY NEUROPLASTY AND/TRANSPOS MEDIAN NRV CARPAL TUNNE 03/23/07 LEFT NEUROPLASTY AND/TRANSPOS MEDIAN NRV CARPAL TUNNE 04/18/2010 RIGHT PAST SURGICAL HISTORY OF uterus PAST SURGICAL HISTORY OF 2010? trigger finger right pinky TOTAL ABDOMINAL HYSTERECT W/WO RMVL TUBE OVARY Hysterectomy, MILADIS FAMILY HISTORY Problem Relation Age of Onset Heart Mother has pacemaker other (Other [Other]) Father unknown Social History Tobacco Use Smoking status: Every Day Packs/day: 1.00 Years: 20.00 Pack years: 20.00 Types: Cigarettes Smokeless tobacco: Never Substance Use Topics Alcohol use: Yes Comment: 1 drink per month Drug use: No Objective BP 126/78 Pulse 83 Temp 36.9 ?C (98.4 ?F) Resp 20 Wt 80.3 kg (177 lb) SpO2 97% BMI 32.57 kg/m? Physical Exam Vitals reviewed. Constitutional: Appearance: Normal appearance. HENT: Head: Normocephalic and atraumatic. Right Ear: Tympanic membrane, ear canal and external ear normal. Left Ear: Tympanic membrane, ear canal and external ear normal. Nose: Congestion present. Mouth/Throat: Mouth: Mucous membranes are moist. Pharynx: Oropharynx is clear. Cardiovascular: Rate and Rhythm: Normal rate and regular rhythm. Heart sounds: Normal heart sounds. Pulmonary: Effort: Pulmonary effort is normal. Breath sounds: Wheezing present. Comments: Mild (more content not included)... [facility] 01-17-2023 History of Present illness Narrative This note was created using Fashiolista. Subjective Renzo Law is a 62 year old female. HPI Patient presents with a chief complaint of cough, congestion over the past week. She has had some itchy eyes initially. She is on fexofenadine daily. She also took some Benadryl and tried some Sudafed. Was not helping. She does have seasonal allergies this time of year. No fever. She states the cough has kept her up at night. She is a smoker. No diarrhea or vomiting. After coughing fit she feels a little short of breath but otherwise no shortness of breath. No chest pain. Cough has been productive. Review of Systems Constitutional: Negative for fever. HENT: Positive for congestion and rhinorrhea. Negative for ear pain and sore throat. Respiratory: Positive for cough, shortness of breath and wheezing. Negative for chest tightness. Cardiovascular: Negative. Gastrointestinal: Negative. Genitourinary: Negative. Musculoskeletal: Negative. All other systems reviewed and are negative. PAST MEDICAL HISTORY Diagnosis Date Carpal tunnel syndrome 04/18/2010 RIGHT Other and unspecified disc disorder of lumbar region Current Outpatient Medications Medication Sig Dispense Refill ergocalciferol, vitamin D2, (VITAMIN D2 ORAL) Take by mouth. Cyanocobalamin (VITAMIN B-12) 250 mcg tab Take by mouth. albuterol HFA (PROAIR HFA) 90 mcg/actuation inhaler Inhale 2 Puffs as instructed every 4 hours as needed. 1 Inhaler 1 fexofenadine hcl(DAY 180 MG TAB) Take one(1) tablet daily. 30 12 naproxen sodium(ALEVE 220 MG TAB) takes 2 tablets twice daily as needed for back pain 0 ascorbic acid (VITAMIN C) 500 mg ORAL Tab Take one(1) tablet daily. 0 albuterol HFA (PROAIR HFA) 90 mcg/actuation inhaler Inhale 2 Puffs as instructed every 6 hours as needed. 1 Each 0 predniSONE (DELTASONE) 20 mg tablet Take 2 tablets by mouth once daily for 5 days. 10 tablet 0 benzonatate (TESSALON PERLES) 100 mg capsule Take 2 capsules by mouth three times daily as needed. 30 capsule 0 doxycycline (VIBRA-TABS) 100 mg tablet Take 1 tablet by mouth twice daily for 7 days. 14 tablet 0 varenicline tartrate (CHANTIX ORAL) Take by mouth. (Patient not taking: Reported on 01/17/2023) benzonatate (TESSALON PERLE) 100 mg capsule Take 1-2 capsules by mouth three times daily as needed. (Patient not taking: No sig reported) 30 capsule 0 albuterol HFA (VENTOLIN HFA) 90 mcg/actuation inhaler Inhale 2 Puffs as instructed every 4 hours as needed for Wheezing/Shortness of Breath. (Patient not taking: No sig reported) 1 Inhaler 0 cyclobenzaprine (FLEXERIL) 10 mg tablet Take 1 tablet by mouth three times daily as needed for Muscle Spasm. (Patient not taking: No sig reported) 21 tablet 0 Benzonatate (TESSALON) 200 mg capsule Take 200 mg by mouth three times daily as needed for Cough. (Patient not taking: No sig reported) 40 capsule 0 albuterol 90 mcg/actuation aero Inhale 2 Puffs as instructed every 4 hours as needed (shortness of breath). (Patient not taking: No sig reported) 1 Inhaler 0 OTC PRODUCT Flash fighter - takes for menopause. Takes 3 tablets at evening meal (Patient not taking: Reported on 01/17/2023) 0 Multivitamin (DAILY MULTIPLE) ORAL Tab Take one(1) tablet daily. (Patient not taking: Reported on 01/17/2023) 0 No current facility-administered medications for this visit. PAST SURGICAL HISTORY Procedure Laterality Date APPENDECTOMY NEUROPLASTY &/TRANSPOS MEDIAN NRV CARPAL TUNNE 03/23/07 LEFT NEUROPLASTY &/TRANSPOS MEDIAN NRV CARPAL TUNNE 04/18/2010 RIGHT PAST SURGICAL HISTORY OF uterus PAST SURGICAL HISTORY OF 2010? trigger finger right pinky TOTAL ABDOMINAL HYSTERECT W/WO RMVL TUBE OVARY Hysterectomy, MILADIS FAMILY HISTORY Problem Relation Age of Onset Heart Mother has pacemaker other (Other [Other]) Father unknown Social History Tobacco Use Smoking status: Every Day Packs/day: 1.00 Years: 20.00 Pack years: 20.00 Types: Cigarettes Smokeless tobacco: Never Substance Use Topics Alcohol use: Yes Comment: 1 drink per month Drug use: No Objective BP 126/78 Pulse 83 Temp 36.9 C (98.4 F) Resp 20 Wt 80.3 kg (177 lb) SpO2 97% BMI 32.57 kg/m Physical Exam Vitals reviewed. Constitutional: Appearance: Normal appearance. HENT: Head: Normocephalic and atraumatic. Right Ear: Tympanic membrane, ear canal and external ear normal. Left Ear: Tympanic membrane, ear canal and external ear normal. Nose: Congestion present. Mouth/Throat: Mouth: Mucous membranes are moist. Pharynx: Oropharynx is clear. Cardiovascular: Rate and Rhythm: Normal rate and regular rhythm. Heart sounds: Normal heart sounds. Pulmonary: Effort: Pulmonary effort is normal. Breath sounds: Wheezing present. Comments: Mild expiratory wheeze in lower lung mejía. Musculoskeletal: Cervical back: Neck supple. Skin: General: Skin is warm and dry. Neurological: General: No focal deficit present. Mental Status: She is alert. Assessment and Plan ASSESSMENT/PLAN: 1. Bronchitis - ICD9: 490, ICD10: J40 We will treat with Tessalon, prednisone, albuterol inhaler and doxycycline. Continue fexofenadine. Follow-up with PCP if not improving over the next week. Patient agreeable. Geneva Melendez PA-C documented in this encounter [facility] Evaluation note Diagnosis Onset Date Hypertension [facility] Work Phone: Evaluation note* Diagnosis Onset Date Resolution Status Abnormal EKG acute Essential hypertension acute Leg edema acute [facility] Work Phone: Evaluation note* Diagnosis Onset Date Resolution Status Abnormal EKG acute Essential hypertension acute Leg edema acute Essential hypertension acute Leg edema acute [facility] Work Phone: Evaluation note* Diagnosis Onset Date Resolution Status Edema noneactive Abnormal EKG acute Essential hypertension acute Leg edema acute Essential hypertension acute Leg edema acute [facility] Work Phone: Evaluation note* Diagnosis Onset Date Resolution Status Essential hypertension acute Leg edema acute [facility] Work Phone: Evaluation note* Diagnosis Bronchitis- Primary Bronchitis, not specified as acute or chronic [facility] Diagnosis Onset Date Resolution Status Essential hypertension acute Hyperlipidemia acute Morbid (severe) obesity due to excess calories chronic MIRANDA (obstructive sleep apnea) chronic Smoking greater than 40 pack years chronic [facility] Work Phone: Evaluation note* Diagnosis Acute cough documented in this encounter [facility] note* Diagnosis Onset Date Resolution Status Borderline type 2 diabetes mellitus acute Essential hypertension acute Hyperlipidemia acute [facility] Work Phone: [facility] Work Phone: [facility] Work Phone[facility] Work Phone[facility] Work Phone: Chief Complaint and Reason for Visit Chief Complaint Leg swelling Reason for Visit Hypertension Chief Complaint Leg swelling ABN EKG/REF. MCGORON HTN, ABN EKG, BLE EDEMA Reason for Visit Abnormal EKG Essential hypertension Leg edema Chief Complaint Leg swelling ABN EKG/REF. [place] HTN, ABN EKG, BLE EDEMA E-ORDER 6 wk fu Reason for Visit Abnormal EKG Essential hypertension Leg edema Essential hypertension Leg edema Chief Complaint Leg swelling ABN EKG/REF. [place] HTN, ABN EKG, BLE EDEMA E-ORDER 6 wk fu Nicotine dependence, cigarettes, uncomplicated Reason for Visit Edema Abnormal EKG Essential hypertension Leg edema Essential hypertension Leg edema Chief Complaint 6 M FU EORDER Reason for Visit Essential hypertensi on Leg edema Chief Complaint 6 M FU 1 Y FU NICOTINE DEPENDENCE Reason for Visit Essential hypertensi on Hyperlipidemia Morbid (severe) obesity due to excess calories MIRANDA (obstructive sleep apnea) Smoking greater than 40 pack years Chief Complaint NICOTINE DEPENDENCE eorders 6 M FU Reason for Visit Borderline type 2 di abetes mellitus Essential hypertension Hyperlipidemia Family History No Family History Records Found Relationship Condition Age at Onset Recorded Date/T nate mother Hypertension Unknown Cardiac disease Unknown Presence of cardiac pacemaker Unknown Summary Purpose Advance Directives No Advanced Directives Records FoundNo Advanced Directives Records Found Additional Source Comments Goals (unrecognized section and content) Goals may be documented in a n alternate sectionGoals may be documented in an alternate sectionGoals may be documented in an alternate sectionGoals may be documented in an alternate sectionGoals may be documented in an alternate sectionGoals may be documented in an alternate sectionGoals may be documented in an alternate sectionGoals may be documented in an alternate section Source Comments (unrecognize d section and content) In the event this informatio n is protected by the Federal Confidentiality of Alcohol and Drug Abuse Patient Records regulations: The Federal rules restrict any use of the information to criminally investigate or prosecute any alcohol or drug abuse patient.[facility] the event this information is protected by the Federal Confidentiality of Alcohol and Drug Abuse Patient Records regulations: The Federal rules restrict any use of the information to criminally investigate or prosecute any alcohol or drug abuse patient.[facility] Reason for Visit (unrecogniz ed section and content) Reason Comments Allergies Started Nasim, got worse, itchy eyes, runny nose, coughing, sneezing Care Teams (unrecognized sec tion and content) Team Status: Active Member Role Status Dates No Primary Care Physician Family Provider Active Dr. Rolan Domingo MD Primary Care Provider Active Team Status: Inactive Member Role Status Dates Dr. Rolan Domingo MD Primary Care Provider, Refer ring Provider Active Miri Sehriff NODULIZER, NODULIZER-C Attending Provider Active Team Status: Inactive Member Role Status Dates Dr. Rolan Domingo MD Primary Care Provider, Refer ring Provider Active Loly Cervantes NODULIZER, NODULIZER-C Attending Provider Active Team Status: Active Member Role Status Dates Dr. Rolan Domingo MD Primary Care Provider Active Miri Sheriff NODULIZER, NODULIZER-C Attending Provider, Referrin g Provider Active Team Status: Inactive Member Role Status Dates Dr. Rolan Domingo MD Primary Care Provider Active Loly Cervantes NP, NODULIZER-C Attending Provider, Referring P enriqueta Active Team Status: Inactive Member Role Status Dates Dr. 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 Rolan Domingo MD Primary Care Provider, Refer ring Provider Active Stan Sheikh NODULIZER, NODULIZER-C Attending Provider Active INFORMATION SOURCE (unrecogn ized section and content) DATE CREATED AUTHOR 09/12/2023 [facility] DATE CREATED AUTHOR AUTHOR'S ORGANIZ ATION 03/16/2025 [facility] FOR RECORDS PERTAINING TO PATIENTS WHO ARE OR HAVE BEEN ENROLLED IN A CHEMICAL DEPENDENCY/SUBSTANCEABUSE PROGRAM, SOME INFORMATION MAY BE OMITTED. This clinical summary was aggregated from multiple sources. Caution should be exercised in using it in the provision of clinical care. This summary normalizes information from multiple sources, and as a consequence, information in this document may materially change the coding, format and clinical context of patient data. In addition, data may be omitted in some cases. CLINICAL DECISIONS SHOULD BE BASED ON THE PRIMARY CLINICAL RECORDS. [facility] [employer] [facility]. provides no warranty or guarantee of the accuracy or completeness of information in this document.
--- OUTSIDE RECORDS SUMMARY | 2025-03-22 07:18 | XMS RPT_ITS | CCD ---
Author Organization [facility] Care Team Providers Care Purchasing Buyer Name Role Phone Dr. Rolan Domingo Primary [...] Provider Unavailable Primary Care Provider UnavailDr. Rolan cD Primary Care Provider [phone] Dr. Rolan Domingo Referring Provider [phone] Billy HEARD, JORGE LUIS Salcido Attending Provider Sharita HEARD, COPY COORDINATOR-Laine Chery Attending Provider [phone] ROLAN DOMINGO Primary Care Unavailable GENEVA MELENDEZ Referring Unavailable ROLAN DOMINGO Primary Care Unavailable Rolan Domingo MD Primary Care Provider [phone] Dr. Rolan Domingo Primary Care Provider [phone] Dr. Rolan Domingo Referring Provider [phone] Kori COPY COORDINATOR, COPY COORDINATORIvett Ruffin Attending Provider [phone] Keena Francisco Attending Unavail able Keena Francisco Referring Unavail able Oleghe, Efewongbe Primary Care Unavailable Oleghe, Efewongbe Primary Care Unavailable Raedenis HICKS, Marybeth Attending Unavailable Rae AIDENC, Marybeth Referring Unavailable Sharita COPY COORDINATOR, Miri Referring Unavailable Oleghe, Efewongbe Primary Care Unavailable Sharita COPY COORDINATOR, Miri Attending Unavailable Oleghe, Efewongbe Primary Care Unavailable Rae VSC, Marybeth Attending Unavailable Rae FABIOLA, Marybeth Referring Unavailable Oleghe, Efewongbe Primary Care Unavailable Oleghe, Efewongbe Referring Unavailable Sylvester Domingo Attending Unavailable Oleghe, Efewongbe Primary Care Unavailable Oleghe, Efewongbe Referring Unavailable Sharita COPY COORDINATOR, Miri Attending Unavailable Sylvester Domingo Attending Unavailable Sylvester Domingo Referring Unavailable Oleghe, Efewongbe Primary Care Unavailable Oleghe, Efewongbe Primary Care Unavailable Sharita COPY COORDINATOR, Miri Attending Unavailable Sharita HEARD, Miri Referring Unavailable Oleghe, Efewongbe Referring Unavailable Oleghe, Efewongbe Primary Care Unavailable Layla Esposito Attending Unavailable Allergies Allergy Classification Reported Allergen(s) Allergy Type Date of Onset Reaction(s) Facility (11 sources) Codeine; Translations: [CODEINE] Drug Allergy 7 Memory Loss [facility] Work Phone: (4 sources) rosuvastatin Drug Allergy 2 Heart burn [facility] (3 sources) Naproxen; Translations: [NAPROXEN] Drug Allergy 7 GI Upset [facility] Work Phone: (3 sources) Perfumes; Translations: [PERFUMES] Propensity to adverse reactions 7 [facility] Work Phone: (1 source) amLODIPine Drug Allergy 3 Edema [facility] (1 source) amLODIPine Drug Allergy 5 [facility] Repository (1 source) Codeine Drug Allergy 5 [facility] Repository (1 source) rosuvastatin Drug Allergy 5 [facility] Repository Medications Current Medications Medication Drug [...] Drug Class(es) Dates Sig (Normalized) Sig (Original) [id number] 200 actuat albuterol 0.09 mg/actuat metered dose [...] Endocrinology Visit Reporton 12-21-2024 Endocrinology Visit Report [facility] [address] [place] [address] OFFICE VISIT Date of Service: 12/21/24 MR#: [id number] Acct: [id number] Name: ANIRENZO PRADO Rep #: [id number] : 1960 Provider: JORGE LUIS augustin Age/Sex: 64/F [place] [facility] Status: Signed Intake Vital Signs 07/27/24 10:25 [...] Reasons: Diabetes Chief Complaint: establish care- diabetes Last Trimmer Required: No Accompanied by: Self Is patient [...] 12/21/24 0 12/21/24 Rx lancets 30 gauge (Henrietta Chek #100 ea 12/21/24 12/21/24 Rx Lancets) [...] any a (more content not included)... Normal [facility] Basic Metabolic Profile (BMP )on 09-03-2024 BUN/CRE 18.2 RATIO Normal 10-20 [facility] Comment on above: Performed By: #### L 501.9985, L500.2500 #### [facility] [address] [place], [address] CA,Total 9.4 mg/dL Normal 8.5-10.1 [facility] Comment on above: Performed By: #### L 501.9985, L500.2500 #### [facility] [address] [place], [address] Chloride [Moles/Vol] 103 mmol/L Normal 98-107 [facility] Comment on above: Performed By: #### L 501.9985, L500.2500 #### [facility] [address] [place], [address] CO2 [Moles/Vol] 30.0 mmol/L Normal 21.0-32.0 [facility] Comment on above: Performed By: #### L 501.9985, L500.2500 #### [facility] [address] [place], [address] Creatinine [Mass/Vol] 1.10 mg/dL High 0.55-1.02 [facility] Comment on above: Result Comment: The validity of the calculated GFR GFRAA in patients over 70 years has not been determined. Clinical correlation is essential. Performed By: #### L 501.9985, L500.2500 #### [facility] [address] [place], [address] EST GFR - AA 64 mL/min Normal >60 [facility] Comment on above: Result Comment: Afri can Macanese GFR Calc Performed By: #### L 501.9985, L500.2500 #### [facility] [address] [place], [address] GAP 6 Normal 5-15 [facility] Comment on above: Performed By: #### L 501.9985, L500.2500 #### [facility] [address] [place], [address] GFR/1.73 sq M.predicted among non-blacks MDRD (S/P/Bld) [Vol rate/Area] 53 mL/min/{1.73_m2} Low >60 [facility] Comment on above: Result Comment: Non- GFR Calc Performed By: #### L 501.9985, L500.2500 #### [facility] [address] [place], [address] Glucose [Mass/Vol] 292 mg/dL High 74-106 [facility] Comment on above: Result Comment: Gluc ose result greater than or equal to 200 mg/dL suggests DIABETES MELLITUS per A.D.A. criteria. Performed By: #### L 501.9985, L500.2500 #### [facility] [address] [place], [address] Potassium [Moles/Vol] 3.5 mmol/L Normal 3.5-5.1 [facility] Comment on above: Performed By: #### L 501.9985, L500.2500 #### [facility] [address] [place], [address] Sodium [Moles/Vol] 139 mmol/L Normal 136-145 [facility] Comment on above: Performed By: #### L 501.9985, L500.2500 #### [facility] [address] [place], [address] Urea nitrogen [Mass/Vol] 20 mg/dL High -18 [facility] Comment on above: Performed By: #### L 501.9985, L500.2500 #### [facility] [address] [place], [address] Hemoglobin A1con 09-03-2024 HbA1c (Bld) [Mass fraction] 9.9 % High 3.8-5.6 [facility] Comment on above: Result Comment: Norm al < 5.7 % Prediabetic 5.7 - 6.4 % Diabetic >or= 6.5 % Please note range changes. Performed By: #### L 501.9985, L500.2500 #### [facility] [address] [place], [address] CBC-Complete Blood Cnt No Di ffon 07-27-2024 Erythrocyte distribution width (RBC) [Ratio] 12.3 % Normal 11.6-14.6 [facility] Comment on above: Order Comment: PER Alberto DOMINGO ORDER Performed By: #### L 500.4050, L500.4100, L100.0500, L501.9985 #### [facility] [address] [place], [address] Hematocrit (Bld) [Volume fraction] 45.6 % Normal 37-47 [facility] Comment on above: Order Comment: PER Alberto DOMINGO ORDER Performed By: #### L 500.4050, L500.4100, L100.0500, L501.9985 #### [facility] [address] [place], [address] Hemoglobin (Bld) [Mass/Vol] 15.6 g/dL High 12.0-15.0 [facility] Comment on above: Order Comment: PER P SIM DOMINGO ORDER Performed By: #### L 500.4050, L500.4100, L100.0500, L501.9985 #### [facility] [address] [place], [address] MCH (RBC) [Entitic mass] 29.3 pg Normal 27.0-32.0 [facility] Comment on above: Order Comment: PER Alberto DOMINGO ORDER Performed By: #### L 500.4050, L500.4100, L100.0500, L501.9985 #### [facility] [address] [place], [address] MCHC (RBC) [Mass/Vol] 34.2 g/dL Normal 32-36 [facility] Comment on above: Order Comment: PER P T-ALEXANDER DOMINGO ORDER Performed By: #### L 500.4050, L500.4100, L100.0500, L501.9985 #### [facility] [address] [place], [address] MCV (RBC) [Entitic vol] 85.7 fL Normal 81-99 [facility] Comment on above: Order Comment: PER P SIM DOMINGO ORDER Performed By: #### L 500.4050, L500.4100, L100.0500, L501.9985 #### [facility] [address] [place], [address] Platelet mean volume (Bld) [Entitic vol] 11.4 fL Normal 6.2-12.0 [facility] Comment on above: Order Comment: PER P SIM DOMINGO ORDER Performed By: #### L 500.4050, L500.4100, L100.0500, L501.9985 #### [facility] [address] [place], [address] Platelets (Bld) [#/Vol] 189 10*3/uL Normal 150-450 [facility] Comment on above: Order Comment: PER P T-ALEXANDER DOMINGO ORDER Performed By: #### L 500.4050, L500.4100, L100.0500, L501.9985 #### [facility] [address] [place], [address] RBC (Bld) [#/Vol] 5.32 10*6/uL Normal 4.2-5.4 [facility] Comment on above: Order Comment: PER P T-ALEXANDER DOMINGO ORDER Performed By: #### L 500.4050, L500.4100, L100.0500, L501.9985 #### [facility] [address] [place], [address] RDW SD 38.5 fl Normal 35.1-43.9 [facility] Comment on above: Order Comment: PER P SIM DOMINGO ORDER Performed By: #### L 500.4050, L500.4100, L100.0500, L501.9985 #### [facility] [address] [place], [address] WBC (Bld) [#/Vol] 9.0 10*3/uL Normal 4.4-11.0 [facility] Comment on above: Order Comment: PER P SIM DOMINGO ORDER Performed By: #### L 500.4050, L500.4100, L100.0500, L501.9985 #### [facility] [address] [place], [address] Cardiology Visit Reporton Cardiology Visit Report [facility] [address] [place] [address] OFFICE VISIT Date of Service: 07/27/24 MR#: [id number] Acct: [id number] Name: RENZO LAW Rep #: [id number] : 1960 Provider: Dr. Sylvester rojo MD Age/Sex: 63/F Location: [facility] Status: Signed HPI HPI History of Present [...] air Intake Visit Reasons: 1 Y FU Last Trimmer Required: No Accompanied by: Self Is patient [...] dizziness, light (more content not included)... Normal [facility] Comprehensive Metabolic Prof marioon 07-27-2024 Albumin [Mass/Vol] 4.0 g/dL Normal 3.2-5.0 [facility] Comment on above: Order Comment: PER Alberto DOMINGO ORDER Performed By: #### L 500.4050, L500.4100, L100.0500, L501.9985 #### [facility] [address] [place], [address] Albumin/Globulin [Mass ratio] 1.2 {ratio} Normal 0.9-2.4 [facility] Comment on above: Order Comment: PER Alberto DOMINGO ORDER Performed By: #### L 500.4050, L500.4100, L100.0500, L501.9985 #### [facility] [address] [place], [address] ALK P 117 U/L Normal 45-117 [facility] Comment on above: Order Comment: PER Alberto DOMINGO ORDER Performed By: #### L 500.4050, L500.4100, L100.0500, L501.9985 #### [facility] [address] [place], [address] ALT [Catalytic activity/Vol] 30 U/L Normal 13-56 [facility] Comment on above: Order Comment: PER Alberto DOMINGO ORDER Performed By: #### L 500.4050, L500.4100, L100.0500, L501.9985 #### [facility] [address] [place], [address] AST [Catalytic activity/Vol] 17 U/L Normal 15-37 [facility] Comment on above: Order Comment: PER Alberto DOMINGO ORDER Performed By: #### L 500.4050, L500.4100, L100.0500, L501.9985 #### [facility] [address] [place], [address] Bilirubin [Mass/Vol] 0.50 mg/dL Normal 0.20-1.00 [facility] Comment on above: Order Comment: PER Alberto DOMINGO ORDER Result Comment: For patients on eltrombopag therapy, use of Dimension [place] TBIL is not recommended. Performed By: #### L 500.4050, L500.4100, L100.0500, L501.9985 #### [facility] [address] [place], [address] BUN/CRE 17.5 RATIO Normal 10-20 [facility] Comment on above: Order Comment: PER Alberto DOMINGO ORDER Performed By: #### L 500.4050, L500.4100, L100.0500, L501.9985 #### [facility] [address] [place], [address] CA,Total 9.4 mg/dL Normal 8.5-10.1 [facility] Comment on above: Order Comment: PER Alberto DOMINGO ORDER Performed By: #### L 500.4050, L500.4100, L100.0500, L501.9985 #### [facility] [address] [place], [address] Chloride [Moles/Vol] 98 mmol/L Normal 98-107 [facility] Comment on above: Order Comment: PER Alberto DOMINGO ORDER Performed By: #### L 500.4050, L500.4100, L100.0500, L501.9985 #### [facility] [address] [place], [address] CO2 [Moles/Vol] 29.0 mmol/L Normal 21.0-32.0 [facility] Comment on above: Order Comment: PER Alberto DOMINGO ORDER Performed By: #### L 500.4050, L500.4100, L100.0500, L501.9985 #### [facility] [address] [place], [address] Creatinine [Mass/Vol] 1.03 mg/dL High 0.55-1.02 [facility] Comment on above: Order Comment: PER Alberto DOMINGO ORDER Result Comment: The validity of the calculated GFR GFRAA in patients over 70 years has not been determined. Clinical correlation is essential. Performed By: #### L 500.4050, L500.4100, L100.0500, L501.9985 #### [facility] [address] [place], [address] EST GFR - AA 69 mL/min Normal >60 [facility] Comment on above: Order Comment: PER Alberto DOMINGO ORDER Result Comment: Afri can Macanese GFR Calc Performed By: #### L 500.4050, L500.4100, L100.0500, L501.9985 #### [facility] [address] [place], [address] GAP 6 Normal 5-15 [facility] Comment on above: Order Comment: PER Alberto DOMINGO ORDER Performed By: #### L 500.4050, L500.4100, L100.0500, L501.9985 #### [facility] [address] [place], [address] GFR/1.73 sq M.predicted among non-blacks MDRD (S/P/Bld) [Vol rate/Area] 57 mL/min/{1.73_m2} Low >60 [facility] Comment on above: Order Comment: PER Alberto DOMINGO ORDER Result Comment: Non- GFR Calc Performed By: #### L 500.4050, L500.4100, L100.0500, L501.9985 #### [facility] [address] [place], [address] Globulin (S) [Mass/Vol] 3.3 g/dL Normal 2.2-4.2 [facility] Comment on above: Order Comment: PER Alberto DOMINGO ORDER Performed By: #### L 500.4050, L500.4100, L100.0500, L501.9985 #### [facility] [address] [place], [address] Glucose [Mass/Vol] 368 mg/dL High 74-106 [facility] Comment on above: Order Comment: PER Alberto DOMINGO ORDER Result Comment: Gluc ose result greater than or equal to 200 mg/dL suggests DIABETES MELLITUS per A.D.A. criteria. Performed By: #### L 500.4050, L500.4100, L100.0500, L501.9985 #### [facility] [address] [place], [address] Potassium [Moles/Vol] 4.1 mmol/L Normal 3.5-5.1 [facility] Comment on above: Order Comment: PER Alberto DOMINGO ORDER Performed By: #### L 500.4050, L500.4100, L100.0500, L501.9985 #### [facility] [address] [place], [address] Sodium [Moles/Vol] 133 mmol/L Low 136-145 [facility] Comment on above: Order Comment: PER Alberto DOMINGO ORDER Performed By: #### L 500.4050, L500.4100, L100.0500, L501.9985 #### [facility] [address] [place], [address] T PROT 7.3 g/dL Normal 6.4-8.2 [facility] Comment on above: Order Comment: PER Alberto DOMINGO ORDER Performed By: #### L 500.4050, L500.4100, L100.0500, L501.9985 #### [facility] [address] [place], [address] Urea nitrogen [Mass/Vol] 18 mg/dL Normal 7-18 [facility] Comment on above: Order Comment: PER Alberto DOMINGO ORDER Performed By: #### L 500.4050, L500.4100, L100.0500, L501.9985 #### [facility] [address] [place], [address] Hemoglobin A1con 07-27-2024 HbA1c (Bld) [Mass fraction] 10.4 % High 3.8-5.6 [facility] Comment on above: Order Comment: PER Alberto DOMINGO ORDER Result Comment: Norm al < 5.7 % Prediabetic 5.7 - 6.4 % Diabetic >or= 6.5 % Please note range changes. Performed By: #### L 500.4050, L500.4100, L100.0500, L501.9985 #### [facility] [address] [place], [address] Lipid Profileon 07-27-2024 Cholesterol [Mass/Vol] 211 mg/dL High 200 [facility] Comment on above: Order Comment: PER Alberto DOMINGO ORDER Result Comment: <200 mg/dL Desirable 200-240 mg/dL Borderline >240 mg/dL High Risk Performed By: #### L 500.4050, L500.4100, L100.0500, L501.9985 #### [facility] [address] [place], [address] Cholesterol in HDL [Mass/Vol] 42 mg/dL Normal [facility] Comment on above: Order Comment: PER Alberto DOMINGO ORDER Result Comment: The drugs N-Acetylcysteine and Metamizole may falsely depress this assay. Reference Range HDL <40 mg/dL Low HDL Cholesterol HDL >or= 60 mg/dL High HDL Cholesterol Performed By: #### L 500.4050, L500.4100, L100.0500, L501.9985 #### [facility] [address] [place], [address] LDL TNP Normal 0-130 [facility] Comment on above: Order Comment: PER Alberto DOMINGO ORDER Performed By: #### L 500.4050, L500.4100, L100.0500, L501.9985 #### [facility] [address] [place], [address] Triglyceride [Mass/Vol] 616 mg/dL High [facility] Comment on above: Order Comment: PER [...] #### L 500.4050, L500.4100, L100.0500, L501.9985 #### [facility] [address] [place], [address] VLDL TNP Normal 5-40 [facility] Comment on above: Order Comment: PER P SIM DOMINGO ORDER Performed By: #### L 500.4050, L500.4100, L100.0500, L501.9985 #### [facility] [address] [place], [address] Pulmonary Visit Reporton Pulmonary Visit Report [facility] [place] [address] [place] [address] OFFICE VISIT Date of Service: 04/08/24 MR#: [id number] Acct: [id number] Name: RENZO LAW Rep #: [id number] : 1960 Provider: JORGE LUIS Sheriff Age/Sex: 63/F Location: [facility] Status: Signed Assessment and Plan Assessment and [...] uncomplicated Plan Details Follow Up: 1 Year ([facility]) HPI 1 Y FU Chief Complaint: [...] air Intake Visit Reasons: 1 Y FU Last Trimmer Required: No DME Vendor: [employer] Accompanied by: Self Is patient in pain?: [...] the past year?: No PFSH Medical History (Reviewed 04/08/24 @ 15:32 by [facility] (more content not included)... Normal [facility] Low Dose CT Lung Screeningon 04-02-[address] Lung Screening [facility] Imaging Services [address] [place] [address] Lung Screening MR#: [id number] Acct: [id number] Name: RENZO LAW Rep #: [id number] : 1960 F 63 From: Jak Murillo MD PCP: Dr. Rolan Domingo MD Status: REG CLI Study: Low Dose CT Lung Screening Date of Exam: 04/02 Exam# [id number] Ordering Dr: Miri Sheriff COPY COORDINATOR COPY COORDINATOR-C [id number] STUDY: LOW DOSE CT LUNG CANCER SCREENING [...] JORGE LUIS Sheriff; Dr. Rolan Domingo MD Antichecking Iron Worker: Signed [facility] CNOVon 09-11-2023 CNOV Office Visit (UCWSTR ) -------- RENZO LAW ([id number]) 1960 F Date Time Provider Department 09/11/23 8:00 AM GENEVA MELENDEZ [facility] During your visit today, we recorded the following information about you: Temperature Pulse Respiration Blood pressure 97.9 degrees 77/minute 22/minute 119/74 Weight 71.7 kg Geneva Melendez PA-C 09/11/2023 8:54 AM Signed This note was created using Wheebox[employer]. Subjective Renzo Law is a 62 year [...] NAPROSYN (NAPROXEN) (more content not included)... Normal [facility] XR CHEST 2V FRONTAL/LATon XR CHEST 2V [...] and shoulders. IMPRESSION: No acute radiographic abnormality. Antichecking Iron Worker: JAMARCUS Transcribe Date/Time: Sep 11 2023 8:32A Dictated by : JM GO MD This examination was interpreted and the report reviewed and electronically signed by: JM GO MD on Sep 11 2023 8:33AM EST [id number] Normal [facility] XR Chest PA and Lateralon IMPRESSION: No acute radiographic abnormality. Antichecking Iron Worker: [facility] Transcribe Date/Time: Sep 11 2023 8:32A Dictated [...] spine and shoulders. DIVISION OF RADIOLOGY Provider, [facility] - 09/11/2023 * * *Final Report* [...] shoulders. IMPRESSION IMPRESSION: No acute radiographic abnormality. Antichecking Iron Worker: JAMARCUS Transcribe Date/Time: Sep 11 2023 8:32A Dictated by : JM GO MD This examination was interpreted and the report reviewed and electronically signed by: JM GO MD on Sep 11 2023 8:33AM EST [facility] Radiology Study observation (narrative) [facility] XR Chest PA and LateralOrder ed By: [facility] Provider on 09-11-2023 [facility] Basophil percentageOrdered B y: Loly Cervantes on 07-25-2023 Bilirubin [Mass/Vol] 0.50 mg/dL 0.20-1.00 [facility] Comment on above: For patients on eltr ombopag therapy, use of Dimension [place] TBIL is not recommended. Cholesterol [Mass/Vol] 195 mg/dL <200 [facility] Comment on above: <200 mg/dL Desirable 200-240 mg/dL Borderline >240 mg/dL High Risk Protein [Mass/Vol] 7.3 g/dL 6.4-8.2 [facility] Triglyceride [Mass/Vol] 512 mg/dL <199 [facility] Comment on above: The drugs N-Acetylcy [...] on 07-25-2023 Bilirubin.direct [Mass/Vol] 0.11 mg/dL 0.00-0.30 [facility] Laboratory - Chemistry and C hemistry - challengeOrdered By: Loly Cervantes on 07-25-2023 ALP [Catalytic activity/Vol] 108 U/L 45-117 [facility] [facility] ALT [Catalytic activity/Vol] 30 U/L 13-56 [facility] Globulin (S) [Mass/Vol] 3.4 g/dL 2.2-4.2 [facility] Serum or plasma albumin ladonna urement (mass/volume)Ordered By: Loly Cervantes on 07-25-2023 Albumin [Mass/Vol] 3.9 g/dL 3.2-5.0 [facility] Serum or plasma cholesterol in HDL measurement (mass/volume)Ordered By: Loly Cervantes on 07-25-2023 Cholesterol in HDL [Mass/Vol] 39 mg/dL >40 [facility] Comment on above: The drugs N-Acetylcy steine and Metamizole may falsely depress this assay. Reference Range HDL <40 mg/dL Low HDL Cholesterol HDL >or= 60 mg/dL High HDL Cholesterol Serum or plasma cholesterol in VLDL measurement (mass/volume)Ordered By: Loly Cervantes on 07-25-2023 Cholesterol in VLDL [Mass/Vol] [facility] Comment on above: Test not performed Serum or plasma low density lipoprotein (LDL) cholesterol measurement (mass/volume)Ordered By: Loly Cervantes on 07-25-2023 Cholesterol in LDL [Mass/Vol] [facility] Comment on above: Test not performed Thin prep Papanicolaou smear with manual screeningOrdered By: Loly Cervantes on 07-25-2023 Thin prep Papanicolaou smear with manual screening 16 U/L 15-37 [facility] Basophil percentageOrdered B y: Loly Cervantes on 03-28-2023 Bilirubin [Mass/Vol] 0.40 mg/dL 0.20-1.00 [facility] Comment on above: For patients on eltr ombopag therapy, use of Dimension [place] TBIL is not recommended. Cholesterol [Mass/Vol] 163 mg/dL <200 [facility] Comment on above: <200 mg/dL Desirable 200-240 mg/dL Borderline >240 mg/dL High Risk Protein [Mass/Vol] 7.2 g/dL 6.4-8.2 [facility] Triglyceride [Mass/Vol] 448 mg/dL <199 [facility] Comment on above: The drugs N-Acetylcy [...] on 03-28-2023 Bilirubin.direct [Mass/Vol] 0.12 mg/dL 0.00-0.30 [facility] Laboratory - Chemistry and C hemistry - challengeOrdered By: Loly Cervantes on 03-28-2023 ALP [Catalytic activity/Vol] 94 U/L 45-117 [facility] ALT [Catalytic activity/Vol] 27 U/L 13-56 [facility] Globulin (S) [Mass/Vol] 3.5 g/dL 2.2-4.2 [facility] Serum or plasma albumin ladonna urement (mass/volume)Ordered By: Loly Cervantes on 03-28-2023 Albumin [Mass/Vol] 3.7 g/dL 3.2-5.0 [facility] Serum or plasma cholesterol in HDL measurement (mass/volume)Ordered By: Loly Cervantes on 03-28-2023 Cholesterol in HDL [Mass/Vol] 38 mg/dL >40 [facility] Comment on above: The drugs N-Acetylcy steine and Metamizole may falsely depress this assay. Reference Range HDL <40 mg/dL Low HDL Cholesterol HDL >or= 60 mg/dL High HDL Cholesterol Serum or plasma cholesterol in VLDL measurement (mass/volume)Ordered By: Loly Cervantes on 03-28-2023 Cholesterol in VLDL [Mass/Vol] [facility] Comment on above: Test not performed Serum or plasma low density lipoprotein (LDL) cholesterol measurement (mass/volume)Ordered By: Loly Cervantes on 03-28-2023 Cholesterol in LDL [Mass/Vol] [facility] Comment on above: Test not performed Thin prep Papanicolaou smear with manual screeningOrdered By: Loly Cervantes on 03-28-2023 Thin prep Papanicolaou smear with manual screening 14 U/L 15-37 [facility] CNOVon 01-17-2023 CNOV Office Visit (UCWSTR ) -------- RENZO LAW ([id number]) 1960 F Date Time Provider Department 01/17/23 8:45 AM GENEVA MELENDEZ During your visit today, we recorded the following information about you: Temperature Pulse Respiration Blood pressure 98.4 degrees 83/minute 20/minute 126/78 Weight 80.3 kg Geneva Melendez PA-C 01/17/2023 9:10 AM Signed This note was created using Wheeboxriter. Subjective Renzo Law is a 62 year [...] present. Mouth/Throa (more content not included)... Normal [facility] Basophil percentageon 2021 Bilirubin [Mass/Vol] 0.40 mg/dL 0.20-1.00 [facility] Work Phone: Comment on above: For patients on eltr ombopag therapy, use of Dimension [place] TBIL is not recommended. Cholesterol [Mass/Vol] 232 mg/dL <200 [facility] Work Phone: Comment on above: <200 mg/dL Desirable 200-240 mg/dL Borderline >240 mg/dL High Risk Protein [Mass/Vol] 7.3 g/dL 6.4-8.2 [facility] Work Phone: Triglyceride [Mass/Vol] 748 mg/dL <199 [facility] Work Phone: Comment on above: The [...] bilirubinon 2 Bilirubin.direct [Mass/Vol] 0.11 mg/dL 0.00-0.30 [facility] Work Phone: [phone] Laboratory - Chemistry and C hemistry - challengeon 07-26-2022 ALP [Catalytic activity/Vol] 94 U/L 45-117 [facility] Work Phone: [phone] ALT [Catalytic activity/Vol] 33 U/L 13-56 [facility] Work Phone: [phone] Globulin (S) [Mass/Vol] 3.4 g/dL 2.2-4.2 [facility] Work Phone: [phone] Serum or plasma albumin ladonna urement (mass/volume)on 07-26-2022 Albumin [Mass/Vol] 3.9 g/dL 3.2-5.0 [facility] Work Phone: [phone] Serum or plasma cholesterol in HDL measurement (mass/volume)on 07-26-2022 Cholesterol in HDL [Mass/Vol] 35 mg/dL >40 [facility] Work Phone: Comment on above: The drugs N-Acetylcy steine and Metamizole may falsely depress this assay. Reference Range HDL <40 mg/dL Low HDL Cholesterol HDL >or= 60 mg/dL High HDL Cholesterol Serum or plasma cholesterol in VLDL measurement (mass/volume)on 07-26-2022 Cholesterol in VLDL [Mass/Vol] [facility] Work Phone: Comment on above: Test not performed Serum or plasma low density lipoprotein (LDL) cholesterol measurement (mass/volume)on 07-26-2022 Cholesterol in LDL [Mass/Vol] [facility] Work Phone: Comment on above: Test not performed Thin prep Papanicolaou smear with manual screeningon 07-26-2022 Thin prep Papanicolaou smear with manual screening 18 U/L 15-37 [facility] Work Phone: Basophil percentageon 2021 Chloride [Moles/Vol] 106 mmol/L 98-107 [facility] Work Phone: [phone] Glucose [Mass/Vol] 256 mg/dL 74-106 [facility] Work Phone: Comment on above: Glucose result great er than or equal to 200 mg/dLsuggests DIABETES MELLITUS per A.D.A. criteria. Potassium [Moles/Vol] 3.8 mmol/L 3.5-5.1 [facility] Work Phone: Sodium [Moles/Vol] 138 mmol/L 136-145 [facility] Work Phone: Laboratory - Chemistry and C hemistry - challengeon 01-25-2022 CO2 [Moles/Vol] 27.0 mmol/L 21.0-32.0 [facility] Work Phone: Urea nitrogen/Creatinine [Mass ratio] 15.9 mg/mg 10-20 [facility] Work Phone: No Panel Informationon 01-25 Estimated GFR (MDRD) Amer 67 mL/min >60 [facility] Work Phone: Comment on above: GFR Calc Estimated GFR (MDRD) Non-Af Amer 55 mL/min >60 [facility] Work Phone: Comment on above: Non- GFR Calc Serum or plasma calcium ladonna urement (mass/volume)on 01-25-2022 Calcium [Mass/Vol] 8.7 mg/dL 8.5-10.1 [facility] Work Phone: Serum or plasma creatinine m easurement (mass/volume)on 01-25-2022 Creatinine [Mass/Vol] 1.07 mg/dL 0.55-1.02 [facility] Work Phone: Comment on above: The validity of the calculated GFR & GFRAA in patients over 70 years has not been determined. Clinical correlation is essential. Serum or plasma urea nitroge n measurement (mass/volume)on 01-25-2022 Urea nitrogen [Mass/Vol] 17 mg/dL 7-18 [facility] Work Phone: Thin prep Papanicolaou smear with manual screeningon 01-25-2022 Thin prep Papanicolaou smear with manual screening 5 5-15 [facility] Work Phone: Basophil percentageon 2021 Chloride [Moles/Vol] 105 mmol/L 98-107 [facility] Work Phone: Glucose [Mass/Vol] 216 mg/dL 74-106 [facility] Work Phone: Comment on above: Glucose result great er than or equal to 200 mg/dLsuggests DIABETES MELLITUS per A.D.A. criteria. Potassium [Moles/Vol] 3.8 mmol/L 3.5-5.1 [facility] Work Phone: Sodium [Moles/Vol] 140 mmol/L 136-145 [facility] Work Phone: Laboratory - Chemistry and C hemistry - challengeon 01-03-2022 CO2 [Moles/Vol] 27.0 mmol/L 21.0-32.0 [facility] Work Phone: Urea nitrogen/Creatinine [Mass ratio] 21.9 mg/mg - [facility] Work Phone: No Panel Informationon 01-03 Estimated GFR (MDRD) Amer 68 mL/min >60 [facility] Work Phone: Comment on above: GFR Calc Estimated GFR (MDRD) Non-Af Amer 56 mL/min >60 [facility] Work Phone: Comment on above: Non- GFR Calc Serum or plasma calcium ladonna urement (mass/volume)on 01-03-2022 Calcium [Mass/Vol] 8.8 mg/dL 8.5-10.1 [facility] Work Phone: Serum or plasma creatinine m easurement (mass/volume)on 01-03-2022 Creatinine [Mass/Vol] 1.05 mg/dL 0.55-1.02 [facility] Work Phone: Comment on above: The validity of the calculated GFR & GFRAA in patients over 70 years has not been determined. Clinical correlation is essential. Serum or plasma urea nitroge n measurement (mass/volume)on 01-03-2022 Urea nitrogen [Mass/Vol] 23 mg/dL 7-18 [facility] Work Phone: Thin prep Papanicolaou smear with manual screeningon 01-03-2022 Thin prep Papanicolaou smear with manual screening 8 5-15 [facility] Work Phone: Absolute lymphocyte counton 11-20-2021 Lymphocytes Auto (Unsp spec) [#/Vol] 2.44 10*3/uL 0.83-4.51 [facility] Work Phone: Basophil percentageon 2021 Basophils/100 WBC (Bld) 0.5 % 0-1 [facility] Work Phone: Chloride [Moles/Vol] 109 mmol/L 98-107 [facility] Work Phone: Eosinophils/100 WBC (Bld) 3.2 % 0-5 [facility] Work Phone: Glucose [Mass/Vol] 164 mg/dL 74-106 [facility] Work Phone: Comment on above: Fasting Glucose resu lt greater than or equal to 126 mg/dL suggests DIABETES MELLITUS per A.D.A. criteria. Neutrophils (Bld) [#/Vol] 4.9 10*3/uL 2.0-7.7 [facility] Work Phone: Neutrophils/100 WBC (Bld) 58.9 % 47-70 [facility] Work Phone: Potassium [Moles/Vol] 3.6 mmol/L 3.5-5.1 [facility] Work Phone: Sodium [Moles/Vol] 141 mmol/L 136-145 [facility] Work Phone: WBC (Bld) [#/Vol] 8.4 10*3/uL 4.4-11.0 [facility] Work Phone: Blood erythrocytes count (nu mber/volume)on 11-20-2021 RBC (Bld) [#/Vol] 4.32 10*6/uL 4.2-5.4 [facility] Work Phone: Blood hemoglobin measurement (mass/volume)on 11-20-2021 Hemoglobin (Bld) [Mass/Vol] 12.6 g/dL 12.0-15.0 [facility] Work Phone: Blood lymphocytes/100 leukoc yteson 11-20-2021 Lymphocytes/100 WBC (Bld) 29.2 % 19-41 [facility] Work Phone: Blood monocytes/100 leukocyt eson 11-20-2021 Monocytes/100 WBC (Bld) 7.8 % 0-10 [facility] Work Phone: Blood platelet mean volumeon 11-20-2021 Platelet mean volume (Bld) [Entitic vol] 12.0 fL 6.2-12.0 [facility] Work Phone: Determination of erythrocyte mean corpuscular volume (MCV)on 11-20-2021 MCV (RBC) [Entitic vol] 87.5 fL 81-99 [facility] Work Phone: Hematocrit Auto (Bld) [Volum e fraction]on 11-20-2021 Hematocrit (Bld) [Volume fraction] 37.8 % 37-47 [facility] Work Phone: Laboratory - Chemistry and C hemistry - challengeon 11-20-2021 CO2 [Moles/Vol] 27.0 mmol/L 21.0-32.0 [facility] Work Phone: Free T4 [Mass/Vol] 0.87 ng/dL 0.76-1.46 [facility] Work Phone: Urea nitrogen/Creatinine [Mass ratio] 19.7 mg/mg 10-20 [facility] Work Phone: Laboratory - Hematology and Cell countson 11-20-2021 Erythrocyte distribution width (RBC) [Entitic vol] 40.5 fL 35.1-43.9 [facility] Work Phone: Erythrocyte distribution width (RBC) [Ratio] 12.7 % 11.6-14.6 [facility] Work Phone: Immature granulocytes/100 WBC (Bld) 0.400 % 0.0-0.9 [facility] Work Phone: Comment on above: IG% - Immature Granu locytes (promyelocytes, myelocytes and metamyelocytes) > 1% indicates that a LEFT SHIFT is Present. MCH (RBC) [Entitic mass] 29.2 pg 27.0-32.0 [facility] Work Phone: Nucleated RBC/100 WBC (Bld) [Ratio] 0 % 0-5 [facility] Work Phone: [phone] MCHC Auto (RBC) [Mass/Vol]on 11-20-2021 MCHC (RBC) [Mass/Vol] 33.3 g/dL 32-36 [facility] Work Phone: No Panel Informationon 11-20 D-Dimer Quantitative (PE/DVT) 0.46 FEU/ug/m 0.27-0.49 [facility] Work Phone: Comment on above: NORMAL D-Dimer level (<0.50) indicates no DVT or PE. Estimated GFR (MDRD) Amer 80 mL/min >60 [facility] Work Phone: Comment on above: GFR Calc Estimated GFR (MDRD) Non-Af Amer 66 mL/min >60 [facility] Work Phone: Comment on above: Non- GFR Calc Platelets bldon 11-20-2021 Platelets (Bld) [#/Vol] 177 10*3/uL 150-450 [facility] Work Phone: [phone] Serum or plasma calcium ladonna urement (mass/volume)on 11-20-2021 Calcium [Mass/Vol] 8.8 mg/dL 8.5-10.1 [facility] Work Phone: [phone] Serum or plasma creatinine m easurement (mass/volume)on 11-20-2021 Creatinine [Mass/Vol] 0.91 mg/dL 0.55-1.02 [facility] Work Phone: [phone] Comment on above: The validity of the calculated GFR & GFRAA in patients over 70 years has not been determined. Clinical correlation is essential. Serum or plasma urea nitroge n measurement (mass/volume)on 11-20-2021 Urea nitrogen [Mass/Vol] 18 mg/dL 7-18 [facility] Work Phone: Thin prep Papanicolaou smear with manual screeningon 11-20-2021 Thin prep Papanicolaou smear with manual screening 5 5-15 [facility] Work Phone: Vital Signs Date Time Vital Sign Value Performing Clinician Yazan stokes 07-28-2023 15:30-0500 Body height 157.[address] Rolan Domingo Work Phone: [facility] 07-28-2023 15:30-0500 Body mass index (BMI) [Ratio] 30.9 kg/m2 Dr. Rolan Domingo Work Phone: [facility] 07-28-2023 15:30-0500 Body weight 76.[address] Rolan Domingo Work Phone: [facility] 07-28-2023 15:30-0500 Diastolic blood pressure 89 mm[Hg] Dr. Rolan Domingo Work Phone: [facility] 07-28-2023 15:30-0500 Heart rate 83 /min Dr. Rolan Domingo Work Phone: [facility] 07-28-2023 15:30-0500 Respiratory rate 18 /min Dr. Rolan Domingo Work Phone: [facility] 07-28-2023 15:30-0500 SaO2% (BldA) [Mass fraction] 94 % Dr. Rolan Domingo Work Phone: [facility] 07-28-2023 15:30-0500 Systolic blood pressure 141 mm[Hg] Dr. Rolan Domingo Work Phone: [facility] 03-03-2023 08:19-0400 Body height 157.[address] Rolan Domingo Work Phone: [facility] 03-03-2023 08:19-0400 Body mass index (BMI) [Ratio] 31.6 kg/m2 Dr. Rolan Domingo Work Phone: [facility] 03-03-2023 08:19-0400 Body temperature 97.6 [degF] Dr. Rolan Domingo Work Phone: [facility] 03-03-2023 08:19-0400 Body weight 78.[address] Rolan Domingo Work Phone: [facility] 03-03-2023 08:19-0400 Diastolic blood pressure 79 mm[Hg] Dr. Rolan Domingo Work Phone: [facility] 03-03-2023 08:19-0400 Heart rate 72 /min Dr. Rolan Domingo Work Phone: [facility] 03-03-2023 08:19-0400 Respiratory rate 18 /min Dr. Rolan Domingo Work Phone: [facility] 03-03-2023 08:19-0400 SaO2% (BldA) [Mass fraction] 97 % Dr. Rolan Domingo Work Phone: [facility] 03-03-2023 08:19-0400 Systolic blood pressure 147 mm[Hg] Dr. Rolan Domingo Work Phone: [facility] 01-27-2023 15:27-0400 Body mass index (BMI) [Ratio] 31.4 kg/m2 Dr. Rolan Domingo Work Phone: [facility] 01-27-2023 15:27-0400 Body weight 78.[address] Rolan Domingo Work Phone: [facility] 01-27-2023 15:27-0400 Diastolic blood pressure 79 mm[Hg] Dr. Rolan Domingo Work Phone: [facility] 01-27-2023 15:27-0400 Heart rate 79 /min Dr. Rolan Domingo Work Phone: [facility] 01-27-2023 15:27-0400 Respiratory rate 18 /min Dr. Rolan Domingo Work Phone: [facility] 01-27-2023 15:27-0400 SaO2% (BldA) [Mass fraction] 6 % Dr. Rolan Domingo Work Phone: [facility] 01-27-2023 15:27-0400 Systolic blood pressure 132 mm[Hg] Dr. Rolan Domingo Work Phone: [facility] 01-17-2023 08:41-0400 Body temperature 98.4 [degF] Geneva Athy PA-C Work Phone: [facility] 01-17-2023 08:41-0400 Body weight 80.29 kg Geneva Athy PA-C Work Phone: [facility] 01-17-2023 08:41-0400 Diastolic blood pressure 78 mm[Hg] Geneva Athy PA-C Work Phone: [facility] 01-17-2023 08:41-0400 Heart rate 83 /min Geneva Athy PA-C Work Phone: [facility] 01-17-2023 08:41-0400 Respiratory rate 20 /min Geneva Athy PA-C Work Phone: [facility] 01-17-2023 08:41-0400 SaO2% (BldA) [Mass fraction] 97 % Geneva Athy PA-C Work Phone: [facility] 01-17-2023 08:41-0400 Systolic blood pressure 126 mm[Hg] Geneva Athy PA-C Work Phone: [facility] 07-21-2022 15:35-0500 Body height 157.[address] Rolan Domingo Work Phone: [facility] Work Phone: 07-21-2022 15:35-0500 Body mass index (BMI) [Ratio] 32.3 kg/m2 Dr. Rolan Domingo Work Phone: [facility] Work Phone: 07-21-2022 15:35-0500 Body weight 80.[address] Rolan Domingo Work Phone: [facility] Work Phone: 07-21-2022 15:35-0500 Diastolic blood pressure 82 mm[Hg] Dr. Rolan Domingo Work Phone: [facility] Work Phone: 07-21-2022 15:35-0500 Heart rate 85 /min Dr. Rolan Domingo Work Phone: [facility] Work Phone: 07-21-2022 15:35-0500 Respiratory rate 18 /min Dr. Rolan Domingo Work Phone: [facility] Work Phone: 07-21-2022 15:35-0500 SaO2% (BldA) [Mass fraction] 93 % Dr. Rolan Domingo Work Phone: [facility] Work Phone: 07-21-2022 15:35-0500 Systolic blood pressure 135 mm[Hg] Dr. Rolan Domingo Work Phone: [facility] Work Phone: 01-27-2022 15:32-0400 Body height 157.[address] Rolan Domingo Work Phone: [facility] Work Phone: 01-27-2022 15:32-0400 Body mass index (BMI) [Ratio] 32.3 kg/m2 Dr. Rolan Domingo Work Phone: [facility] Work Phone: 01-27-2022 15:32-0400 Body weight 80.[address] Rolan Domingo Work Phone: [facility] Work Phone: 01-27-2022 15:32-0400 Diastolic blood pressure 77 mm[Hg] Dr. Rolan Domingo Work Phone: [facility] Work Phone: 01-27-2022 15:32-0400 Heart rate 69 /min Dr. Rolan Domingo Work Phone: [facility] Work Phone: 01-27-2022 15:32-0400 Respiratory rate 18 /min Dr. Rolan Domingo Work Phone: [facility] Work Phone: 01-27-2022 15:32-0400 SaO2% (BldA) [Mass fraction] 95 % Dr. Rolan Domingo Work Phone: [facility] Work Phone: 01-27-2022 15:32-0400 Systolic blood pressure 135 mm[Hg] Dr. Rolan Domingo Work Phone: [facility] Work Phone: 01-27-2022 15:32-0400 Body height 157.[address] Rolan Domingo Work Phone: [facility] Work Phone: 01-27-2022 15:32-0400 Body mass index (BMI) [Ratio] 32.3 kg/m2 Dr. Rolan Domingo Work Phone: [facility] Work Phone: 01-27-2022 15:32-0400 Body weight 80.[address] Rolan Domingo Work Phone: [facility] Work Phone: 01-27-2022 15:32-0400 Diastolic blood pressure 77 mm[Hg] Dr. Rolan Domingo Work Phone: [facility] Work Phone: 01-27-2022 15:32-0400 Heart rate 69 /min Dr. Rolan Domingo Work Phone: [facility] Work Phone: 01-27-2022 15:32-0400 Respiratory rate 18 /min Dr. Rolan Domingo Work Phone: [facility] Work Phone: 01-27-2022 15:32-0400 SaO2% (BldA) [Mass fraction] 95 % Dr. Rolan Domingo Work Phone: [facility] Work Phone: 01-27-2022 15:32-0400 Systolic blood pressure 135 mm[Hg] Dr. Rolan Domingo Work Phone: [facility] Work Phone: 12-12-2021 13:11-0400 Body mass index (BMI) [Ratio] 31.8 kg/m2 Dr. Rolan Domingo Work Phone: [facility] Work Phone: 12-12-2021 13:11-0400 Body weight 79.[address] Rolan Domingo Work Phone: [facility] Work Phone: 12-12-2021 13:11-0400 Diastolic blood pressure 68 mm[Hg] Dr. Rolan Domingo Work Phone: [facility] Work Phone: 12-12-2021 13:11-0400 Heart rate 60 /min Dr. Rolan Domingo Work Phone: [facility] Work Phone: 12-12-2021 13:11-0400 Respiratory rate 16 /min Dr. Rolan Domingo Work Phone: [facility] Work Phone: 12-12-2021 13:11-0400 Systolic blood pressure 140 mm[Hg] Dr. Rolan Domingo Work Phone: [facility] Work Phone: 12-12-2021 13:11-0400 Body height 157.[address] Rolan Domingo Work Phone: [facility] Work Phone: 12-12-2021 13:11-0400 Body mass index (BMI) [Ratio] 31.8 kg/m2 Dr. Rolan Domingo Work Phone: [facility] Work Phone: 12-12-2021 13:11-0400 Body weight 79.[address] Rolan Domingo Work Phone: [facility] Work Phone: 12-12-2021 13:11-0400 Diastolic blood pressure 68 mm[Hg] Dr. Rolan Domingo Work Phone: [facility] Work Phone: 12-12-2021 13:11-0400 Heart rate 60 /min Dr. Rolan Domingo Work Phone: [facility] Work Phone: 12-12-2021 13:11-0400 Respiratory rate 16 /min Dr. Rolan Domingo Work Phone: [facility] Work Phone: 12-12-2021 13:11-0400 Systolic blood pressure 140 mm[Hg] Dr. Rolan Domingo Work Phone: [facility] Work Phone: 11-20-2021 13:19-0400 Body mass index (BMI) [Ratio] 31.8 kg/m2 Dr. Rolan Domingo Work Phone: [facility] Work Phone: 11-20-2021 13:19-0400 Body temperature 97.5 [degF] Dr. Rolan Domingo Work Phone: [facility] Work Phone: 11-20-2021 13:19-0400 Body weight 78.[address] Rolan Domingo Work Phone: [facility] Work Phone: 11-20-2021 13:19-0400 Diastolic blood pressure 68 mm[Hg] Dr. Rolan Domingo Work Phone: [facility] Work Phone: 11-20-2021 13:19-0400 Heart rate 77 /min Dr. Rolan Domingo Work Phone: [facility] Work Phone: 11-20-2021 13:19-0400 SaO2% (BldA) [Mass fraction] 97 % Dr. Rolan Domingo Work Phone: [facility] Work Phone: 11-20-2021 13:19-0400 Systolic blood pressure 144 mm[Hg] Dr. Rolan Domingo Work Phone: [facility] Work Phone: 11-20-2021 13:19-0400 Body height 157.[address] Rolan Domingo Work Phone: [facility] Work Phone: 11-20-2021 13:19-0400 Body mass index (BMI) [Ratio] 31.8 kg/m2 Dr. Rolan Domingo Work Phone: [facility] Work Phone: 11-20-2021 13:19-0400 Body temperature 97.5 [degF] Dr. Rolan Domingo Work Phone: [facility] Work Phone: 11-20-2021 13:19-0400 Body weight 78.[address] Rolan Doimngo Work Phone: [facility] Work Phone: 11-20-2021 13:19-0400 Diastolic blood pressure 68 mm[Hg] Dr. Rolan Domingo Work Phone: [facility] Work Phone: 11-20-2021 13:19-0400 Heart rate 77 /min Dr. Rolan Domingo Work Phone: [facility] Work Phone: 11-20-2021 13:19-0400 SaO2% (BldA) [Mass fraction] 97 % Dr. Rolan Domingo Work Phone: [facility] Work Phone: 11-20-2021 13:19-0400 Systolic blood pressure 144 mm[Hg] Dr. Rolan Domingo Work Phone: [facility] Work Phone: Encounters Encounter Date Encounter Type Care Provider Facility Start: 04-03-2025 ambulatory Miri Sheriff NP Fac ility:[facility] Start: 03-22-2025 ambulatory [facility] Facili ty:[facility] Start: 03-10-2025 ambulatory [facility] Facili ty:[facility] Start: 12-21-2024 End: 12-21-2024 ambulatory [facility] Facility:[facility] Start: 09-03-2024 End: 09-03-2024 ambulatory Keena MILES Facility:[facility] Start: 07-27-2024 End: 07-27-2024 ambulatory [facility] Facility:[facility] Start: 07-27-2024 End: 07-27-2024 ambulatory Sylvester Domingo Facility:[facility] Start: 04-08-2024 End: 04-08-2024 ambulatory Rolan Domingo Facility:[facility] Start: 04-02-2024 End: 04-02-2024 ambulatory Rolan Domingo Facility:[facility] Start: 09-11-2023 End: 09-11-2023 ambulatory ROLAN DOMINGO Facility:[facility] Start: 09-11-2023 End: 09-11-2023 Subsequent hospital visit by physician Xr [facility] Work Phone: Radiology Comment on above: Acute cough [R05.1] Start: 07-28-2023 End: 07-28-[address] Rolan Domingo Work Phone: [facility] Work Phone: Start: 07-25-2023 End: 07-25-[address] Rolan Domingo Work Phone: [facility] Work Phone: Start: 07-25-2023 End: 07-25-[address] Rolan Domingo Work Phone: [facility] Work Phone: Start: 04-01-2023 End: 04-01-[address] Rolan Domingo Work Phone: [facility] Work Phone: Start: 04-01-2023 End: 04-01-[address] Rolan Domingo Work Phone: [facility] Work Phone: Start: 03-28-2023 End: 03-28-[address] Rolan Domingo Work Phone: [facility] Work Phone: Start: 03-28-2023 End: 03-28-[address] Rolan Domingo Work Phone: [facility] Work Phone: Start: 03-03-2023 End: 03-03-[address] Rolan Domingo Work Phone: [facility] Work Phone: Start: 01-27-2023 End: 01-27-[address] Rolan Domingo Work Phone: [facility] Work Phone: Start: 01-17-2023 End: 01-17-2023 ambulatory ROLAN DOMINGO Facility:[facility] Start: 01-17-2023 End: 01-17-2023 Patient encounter procedure Geneva Melendez PA-C Work Phone: [facility] Comment on above: Bronchitis (Primary Dx) Start: 07-26-2022 End: 07-26-[address] Rolan Domingo Work Phone: [facility] Work Phone: Start: 07-26-2022 End: 07-26-[address] Rolan Domingo Work Phone: [facility] Start: 07-21-2022 End: 07-21-[address] Rolan Domingo Work Phone: [facility] Start: 02-10-2022 End: 02-10-[address] Rolan Domingo Work Phone: [facility] Start: 01-27-2022 End: 01-27-[address] Rolan Domingo Work Phone: [facility] Start: 01-25-2022 End: 01-25-[address] Rolan Domingo Work Phone: [facility] Start: 01-03-2022 Non-patient / Non-visit Dr. Ysabel Domingo Work Phone: [facility] Start: 01-03-2022 End: 01-03-[address] Rolan Domingo Work Phone: [facility] Start: 12-12-2021 End: 12-12-[address] Rolan Domingo Work Phone: [facility] Start: 11-20-2021 End: 11-20-[address] Rolan Domingo Work Phone: [facility] Start: 11-20-2021 End: 11-20-[address] Rolan Domingo Work Phone: [facility] Internal Medicine Procedures Date Procedure Procedure Detail Performing Clinician Start: 09-11-2023 Radiologic exam ches t 2 views Geneva Melendez PA-C Work Phone: Start: 04-01-[address] Isreal Domingo Work Phone: Start: 02-10-[address] Isreal Domingo Work Phone: Start: 04-13-2010 Lipid 1996 panel - S jorge or Plasma Xr [place] Work Phone: Start: 03-25-2010 Mammography Geneva Melendez PA-C Work Phone: Start: 03-19-2010 Colonoscopy Geneva Melendez PA-C Work Phone: Plan of Treatment Date Care Activity Detail Author Start: 04-17-2024 Covid-19 Vaccine () Covid-19 Vaccine () [facility] Start: 04-17-2024 Influenza vaccination Influenza Vaccine (#1) [facility] Start: 04-17-2023 Influenza vaccination INFLUENZA (Season Ended) [facility] Start: 08-17-2022 DEPRESSION ASSESSMENT DEPRESSION ASSESSMENT [facility] Start: 11-20-2021 Patient referral [facility] Work Phone: Start: 2019 RSV Vaccine (1 - 1-dose 60+ series) RSV Vaccine (1 - 1-dose 60+ series) [facility] Start: 04-13-2015 Lipid panel Lipid Screening [facility] Start: 04-13-2015 LIPID SCREEN LIPID SCREEN [facility] Start: 04-13-2013 DIABETES SCREEN DIABETES SCREEN [facility] Start: 04-13-2013 Diabetes Screening Diabetes Screening [facility] Start: 03-25-2011 Mammography MAMMOGRAM [facility] Start: 03-25-2011 Screening for malignant neoplasm of breast Mammogram Screening [facility] Start: 03-19-2011 Colonoscopy COLONOSCOPY [facility] Start: 03-19-2011 COLORECTAL CANCER SCREENING COLORECTAL CANCER SCREENING [facility] Start: 03-19-2011 Screening for malignant neoplasm of colon [facility] Start: 12-15-2010 Urine microalbumin profile [facility] Start: 12-18-2009 Influenza vaccination LUNG CANCER SCREENING [facility] Start: 12-18-2009 Screening for malignant neoplasm of lung Lung Cancer Screening [facility] Start: 12-18-2009 SHINGRIX VACCINE (1 of 2) SHINGRIX VACCINE (1 of 2) [facility] Start: 12-18-2004 COLOGUARD (FIT-DNA) COLOGUARD (FIT-DNA) [facility] Start: 12-18-[address] COLONOGRAPHY [facility] Start: 12-18-2004 FECAL OCCULT BLOOD FECAL OCCULT BLOOD [facility] Start: 12-18-2004 Screening for malignant neoplasm of colon [facility] Start: 12-18-2004 SIGMOIDOSCOPY SIGMOIDOSCOPY [facility] Start: 12-18-1977 Anxiety Screening Anxiety Screening [facility] Start: 12-18-1977 Depression Screening Depression Screening [facility] Start: 12-18-1977 HEPATITIS C SCREENING HEPATITIS C SCREENING [facility] Start: 12-18-1977 Hepatitis C screening Hepatitis C Screening [facility] Start: 12-18-1977 HIV SCREENING HIV SCREENING [facility] Start: 12-18-1977 HIV screening HIV Screening [facility] Start: 12-18-1965 PNEUMOCOCCAL (1 - PCV) PNEUMOCOCCAL (1 - PCV) [facility] Start: 12-18-1965 Pneumococcal vaccination Pneumococcal Vaccine (1 of 2 - PCV) [facility] Start: 06-20-1960 COVID-19 VACCINE (#1) COVID-19 VACCINE (#1) [facility] Blood chemistry [facility] CBC W Auto Different ial panel - Blood [facility] Hemoglobin A1c/Hemoglobin.total in Blood [facility] Patient referral [facility] Work Phone: Immunizations Immunization Date Immunization Notes Care Provider Fa cility 06-06-2009 influenza virus vaccine, unspecified formulation Geneva Melendez PA-C Work Phone: [facility] Work Phone: 12-15-2000 diphtheria and tetan us toxoids, adsorbed for pediatric use Geneva Melendez PA-C Work Phone: [facility] Work Phone: Payers Date Payer Category Payer Medicare [id number] 2023 Self-pay [id number] 2005 [employer] ( and others) [id number] 2005 Unknown [facility] [id number] 2005-Present [phone] [address] [place] [address] Indemnity [id number] [employer] ( and others) [id number] Unknown [id number] Unknown [id number] Unknown [id number] Unknown [id number] Unknown [id number] Unknown [id number] Unknown [id number] Unknown [id number] Unknown [id number] Social History Date Type Detail Facility Start: 11-20-2021 End: 07-28-2023 Tobacco smoking status CAIS Unknown if ever smoked [facility] Start: 1960 Sex Assigned At Female [facility] Start: 05-16-2013 [facility] Work Phone: History of tobacco use Cigarette Smoker [facility] Work Phone: Start: 05-16-2013 End: 07-22-2020 Cigarettes smoked current (pack per day) - Reported 1 [facility] Start: 05-16-2013 Tobacco use and exposure Smokeless tobacco non-user [facility] Work Phone: Start: 01-17-2023 End: 09-11-2023 Alcohol intake Current drinker of alcohol (finding) [facility] Start: 06-08-2013 Alcohol Comment 1 drink per month [facility] Start: 1960 Sex Assigned At Not on file [facility] Start: 07-22-2020 End: 09-11-2023 Tobacco use panel [facility] National Score (1-10 0), lower number is lower risk Not on file [facility] Clinical Notes 01-17-2023 to 09-11-2023 Eva Bowen RT(R) - 09/11/2023 8:30 AM Finesse Melendez PA-C - 01/17/2023 9:08 AM EDT Note Date & Type Note Facility 09-11-2023 Note HNO ID: [id number] Author: GENEVA MELENDEZ PA-C Service: ? Author Type: Physician Staff Antisubmarine Officer Type: Progress Notes Filed: 09/11/2023 08:54 Note Text: This note was created using Wheeboxriter. Subjective Renzo Law is a 62 year [...] XR CHEST 2V FRONTAL/LAT Geneva Melendez PA-C [facility] 09-11-2023 Note HNO ID: [id number] Author: EVA BOWEN RT(Michael) Service: Radiology Author [...] PATIENT PRESENTS WITH AN IMPLANTABLE OR ATTACHED HOSPICE CARE SALES CONSULTANT: No RADIOLOGY DEPARTMENT: General X-ray: Exam(s) Completed: Chest X-Ray PERIPHERAL IV DATA: Not applicable SIGNED BY: RT Fish(R) September 11, 2023 8:22 AM [facility] 09-11-2023 History of Present illness Narrative Radiology [...] PATIENT PRESENTS WITH AN IMPLANTABLE OR ATTACHED HOSPICE CARE SALES CONSULTANT: No RADIOLOGY DEPARTMENT: General X-ray: Exam(s) Completed: Chest X-Ray PERIPHERAL IV DATA: Not applicable SIGNED BY: RT Fish(R) September 11, 2023 8:22 AM documented in this encounter [facility] 01-17-2023 Note HNO ID: [id number] Author: Geneva Melendez PA-C Service: ? Author Type: Physician Staff Antisubmarine Officer Type: Progress Notes Filed: 01/17/2023 9:10 AM Note Text: This note was created using Wheeboxriter. Subjective Renzo Law is a 62 year [...] present. Comments: Mild (more content not included)... [facility] 01-17-2023 History of Present illness Narrative This note was created using Givey. Subjective Renzo Law is a 62 year [...] Geneva Melendez PA-C documented in this encounter [facility] Evaluation note Diagnosis Onset Date Hypertension [facility] Work Phone: Evaluation note* Diagnosis Onset Date Resolution Status Abnormal EKG acute Essential hypertension acute Leg edema acute [facility] Work Phone: Evaluation note* Diagnosis Onset Date Resolution Status Abnormal EKG acute Essential hypertension acute Leg edema acute Essential hypertension acute Leg edema acute [facility] Work Phone: Evaluation note* Diagnosis Onset Date Resolution Status Edema noneactive Abnormal EKG acute Essential hypertension acute Leg edema acute Essential hypertension acute Leg edema acute [facility] Work Phone: Evaluation note* Diagnosis Onset Date Resolution Status Essential hypertension acute Leg edema acute [facility] Work Phone: Evaluation note* Diagnosis Bronchitis- Primary Bronchitis, not specified as acute or chronic [facility] Diagnosis Onset Date Resolution Status Essential hypertension acute Hyperlipidemia acute Morbid (severe) obesity due to excess calories chronic MIRANDA (obstructive sleep apnea) chronic Smoking greater than 40 pack years chronic [facility] Work Phone: Evaluation note* Diagnosis Acute cough documented in this encounter [facility] note* Diagnosis Onset Date Resolution Status Borderline type 2 diabetes mellitus acute Essential hypertension acute Hyperlipidemia acute [facility] Work Phone: [facility] Work Phone: [facility] Work Phone: [facility] Work Phone: [facility] Work Phone: Chief Complaint and Reason [...] or prosecute any alcohol or drug abuse patient.[facility] the event this information is protected by the Federal Confidentiality of Alcohol and Drug Abuse Patient Records regulations: The Federal rules restrict any use of the information to criminally investigate or prosecute any alcohol or drug abuse patient.[facility] Reason for Visit (unrecogniz ed section and [...] Care Provider, Refer ring Provider Active Miri Sheriff COPY COORDINATOR, COPY COORDINATOR-C Attending Provider Active Team Status: Inactive Member Role Status Dates Dr. Rolan Domingo MD Primary Care Provider, Refer ring Provider Active Loly Cervantes COPY COORDINATOR, COPY COORDINATOR-C Attending Provider Active Team Status: Active Member Role Status Dates Dr. Rolan Domingo MD Primary Care Provider Active Miri Sheriff COPY COORDINATOR, COPY COORDINATOR-C Attending Provider, Referrin g Provider Active Team Status: Inactive Member Role Status Dates Dr. Rolan Domingo MD Primary Care Provider Active Loly Cervantes NP, COPY COORDINATOR-C Attending Provider, Referring P enriqueta Active Team Status: Inactive Member Role Status Dates Dr. Rolan Domingo MD Primary Care Provider Active Miri Sheriff NP, COPY COORDINATOR-C Attending Provider, Referrin g Provider Active Purchasing Buyer Relationship Specialty Start Date End Date Rolan Domingo MD [address] [place] [address] PCP - General Internal Medicine 09/11/23 Team Status: Inactive Member Role Status Dates Dr. Rolan Domingo MD Primary Care Provider, Refer ring Provider Active Stan Sheikh COPY COORDINATOR, COPY COORDINATOR-C Attending Provider Active INFORMATION SOURCE (unrecogn ized section and content) DATE CREATED AUTHOR 09/12/2023 [facility] DATE CREATED AUTHOR AUTHOR'S ORGANIZ ATION 03/16/2025 [facility] FOR RECORDS PERTAINING TO PATIENTS WHO ARE [...] BE BASED ON THE PRIMARY CLINICAL RECORDS. [employer] [facility]. provides no warranty or guarantee of the accuracy or completeness of information in this document.
--- NOTE | 2025-03-22 08:03 | RAD_ITS ---
PROCEDURE: HAND MIN 3 VIEWS 03/22/2025 REASON FOR EXAM: PAIN TECHNIQUE: HAND MIN 3 VIEWS COMPARISON: None. FINDINGS: Moderate to severe degenerative joint disease of the 1st carpometacarpal joint. Moderate degenerative joint disease of the 1st metacarpophalangeal joint. Mild osteopenia of the visualized bones. Degenerative joint disease. No fracture or dislocation is seen. No lytic or blastic bone lesion is noted. RAD/Hand Min 3 Views IMPRESSION: Degenerative joint disease, more prominent in the 1st carpometacarpal joint. Reading Location[facility]
--- NOTE | 2025-03-22 08:03 | RAD_ITS ---
PROCEDURE: HAND MIN 3 VIEWS 03/22/2025 REASON FOR EXAM: PAIN TECHNIQUE: HAND MIN 3 VIEWS COMPARISON: None. FINDINGS: Moderate to severe degenerative joint disease of the 1st carpometacarpal joint. Moderate degenerative joint disease of the 1st metacarpophalangeal joint. Mild osteopenia of the visualized bones. Degenerative joint disease. No fracture or dislocation is seen. No lytic or blastic bone lesion is noted. RAD/Hand Min 3 Views IMPRESSION: Degenerative joint disease, more prominent in the 1st carpometacarpal joint. Reading Location[facility]
== END | disposition home or self-care (01) ==
PROVIDERS: PCP Family Medicine; Referring Provider Family Medicine; Visit Provider Family Medicine
DX: Z12.31 Encounter for screening mammogram for malignant neoplasm of breast (principal); Z78.0 Asymptomatic menopausal state; Z13.820 Encounter for screening for osteoporosis
CPT/HCPCS: 73130; 77063; 77067; 77080

== ENCOUNTER → 2025-04-03 | Outpatient (CLI) | payer MEDICARE, OTHER, SELFPAY ==
--- NOTE | 2025-04-03 08:11 | CT_ITS ---
PROCEDURE: LOW DOSE CT LUNG SCREENING 04/03/2025 REASON FOR EXAM: SMOKER TECHNIQUE: LOW DOSE CT LUNG SCREENING Coronal and Sagittal reconstruction series were provided. One or more dose reduction techniques were used (e.g., Automated exposure control, adjustment of the mA and/or kV according to patient size, use of iterative reconstruction technique). REFERENCE LINK: [employer] Lung-RADS RADIATION DOSE SUMMARY: CTDlvol: 3.02 mGy DLP: 93.27 mGycm COMPARISON: Prior study dated April 02, 2024. FINDINGS: PULMONARY NODULES: (Only nodules >3mm are reported) Nodules described below are on series 1 unless otherwise specified. Pulmonary Nodules: No suspicious pulmonary nodule is seen. Stable calcified granuloma in the right upper lobe. Hardware:None Lymph Nodes:No enlarged lymph nodes are seen. Heart and Vasculature:The heart is nonenlarged.Mild atherosclerotic calcification of the aortic arch. Coronary Artery Calcifications: Present Lungs and Airways: Mild emphysematous changes are present. Pleura:Unremarkable Upper Abdomen:Unremarkable Bones:Degenerative changes of the thoracic spine. CT/Low Dose CT Lung Screening IMPRESSION: No suspicious nodules are seen. Coronary artery calcification (CAC) is is present Lung-RADS Category: 2 BENIGN (BASED ON IMAGING FEATURES OR INDOLENT BEHAVIOR). RECOMMEND 12-MONTH SCREENING LDCT. Other Significant Findings: Reading Location: [place]
== END | disposition home or self-care (01) ==
LOC: CT 08:11
PROVIDERS: PCP Family Medicine; Referring Provider Nurse Practitioner Acute Care; Visit Provider Nurse Practitioner Acute Care
DX: F17.210 Nicotine dependence, cigarettes, uncomplicated (principal)
CPT/HCPCS: 71271

== ENCOUNTER → 2025-04-29 | Outpatient (CLI) | payer MEDICARE, OTHER, SELFPAY ==
--- OUTSIDE RECORDS SUMMARY | 2025-04-29 07:11 | XMS RPT_ITS | CCD ---
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 Rolan Domingo Primary Care Provider [phone] Dr. Rolan Domingo Referring Provider [phone] GINGER Horn Attending Provider Unavailab Dr. Holger Pritchard Attending Provider [phone] Dr. Stephon Chinchilla Attending Provider Dr. Holger Recio Referring Provider [phone] Billy HEARD, JORGE LUIS Salcido Attending Provider Dr. Rolan Domingo Primary Care Provider [phone] Dr. Rolan Domingo Referring Provider [phone] JORGE LUIS Cervantes NP Attending Provider Unavailable Primary Care Provider UnavailDr. Rolan Dc Primary Care Provider [phone] Dr. Rolan Domingo Referring Provider [phone] Billy HEARD, JORGE LUIS Salcido Attending Provider Sharita HEARD, CEMENT KILN OPERATOR-Laine Chery Attending Provider [phone] ROLAN DOMINGO Primary Care Unavailable GENEVA MELENDEZ Referring Unavailable ROLAN DOMINGO Primary Care Unavailable Rolan Domingo MD Primary Care Provider [phone] Dr. Rolan Domingo Primary Care Provider [phone] Dr. Rolan Domingo Referring Provider [phone] Kori HEARD, JORGE LUIS Ruffin Attending Provider Chayo ALVAREZ, Dr. Gongora Primary Care Provider Chayo ALVAREZ, Dr. Gongora Referring Provider [phone] Vaibhav CEMENT KILN OPERATOR-C, Layla Attending Provider Rae DO, Marybeth Primary Care Provider Rae DOMarybeth Attending Provider Rae DO, Marybeth Referring Provider Sharita CEMENT KILN OPERATOR-C, Miri Attending Provider Sharita CEMENT KILN OPERATOR-C, Miri Referring Provider Chayo ALVAREZ, Dr. Gongora Referring Provider [phone] Vaibhav CEMENT KILN OPERATOR-C, Layla Attending Provider Oleghe, Efewongbe Primary Care Unavailable Sylvester Domingo Attending Unavailable Sylvester Domingo Referring Unavailable Layla Esposito Attending Unavailable Oleghe, Efewongbe Primary Care Unavailable Oleghe, Efewongbe Referring Unavailable Keena Francisco Attending Unavail able Keena Francisco Referring Unavail able Oleghe, Efewongbe Primary Care Unavailable Rae VSC, Marybeth Primary Care Unavailable Miri Sheriff NP Attending Unavailable Miri Sheriff NP Referring Unavailable Rae VSC, Marybeth Attending Unavailable Rae VSC, Marybeth Referring Unavailable Rae VSC, Marybeth Primary Care Unavailable Oleghe, Efewongbe Primary Care Unavailable Oleghe, Efewongbe Referring Unavailable Sylvester Domingo Attending Unavailable Layla Esposito Attending Unavailable Oleghe, Efewongbe Referring Unavailable Rae VSC, Marybeth Primary Care Unavailable Rae VSC, Marybeth Referring Unavailable Miri Sheriff NP Attending Unavailable Rae VSC, Marybeth Primary Care Unavailable Allergies Allergy Classification Reported Allergen(s) Allergy Type Date of Onset Reaction(s) Facility (15 sources) Codeine; Translations: [CODEINE] Drug Allergy 7 Memory Loss [facility] Work Phone: (8 sources) rosuvastatin Drug Allergy 2 Heart burn [facility] (3 sources) Naproxen; Translations: [NAPROXEN] Drug Allergy 7 GI Upset [facility] Work Phone: (3 sources) Perfumes; Translations: [PERFUMES] Propensity to adverse reactions 7 [facility] Work Phone: (5 sources) amLODIPine Drug Allergy 3 Edema [facility] (1 source) amLODIPine Drug Allergy 5 [facility] (1 source) Codeine Drug Allergy 5 [facility] (1 source) rosuvastatin Drug Allergy 5 [facility] Medications Current Medications Medication Drug Class(es) Dates Sig (Normalized) Sig (Original) [id number] actuat albuterol 0.09 mg/actuat metered dose inhaler (18 sources) beta2-Adrenergic Agonist Start: 12-21-2024 End: 04-11-2025 Albuterol Sulfate 90 mcg/actuation HFA aerosol inhaler Active 2 NMA INHALATION Q8H as needed for shortness of breath or wheezing 3 3 April 11, 2025 9:32am Start: 04-08-2024 End: 12-21-2024 Albuterol Sulfate 90 mcg/act uation HFA aerosol inhaler Discontinued INHALATION April 08, 2024 12:00am December 21, 2024 8:10am Start: 01-17-2023 End: 09-11-2023 take 2 puff(s) [...] (Course of therapy completed) Start: 07-19-2013 End: 01-26-2024 take 2 puff(s) by inhalation every four [...] in structed every 4 hours as needed. ascorbic acid 500 mg oral tablet (2 sources) Vitamin C Start: 12-22-2006 take 1 tablet by mouth once daily ascorbic acid (VITAMIN C) 500 mg ORAL Tab Take one(1) tablet daily. 0 12/22/2006 Active Comment on above: Take one(1) tablet d aily. Blood-Glucose Meter (Accu-Chek Guide Glucose Meter) misc (8 sources) Start: 12-22-2024 Blood-Glucose Meter (Accu-Chek Guide Glucose Meter) misc Active 0 .Route 1 0 December 22, 2024 2:57pm Diabetes mellitus Type 2 diabetes mellitus without complications As directed Start: 12-21-2024 End: 12-22-2024 Blood-Glucose Meter (Accu-Ch ek Guide Glucose Meter) misc Discontinued 0 .Route 1 0 December 21, 2024 12:00am December 22, 2024 2:57pm Diabetes mellitus Type 2 diabetes mellitus without complications As directed calcium ascorbate 500 mg oral tablet (12 sources) Start: 02-08-2019 take 1 tablet by mouth once daily Ascorbate Calcium (Vitamin C) 500 mg tablet Active 500 mg PO DAILY February 08, 2019 12:00am cholecalciferol 0.025 mg oral capsule (20 sources) Vitamin D Start: 12-21-2024 take 1 capsule by mouth once daily Cholecalciferol (Vitamin D3) 25 mcg (1,000 unit) capsule Active 25 ug PO daily December 21, 2024 12:00am Start: 12-12-2021 End: 12-21-2024 take 1 tablet by mouth once daily Cholecalciferol (Vitamin D3) 125 mcg (5,000 unit) tablet Discontinued 125 ug PO DAILY December 12, 2021 12:00am December 21, 2024 8:01am Start: 02-08-2019 End: 12-12-2021 take 1 tablet by mouth once daily Cholecalciferol (Vitamin D3) 3,000 unit tablet Discontinued 3000 U PO DAILY February 08, 2019 12:00am December 12, 2021 1:12pm cyclobenzaprine hydrochloride 10 mg oral tablet (2 [...] hyclate 100 mg oral tablet (1 source) Tetracycline-class Drug Start: 01-17-2023 End: 01-24-2023 take 1 tablet by mouth twice daily doxycycline (VIBRA-TABS) 100 mg tablet Take 1 tablet by mouth twice daily for 7 days. 14 tablet 0 01/17/2023 01/24/2023 Active Comment on above: Take 1 tablet by rony th twice daily for 7 days. empagliflozin 10 mg oral tablet (14 sources) Sodium-Glucose Cotransporter 2 Inhibitor Start: 07-29-2024 End: 04-24-2025 take 1 tablet by mouth once daily in the morning Empagliflozin (Jardiance) 10 mg tablet Active 10 mg PO EVERY MORNING April 11, 2025 12:00am ergocalciferol, vitamin D2, (VITAMIN D2 ORAL) (2 sources) ergocalciferol, vitamin D2, (VITAMIN D2 ORAL) Take by mouth. Active ergocalciferol, vitamin D2, (VITAMIN D2 ORAL) Take by mouth. 0 Active Comment on above: Take by mouth. ezetimibe 10 mg oral tablet (20 sources) Dietary Cholesterol Absorption Inhibitor Start: 04-24-2025 take 1 tablet by mouth once daily Ezetimibe (Zetia) 10 mg tablet Active 10 mg PO daily April 24, 2025 12:00am Start: 07-29-2022 End: 04-11-2025 take 1 tablet by mouth once daily Ezetimibe 10 mg tablet Discontinued 10 mg PO DAILY 90 3 December 22, 2024 2:06pm April 11, 2025 9:13am fenofibrate 160 mg oral tablet (16 sources) Peroxisome Proliferator Receptor alpha Agonist Start: 12-21-2024 take 1 tablet by mouth once daily Fenofibrate 160 mg tablet Active 160 mg PO daily 90 December 21, 2024 12:00am Start: 04-18-2021 End: 04-18-2021 take 1 tablet by mouth once daily Fenofibrate 54 mg tablet Discontinued 54 mg PO DAILY 60 April 18, 2021 12:00am April 18, 2021 7:16pm fexofenadine hydrochloride 180 mg oral tablet (14 sources) Histamine-1 Receptor Antagonist Start: 02-08-2019 take 1 tablet by mouth every twenty-four hours Fexofenadine (Day Allergy) 180 mg tablet Active 180 mg PO Q24H February 08, 2019 12:00am Start: 03-19-2010 fexofenadine h cl(DAY 180 MG TAB) Indications: Allergic rhinitis, cause unspecified Take one(1) tablet daily. 30 12 03/19/2010 Active Comment on above: Take one(1) tablet d aily. mecobalamin (4 sources) Start: 12-22-19 take 1 tablet by mouth once daily Mecobalamin (Vitamin B12) 2,500 mcg tablet,chewable Active 2500 ug PO DAILY December 21, 2024 12:00am melatonin 3 mg oral tablet (20 sources) Start: 02-09-20 End: 04-10-20 take 1 tablet by mouth at bedtime as needed Melatonin 3 mg tablet Active 3 mg PO BEDTIME as needed April 10, 2021 11:30am metFORMIN hydrochloride 500 mg oral tablet (4 sources) Biguanide Start: 01-20-20 take 2 tablets by mouth twice daily at mealtime Metformin 500 mg tablet Active 1000 mg PO 2 times per day with meals 120 5 January 19, 2025 12:00am Diabetes mellitus Type 2 diabetes mellitus with hyperglycemia Multivitamin (DAILY MULTIPLE) ORAL Tab (2 sources) Start: 12-23-19 take 1 tablet by mouth once daily Multivitamin (DAILY MULTIPLE) ORAL Tab Take one(1) tablet daily. 0 12/22/2006 Active Comment on above: Take one(1) tablet d aily. naproxen sodium 220 mg oral tablet (2 sources) Nonsteroidal Anti-inflammatory Drug Start: 07-28-20 07 naproxen sodium(ALEVE 220 MG TAB) takes 2 tablets twice daily as needed for back pain 0 07/28/2007 Active Comment on above: takes 2 tablets twic e daily as needed for back pain omeprazole 10 mg delayed release oral capsule (1 source) Proton Pump Inhibitor Start: 04-24-20 25 take 1 capsule by mouth once daily as needed Omeprazole 10 mg capsule,delayed release(DR/EC) Active 10 mg PO daily as needed April 24, 2025 12:00am OTC PRODUCT (2 sources) Start: 05-16-20 13 OTC PRODUCT Flash fighter - takes for menopause. Takes 3 tablets at evening meal 0 05/16/2013 Active Comment on above: Flash fighter - take s for menopause. Takes 3 tablets at evening meal predniSONE 20 mg oral tablet (1 source) Start: 01-18-20 End: 01-23-20 take 2 tablets by mouth once daily predniSONE (DELTASONE) 20 mg tablet Take 2 tablets by mouth once daily for 5 days. 10 tablet 0 01/17/2023 01/22/2023 Active Comment on above: Take 2 tablets by mo ut once daily for 5 days. Vitamin B Complex (B Complex-Vitamin B12) tablet (12 sources) Start: 02-09-20 19 take 1 tablet by mouth once daily Vitamin B Complex (B Complex-Vitamin B12) tablet Active 1 TABLET PO DAILY February 08, 2019 2:24pm Start: 02-08-2019 End: 12-21-2024 Vitamin B Complex (B Complex -Vitamin B12) tablet Discontinued 1 {tbl} PO DAILY February 08, 2019 12:00am December 21, 2024 8:10am Start: 02-08-2019 take 1 tablet by rony [...] Drug Class(es) Dates Sig (Normalized) Sig (Original) amLODIPine 5 mg oral tablet (20 sources) Dihydropyridine Calcium Channel Santana Start: 11-20-2021 End: 12-12-2021 take 1 tablet by mouth once daily Amlodipine 5 mg tablet Discontinued 5 mg PO DAILY 30 November 20, 2021 1:31pm December 12, 2021 2:05pm Start: 06-05-2021 End: 11-20-2021 take 1 tablet by mouth once daily Amlodipine 10 mg tablet Discontinued 10 mg PO DAILY 90 June 05, 2021 11:34am November 20, 2021 1:37pm Start: 04-10-2021 End: 06-05-2021 take 1 tablet by mouth once daily Amlodipine 5 mg tablet Discontinued 5 mg PO DAILY 30 April 10, 2021 12:00am June 05, 2021 11:35am benzonatate 100 mg oral capsule (6 sources) [...] by mouth three times daily as needed. gemfibrozil 600 mg oral tablet (12 sources) Peroxisome Proliferator Receptor alpha Agonist Start: 2020 End: 2020 take 1 tablet by mouth twice daily Gemfibrozil 600 mg tablet Discontinued 600 mg PO TWICE A DAY 60 April 10, 2021 12:00am April 18, 2021 7:16pm hydroCHLOROthiazide 25 mg oral tablet (20 sources) Thiazide Diuretic Start: 2021 End: 2024 take 1 tablet by mouth once daily Hydrochlorothiazide 25 mg tablet Discontinued 25 mg PO DAILY 90 March 21, 2024 8:13am December 22, 2024 2:07pm icosapent ethyl 1000 mg oral capsule (20 sources) Start: 2022 End: 2024 Icosapent Ethyl (Vascepa) 1 gram capsule Discontinued 2 g PO TWICE A DAY 360 October 26, 2024 12:44pm December 22, 2024 2:07pm 24 hr metoprolol succinate 50 mg extended release oral tablet (20 sources) beta-Adrenergic Santana Start: 2021 End: 2024 take 1 tablet by mouth once daily Metoprolol Succinate 50 mg tablet extended release 24 hr Discontinued 50 mg PO DAILY 90 January 18, 2024 8:23am December 22, 2024 2:07pm Start: 01-27-2022 End: 07-21-2022 take 1 tablet by mouth twice daily Metoprolol Succinate 50 mg tablet extended release 24 hr Discontinued 50 mg PO TWICE A DAY 180 March 25, 2022 10:57am July 21, 2022 4:40pm Start: 12-12-2021 End: 01-27-2022 take 2 tablets by mouth once daily Metoprolol Succinate 100 mg tablet extended release 24 hr Discontinued 50 mg PO DAILY 30 December 12, 2021 2:05pm January 27, 2022 3:55pm Start: 12-12-2021 End: 01-27-2022 take 50 mg by mouth once daily Metoprolol Succinate Di scontinued 50 MG PO DAILY December 12, 2021 1:05pm January 27, 2022 2:55pm Start: 11-20-2021 End: 12-12-2021 take 1 tablet by mouth once daily Metoprolol Succinate 100 mg tablet extended release 24 hr Discontinued 100 mg PO DAILY 30 November 20, 2021 1:33pm December 12, 2021 2:08pm Start: 07-03-2021 End: 11-20-2021 take 1 tablet by mouth once daily Metoprolol Succinate 50 mg tablet extended release 24 hr Discontinued 50 mg PO DAILY 60 3 July 03, 2021 1:00am November 20, 2021 1:37pm rosuvastatin calcium 10 mg oral tablet (20 sources) HMG-CoA Reductase Inhibitor Start: 04-18-2021 End: 07-21-2022 take 1 tablet by mouth once daily Rosuvastatin 10 mg tablet Discontinued 10 mg PO DAILY 90 August 13, 2021 1:22pm July 21, 2022 4:37pm Semaglutide (4 sources) Start: 01-11-2025 End: 04-11-2025 Semaglutide (Ozempic) 0.25 mg or 0.5 mg (2 mg/3 mL) pen injector Discontinued 0.5 mg SC EVERY WEEK 9 January 11, 2025 12:00am April 11, 2025 9:11am Diabetes mellitus Type 2 diabetes mellitus with hyperglycemia Start: 01-11-2025 Semaglutide (O zempic) 0.25 mg or 0.5 mg (2 mg/3 mL) pen injector Active 0.5 mg SC EVERY WEEK 9 January 11, 2025 12:00am Diabetes mellitus Type 2 diabetes mellitus with hyperglycemia varenicline 1 mg oral tablet (20 sources) Partial Cholinergic Nicotinic Agonist Start: 07-27-2019 End: 02-21-2021 take 1 tablet by mouth twice daily, then take 1 tablet by mouth once Varenicline Tartrate (Chantix Continuing Month Box) 1 mg tablet Discontinued 1 mg PO TWICE A DAY 56 3 July 27, 2019 1:00am February 21, 2021 9:48am Start: 03-30-2019 End: 02-21-2021 take 1 tablet by mouth once Varenicline Tartrate ([place] tix Starting Month Box) 0.5 mg (11)- 1 mg (42) tablets,dose pack Discontinued 0 PO per package directions 53 0 March 30, 2019 3:00pm February 21, 2021 9:47am PO PER PKG DIR varenicline tart rate (CHANTIX ORAL) Take by mouth. Active varenicline tart rate (CHANTIX ORAL) Take by mouth. 0 Active Comment on above: Take by mouth. Problems Active Problems Problem Classification Problem Date Documented Date Episodic/Chronic Administrative/socia l admission (16 sources) Counseling procedure with explicit context; Translations: [Tobacco abuse counseling] 04-10-2021 Episodic Chronic kidney disease (7 sources) Chronic kidney disease stage 3; Translations: [Stage 3 chronic kidney disease] 12-21-2024 Chronic Chronic kidney disease (1 source) Chronic kidney disease; Translations: [Chronic kidney disease, stage 3a] Onset: 04-24-2025 Chronic obstructive pulmonary disease and bronchiectasis (1 source) Bronchitis; Translations: [Bronchitis, not specified as acute or chronic] Episodic Diabetes mellitus with complications (1 source) Type 2 diabetes mellitus with hyperglycemia; Translations: [Type 2 diabetes mellitus with hyperglycemia] Onset: 04-24-2025 Chronic Diabetes mellitus without complication (8 sources) Diabetes mellitus; Translations: [Type 2 diabetes mellitus without complications] Onset: 12-21-2024 12-21-2024 Chronic Diabetes mellitus without complication (20 sources) Hyperglycemia; Translations: [Hyperglycemia, unspecified] 04-10-2021 Episodic Disorders of lipid metabolism (20 sources) Hypertriglyceridemia; Translations: [Pure hyperglyceridemia] Onset: 04-24-2025 07-29-2022 Chronic Essential hypertension (20 sources) Hypertensive disorder; Translations: [Essential (primary) hypertension] Onset: 08-30-2024 Chronic Malaise and fatigue (12 sources) Fatigue; Translations: [Other fatigue] 01-25-2021 Episodic Other connective tissue disease (12 sources) H/O: musculoskeletal disease; Translations: [Personal history of other diseases of the musculoskeletal system and connective tissue] 02-09-2019 Episodic Other hereditary and degenerative nervous system conditions (12 sources) Restless legs; Translations: [Restless legs syndrome] [...] Chronic Other nutritional; endocrine; and metabolic disorders (7 sources) Obesity caused by energy imbalance; Translations: [Morbid (severe) obesity due to excess calories] 02-08-2019 Chronic Other nutritional; endocrine; and metabolic disorders (2 sources) Morbid (severe) obesity due to excess calories; Translations: [Morbid obesity] 03-03-2023 Chronic Other nutritional; endocrine; and metabolic disorders (7 sources) Overweight; Translations: [Overweight] 12-21-2024 Episodic Other screening for suspected conditions (not mental disorders or infectious disease) (16 sources) Electrocardiogram abnormal; Translations: [Abnormal electrocardiogram [ECG] [EKG]] Onset: 03-31-2025 Episodic Other upper respiratory disease (14 sources) Allergic rhinitis; Translations: [Allergic rhinitis, unspecified] Onset: 12-22-2006 12-22-2006 Chronic Residual codes; unclassified (13 sources) Obstructive sleep apnea syndrome; Translations: [Obstructive sleep apnea (adult) (pediatric)] 02-08-2019 Chronic Residual codes; unclassified (3 sources) Obstructive sleep apnea (adult) (pediatric); Translations: [Obstructive sleep apnea (adult)(pediatric)] Onset: 04-12-2025 03-03-2023 Chronic Residual codes; unclassified (11 sources) Edema of lower extremity; Translations: [Localized edema] 12-12-2021 Episodic Residual codes; unclassified (6 sources) Localized edema; Translations: [Edema] Episodic Residual codes; unclassified (1 source) Edema, unspecified; Translations: [Edema] Episodic Substance-related disorders (20 sources) Nicotine dependence; Translations: [Nicotine dependence, cigarettes, uncomplicated] Onset: 12-22-2006 12-22-2006 Chronic Comment on above: Low dose CT 02/14/19 R ADS 1, repeat due 02/15/20 Current smoker, LDCT ordered for March 2025 Current smoker, LDCT ordered for March 2026 Unclassified (1 source) Acute cough; Translations: [Acute cough] Onset: 09-11-2023 Unclassified (3 sources) Encounter to establish care with new doctor Unclassified (6 sources) Z76.89 - Persons encountering health services in other specified circumstances Past or Other Problems Problem Classification Problem Date Documented Da te Episodic/Chronic Other connective tissue disease (2 sources) Ganglion of joint; Translations: [Ganglion, unspecified site] Onset: 05-16-2013 05-16-2013 Episodic Other connective tissue disease (2 sources) Digital mucous cyst; Translations: [Ganglion, unspecified hand] Onset: 05-31-2013 05-31-2013 Episodic Other skin disorders (2 sources) Ingrowing nail; Translations: [Ingrowing nail] Onset: 07-21-2007 07-21-2007 Episodic Skin and subcutaneous tissue infections (2 sources) Disorder of nail; Translations: [Cellulitis of unspecified toe] Onset: 12-14-2006 12-14-2006 Episodic Results Test Name Value Interpretation Reference Range Facility Endocrinology Visit Reporton 04-24-2025 Endocrinology Visit Report [facility] [address] [place] [address] OFFICE VISIT Date of Service: 04/24/25 MR#: [id number] Acct: [id number] Name: RENZO LAW Rep #: [id number] : 1960 Provider: JORGE LUIS augustin Age/Sex: 64/F Location: [facility] Status: Signed Intake Vital Signs 12/21/24 08:03 04/11/25 07:59 04/24/25 08:35 Height 5 ft 2 in 5 ft 2 in 5 ft 2 in Weight: 161 lb 163 lb BMI 29.4 29.8 BP 144/78 H 151/76 H Blood Pressure Location Lt brachial Lt brachial Position Sitting Sitting Respiration 18 Pulse 75 76 Pulse Source Monitor Monitor Temp 97.4 F L Pulse Oximetry (%) 96 96 Oxygen Delivery Method room air room air Intake Visit Reasons: 4 M FU, 03/23 Chief Complaint: f/u diabetes Cdl Team Truck Driver Required: No Accompanied by: Self Is patient in pain?: Yes (BL Hips ) Pain scale (1-10): 4 Allergies codeine Allergy (Severe, Verified 04/24/25 08:35) Memory Loss amlodipine Adverse Reaction (Mild, Verified 04/24/25 08:35) Edema rosuvastatin Adverse Reaction (Verified 04/24/25 08:35) Heart burn Medications ???Medication ???Instructions ???Recorded ???Confirmed ???Type ascorbate calcium (vitamin C) 500 500 mg PO DAILY 02/08/19 04/24/25 History mg tablet fexofenadine 180 mg tablet 180 mg PO Q24H 02/08/19 04/24/25 H istory (Day Allergy) melatonin 3 mg tablet 3 mg PO HS PRN 04/10/21 04/24/25 H istory blood sugar diagnostic (Accu-Chek #100 ea 12/21/24 04/24/25 Rx Guide test strips) cholecalciferol (vitamin D3) 25 25 mcg PO QDAY 12/21/24 04/24/25 H istory mcg (1,000 unit) capsule fenofibrate 160 mg tablet 160 mg PO QDAY #90 tabs 12/21/24 0 04/24/25 Rx lancets 30 gauge ([place] Chek #100 ea 12/21/24 04/24/25 Rx Lancets) mecobalamin (vitamin B12) 2,500 2,500 mcg PO DAILY 12/21/24 History mcg chewable tablet blood-glucose meter (Accu-Chek #1 ea 12/22/24 04/24/25 Rx Guide Glucose Meter) hydrochlorothiazide 25 mg tablet 25 mg PO DAILY #90 tabs 12/22/24 0 04/24/25 Rx icosapent ethyl 1 gram capsule 2 g (2 x 1 gram) PO BID #360 caps 12/22/24 04/24/25 Rx (Vascepa) metoprolol succinate 50 mg 50 mg PO DAILY #90 tabs 12/22/24 0 04/24/25 Rx tablet,extended release 24 hr metformin 500 mg tablet 1,000 mg (2 x 500 mg) PO BIDWMEAL 01/19/25 04/24/25 Rx #120 tabs albuterol sulfate 90 mcg/actuation 2 puff inhalation Q8H PRN 04/24/25 Rx aerosol inhaler shortness of breath or wheezing #3 ea empagliflozin 10 mg tablet 10 mg PO QAM 04/11/25 04/24/25 His tory (Jardiance) ezetimibe 10 mg tablet (Zetia) 10 mg PO QDAY 04/24/25 04/24/25 Hi story omeprazole 10 mg capsule,delayed 10 mg PO QDAY PRN 04/24/25 5 History release Have you fallen in the past year?: [...] of servings: 1 HPI HPI Chief Complaint: f/u diabetes Details: RENZO LAW, is a 64 F who presents to the office today for evaluation and management of diabetes. A1C today is 7.1%, improved from 12/21/24 at 8.5%. She has gained 3 lbs since that time. Currently taking Jardiance 10 mg once daily and metformin 1 gm BID with food- this is causing her significant diarrhea and nausea. Fastings range from 120-150's, she did have one fasting at 197, this is unusual for her. BP elevated, repeat manual 168/72. She reports she had a cigarette just prior to her appointment. Currently taking HCTZ 25 mg once daily and metoprolol 50 mg once daily. She has high cholesterol with elevated triglycerides. Currently taking ezetimibe 10 mg once daily, fenofibrate 160 mg once daily, and Vascepa 2 gm BID. She has CKD. She has chronic lower back pain and pain to bilat hands a (more content not included)... Normal [facility] Pulmonary Visit Reporton Pulmonary Visit Report [facility] [address] [place] [address] OFFICE VISIT Date of Service: 04/11/25 MR#: [id number] Acct: [id number] Name: RENZO LAW Rep #: [id number] : 1960 Provider: JORGE LUIS Sheriff Age/Sex: 64/F Location: [facility] Status: Signed Assessment and Plan Assessment and Plan (1) MIRANDA (obstructive sleep apnea): Status: Chronic Plan: Stable, she is using and benefiting from Pap therapy. No indication for titration study at this time. Contact the office for any new or worsening symptoms in the meantime. Follow-up in 1 year. (2) Smoking greater than 40 pack years: Status: Chronic Comment: Current smoker, LDCT ordered for March 2026 Plan: Continue to encourage complete smoking cessation. She remains appropriate for repeat LDCT due in 12 months, ordered for March 2026. Orders: Orders Low Dose CT Lung Screening 03/17/26 F17.200 - Nicotine dependence, unspecified, uncomplicated, F17.210 - Nicotine dependence, cigarettes, uncomplicated Medications: New albuterol sulfate 90 mcg/actuation 2 puffs inhalation Q8H PRN 3 ea 3RF shortness of breath or wheezing Plan Details Additional Comments: This note was generated with [employer] dictation software. It may contain incorrect words, spelling, and punctuation that were not noted in checking the note before signing. Follow Up: 1 Year HPI 1 Y FU Chief Complaint: Test results HPI Comments Details: This patient presents to the office today for follow-up of her obstructive sleep apnea complicated by nicotine abuse. She is ambulatory and on room air. She has not been seen in the ED or urgent care for any respiratory illness since her last office visit. She has not required any antibiotics or prednisone for any breathing problems. She is not currently on any maintenance inhalers. She has not recently required the use of her albuterol. She denies any difficulty with shortness of breath. She denies any cough, sputum production or hemoptysis. She denies any wheezing, chest tightness, chest pain or palpitations. She also denies any fever, chills or body aches. She continues to smoke cigarettes. She is currently smoking about 1 pack/day. She wakes up feeling rested and refreshed. She is having occasional dry mouth. She denies morning headaches. She is not requiring naps. She is not nodding off to sleep unintentionally. She denies excessive nocturia. Compliance report for the past 30 days shows 100 % compliance with an average use of 6 hours and 51 minutes per night. Current setting is CPAP 7 cm of water. Residual AHI 2.7 events per hour. Test results personally patient: Low-dose CT lung screen completed on April 03, 2025. No suspicious pulmonary nodule is seen. Stable calcified granuloma in the right upper lobe. Recommendation is to repeat LDCT in 12 months. Intake Vital Signs 04/08/24 08:25 04/11/25 07:59 Height 5 ft 2 in 5 ft 2 in Weight: 161 lb BMI 29.4 BP 144/78 H Blood Pressure Location Lt brachial Position Sitting Respiration 18 Pulse 75 Pulse Source Monitor Temp 97.4 F L Temperature Source Temporal Artery Pulse Oximetry (%) 96 Oxygen Delivery Method room air Intake Visit Reasons: 1 Y FU Chief Complaint: establish care- diabetes DME Vendor: Rashmi Accompanied by: Self Allergies codeine Allergy (Severe, Verified 04/11/25 09:08) Memory Loss amlodipine Adverse Reaction (Mild, Verified 04/11/25 09:08) Edema rosuvastatin Adverse Reaction (Verified 04/11/25 09:08) Heart burn Medications ???Medication ???Instructions ???Recorded ???Confirmed ???Type ascorbate calcium (vitamin C) 500 500 mg PO DAILY 02/08/19 04/11/25 History mg tablet fexofenadine 180 mg tablet 180 mg PO Q24H 02/08/19 04/11/25 H istory (Day Allergy) melatonin 3 mg tablet 3 mg PO HS PRN 04/10/21 04/11/25 H istory blood sugar diagnostic (Accu-Chek #100 ea 12/21/24 04/11/25 Rx Guide test strips) cholecalciferol (vitamin D3) 25 25 mcg PO QDAY 12/21/24 04/11/25 H istory mcg (1,000 unit) capsule fenofibrate 160 mg tablet 160 mg PO QDAY #90 tabs 12/21/24 0 04/11/25 Rx lancets 30 gauge ([place] Chek #100 ea 12/21/24 04/11/25 Rx Lancets) mecobalamin (vitamin B12) 2,500 2,500 mcg PO DAILY 12/21/24 History mcg chewable tablet blood-glucose meter (Accu-Chek #1 ea 12/22/24 04/11/25 Rx Guide Glucose Meter) empagliflozin 10 mg tablet 10 mg PO QAM #90 tabs 12/22/24 Rx (Jardiance) hydrochlorothiazide 25 mg tablet 25 mg PO DAILY #90 tabs 12/22/24 0 04/11/25 Rx icosapent ethyl 1 gram capsule 2 g (2 x 1 gram) PO BID #360 caps 12/22/24 04/11/25 Rx (Vascepa) metoprolol succinate 50 mg 50 mg PO DAILY #90 tabs 12/22/24 0 more content not included)... 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 One or more dose reduction techniques were used (e.g., Automated exposure control, adjustment of the mA and/or kV according to patient size, use of iterative reconstruction technique). REFERENCE LINK: [facility] Lung-RADS RADIATION DOSE SUMMARY: CTDlvol: 3.02 mGy DLP: 93.27 mGycm COMPARISON: Prior study dated April 02, 2024. FINDINGS: PULMONARY NODULES: (Only nodules >3mm are reported) Nodules described below are on series 1 unless otherwise specified. Pulmonary Nodules: No suspicious pulmonary nodule is seen. Stable calcified granuloma in the right upper lobe. Hardware:None Lymph Nodes:No enlarged lymph nodes are seen. Heart and Vasculature:The heart is nonenlarged.Mild atherosclerotic calcification of the aortic arch. Coronary Artery Calcifications: Present Lungs and Airways: Mild emphysematous changes are present. Pleura:Unremarkable Upper Abdomen:Unremarkable Bones:Degenerative changes of the thoracic spine. CT/Low Dose CT Lung Screening IMPRESSION: No suspicious nodules are seen. Coronary artery calcification (CAC) is is present Lung-RADS Category: 2 BENIGN (BASED ON IMAGING FEATURES OR INDOLENT BEHAVIOR). RECOMMEND 12-MONTH SCREENING LDCT. Other Significant Findings: Reading Location: [id number] CC: CEMENT KILN OPERATORIvett Sheriff; Marybeth Mcbride DO Room Service Associate: Signed Normal [facility] Bone density reportOrdered B y: Luis Serrano on 03-22-2025 Study report Skeletal system DXA [facility] [address] [place], [place] [address] Dexa Bone Density Study MR#: [id number] Acct: [id number] Name: RENZO LAW Rep #: [id number] : 1960 F 64 From: Garcia Serrano MD PCP: Marybeth Mcbride DO Status: REG CLI Study:Dexa Bone Density Study Date of Exam: 03/22/25 Exam# [id number] Ordering Dr: Pérez Mcbride [facility] PROCEDURE: DEXA BONE DENSITY STUDY 03/22/2025 REASON FOR EXAM: F, age 64 y/o . Postmenopausal. TECHNIQUE: DEXA BONE DENSITY STUDY COMPARISON: None FINDINGS: BMD and T-SCORES Lumbar spine: 1.324 g/cm2, T-score 2.5 Levels: L1 through L4 Left femoral neck: 0.753 g/cm2, T-score -0.9 Femoral neck comparison data not recommended for monitoring change. Left total hip: 1.007 g/cm2, T-score 0.5 Right femoral neck: 0.694 g/cm2, T-score -1.4 Femoral neck comparison data not recommended for monitoring change. Right total hip: 0.957 g/cm2, T-score 0.1 The World Health Organization has defined the following categories based on bonedensity: Normal bone density: T-score equal to or greater than -1.0 Osteopenia: T-score between -1.0 and -2.5 Osteoporosis: T-score equal to or less than -2.5 The patient does meet the pharmacological treatment recommendations for prevention of osteoporosis. BD/Dexa Bone Density Study IMPRESSION: OSTEOPENIA. Recommend follow-up as clinically warranted. Reading Location: [id number] CC: Marybeth Mcbride DO ~ Room Service Associate: Signed [facility] Breast imaging reportOrdered By: Scarlett Rebolledo on 03-22-2025 Study report [facility] [address] [place] [address] SCRN MAMM (CAD)W/JIMENA BILAT MR#: [id number] Acct: [id number] Name: RENZO LAW Rep #: [id number] : 1960 F 64 From: Jessica Rebolledo MD PCP: Marybeth Mcbride DO Status: REG CLI Study:SCRN MAMM (CAD)W/JIMENA BILAT Date of Exa m: 03/22/25 Exam# [id number] Ordering Dr: Pérez Mcbride [facility] DO EXAM: SCRN MAMM (CAD)W/JIMENA BILAT DATE: 03/22/2025 CLINICAL HISTORY: F, Age 64 y/o , SCREENING TECHNIQUE: SCRN MAMM (CAD)W/JIMENA BILAT COMPARISON: No priors available FINDINGS: TISSUE DENSITY: The breasts are almost entirely fatty. Bilateral Breast Mammographic Findings: No significant masses, calcifications or other abnormalities are identified. BI/SCRN MAMM (CAD)W/JIMENA BILAT IMPRESSION: There is no mammographic evidence of malignancy. OVERALL FINAL ASSESSMENT BI-RADS 1: NEGATIVE. RECOMMENDATION: Routine annual follow-up in 1 Year A letter with findings and recommendations will be mailed to the patient. Reading Location: [facility] CC: Marybeth Mcbride DO ~ Room Service Associate: Signed [facility] Dexa Bone Density Studyon Dexa Bone Density Study [facility] [address] [place] [address] Dexa Bone Density Study MR#: [id number] Acct: [id number] Name: RENZO LAW Rep #: [id number] : 1960 F 64 From: Luis sanchez MD PCP: Marybeth Mcbride DO Status: REG CLI Study: Dexa Bone Density Study Date of Exam: 03/22/25 Exam# [id number] Ordering Dr: Marybeth Mcbride [facility] D O PROCEDURE: DEXA BONE DENSITY STUDY 03/22/2025 REASON FOR EXAM: F, age 64 y/o . Postmenopausal. TECHNIQUE: DEXA BONE DENSITY STUDY COMPARISON: None FINDINGS: BMD and T-SCORES Lumbar spine: 1.324 g/cm2, T-score 2.5 Levels: L1 through L4 Left femoral neck: 0.753 g/cm2, T-score -0.9 Femoral neck comparison data not recommended for monitoring change. Left total hip: 1.007 g/cm2, T-score 0.5 Right femoral neck: 0.694 g/cm2, T-score -1.4 Femoral neck comparison data not recommended for monitoring change. Right total hip: 0.957 g/cm2, T-score 0.1 The World Health Organization has defined the following categories based on bone density: Normal bone density: T-score equal to or greater than -1.0 Osteopenia: T-score between -1.0 and -2.5 Osteoporosis: T-score equal to or less than -2.5 The patient does meet the pharmacological treatment recommendations for prevention of osteoporosis. BD/Dexa Bone Density Study IMPRESSION: OSTEOPENIA. Recommend follow-up as clinically warranted. Reading Location: [id number] CC: Marybeth Mcbride DO Room Service Associate: Signed Normal [facility] Hand Min 3 Viewson Hand Min 3 Views [facility] [address] [place] [address] Hand Min 3 Views MR#: [id number] Acct: [id number] Name: RENZO LAW Rep #: [id number] : 1960 F 64 From: Chel waters MD PCP: Marybeth Mcbride DO Status: REG CLI Study: Hand Min 3 Views Date of Exam: 03/22/25 Exam# [id number] Ordering Dr: Marybeth Mcbride [facility] Heriberto O PROCEDURE: HAND MIN 3 VIEWS 03/22/2025 REASON FOR EXAM: PAIN TECHNIQUE: HAND MIN 3 VIEWS COMPARISON: None. FINDINGS: Moderate to severe degenerative joint disease of the 1st carpometacarpal joint. Moderate degenerative joint disease of the 1st metacarpophalangeal joint. Mild osteopenia of the visualized bones. Degenerative joint disease. No fracture or dislocation is seen. No lytic or blastic bone lesion is noted. RAD/Hand Min 3 Views IMPRESSION: Degenerative joint disease, more prominent in the 1st carpometacarpal joint. Reading Location: [place] [address] CC: Marybeth Mcbride DO Room Service Associate: Signed Normal [facility] SCRN MAMM (CAD)W/JIMENA BILATo n 03-22-2025 SCRN MAMM (CAD)W/JIMENA BILAT [facility] [address] [place] [address] SCRN MAMM (CAD)W/JIMENA BILAT MR#: [id number] Acct: [id number] Name: RENZO LAW Rep #: [id number] : 1960 F 64 From: Scarlett Rebolledo MD PCP: Marybeth Mcbride DO Status: REG CLI Study: SCRN MAMM (CAD)W/JIMENA BILAT Date of Exam: 02/08 Exam# [id number] Ordering Dr: Marybeth Mcbride [facility] D O EXAM: SCRN MAMM (CAD)W/JIMENA BILAT DATE: 03/22/2025 CLINICAL HISTORY: F, Age 64 y/o , SCREENING TECHNIQUE: SCRN MAMM (CAD)W/JIMENA BILAT COMPARISON: No priors available FINDINGS: TISSUE DENSITY: The breasts are almost entirely fatty. Bilateral Breast Mammographic Findings: No significant masses, calcifications or other abnormalities are identified. BI/SCRN MAMM (CAD)W/JIMENA BILAT IMPRESSION: There is no mammographic evidence of malignancy. OVERALL FINAL ASSESSMENT BI-RADS 1: NEGATIVE. RECOMMENDATION: Routine annual follow-up in 1 Year A letter with findings and recommendations will be mailed to the patient. Reading Location: [id number] CC: Marybeth Mcbride DO Room Service Associate: Signed Normal [facility] Endocrinology Visit Reporton 12-21-2024 Endocrinology Visit Report [facility] 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 Accompanied by: Self Is patient in pain?: Yes (BL Hips ) Pain scale (1-10): 4 Allergies codeine Allergy (Severe, Verified 12/21/24 08:09) Memory Loss amlodipine Adverse Reaction (Mild, Verified 12/21/24 08:09) Edema rosuvastatin Adverse Reaction (Verified 12/21/24 08:09) Heart burn Medications ???Medication ???Instructions ???Recorded ???Confirmed ???Type ascorbate calcium (vitamin C) 500 500 mg PO DAILY 06/25/19 05/07/25 History mg tablet fexofenadine 180 mg tablet 180 mg PO Q24H 02/08/12/21/24 H istory (Day Allergy) melatonin 3 mg [...] 12/21/24 0 12/21/24 Rx lancets 30 gauge ([place] Chek #100 ea 12/21/24 12/21/24 Rx Lancets) [...] any a (more content not included)... Normal [facility] - Hematology and Cell countsOrdered By: Layla Esposito on 12-21-2024 HbA1c (Bld) [Mass fraction] 8.5 % High 4.2-6.3 [facility] Basic Metabolic Profile (BMP )on 09-03-2024 BUN/CRE 18.2 RATIO Normal 10-20 [facility] Comment on above: Performed By: #### L 238.0146, L500.8194 #### [facility] [address] [place], [address] CA,Total 9.4 mg/dL Normal 8.5-10.1 [facility] Comment on above: Performed By: #### L 501.9985, L500.2500 #### [facility] [address] [place], [address] Chloride [Moles/Vol] 103 mmol/L Normal 98-107 [facility] Comment on above: Performed By: #### L 501.9985, L500.2500 #### [facility] [address] [place], [address] CO2 [Moles/Vol] 30.0 mmol/L Normal 21.0-32.0 [facility] Comment on above: Performed By: #### L 501.9985, L500.2500 #### [facility] [address] [place], [address] Creatinine [Mass/Vol] 1.10 mg/dL High 0.55-1.02 [facility] Comment on above: Result Comment: The validity of the calculated GFR GFRAA in patients over 70 years has not been determined. Clinical correlation is essential. Performed By: #### L 501.9985, L500.2500 #### [facility] [address] [place], [address] EST GFR - AA 64 mL/min Normal >60 [facility] Comment on above: Result Comment: Afri can Belgian GFR Calc Performed By: #### L 501.9985, L500.2500 #### [facility] [address] [place], [address] GAP 6 Normal 5-15 [facility] Comment on above: Performed By: #### L 501.9985, L500.2500 #### [facility] [address] [place], [address] GFR/1.73 sq M.predicted among non-blacks MDRD (S/P/Bld) [Vol rate/Area] 53 mL/min/{1.73_m2} Low >60 [facility] Comment on above: Result Comment: Non- GFR Calc Performed By: #### L 501.9985, L500.2500 #### [facility] [address] [place], [address] Glucose [Mass/Vol] 292 mg/dL High 74-106 [facility] Comment on above: Result Comment: Gluc ose result greater than or equal to 200 mg/dL suggests DIABETES MELLITUS per A.D.A. criteria. Performed By: #### L 501.9985, L500.2500 #### [facility] [address] [place], [address] Potassium [Moles/Vol] 3.5 mmol/L Normal 3.5-5.1 [facility] Comment on above: Performed By: #### L 501.9985, L500.2500 #### [facility] [address] [place], [address] Sodium [Moles/Vol] 139 mmol/L Normal 136-145 [facility] Comment on above: Performed By: #### L 501.9985, L500.2500 #### [facility] [address] [place], [address] Urea nitrogen [Mass/Vol] 20 mg/dL High 03-03 [facility] Comment on above: Performed By: #### L 501.9985, L500.2500 #### [facility] [address] [place], [address] Hemoglobin A1con 09-03-2024 HbA1c (Bld) [Mass fraction] 9.9 % High 3.8-5.6 [facility] Comment on above: Result Comment: Norm al < 5.7 % Prediabetic 5.7 - 6.4 % Diabetic >or= 6.5 % Please note range changes. Performed By: #### L 501.9985, L500.2500 #### [facility] [address] [place], [address] CBC-Complete Blood Cnt No Di ffon 07-27-2024 Erythrocyte distribution width (RBC) [Ratio] 12.3 % Normal 11.6-14.6 [facility] Comment on above: Order Comment: PER P SIM DOMINGO ORDER Performed By: #### L 500.4050, L500.4100, L100.0500, L501.9985 #### [facility] [address] [place], [address] Hematocrit (Bld) [Volume fraction] 45.6 % Normal 37-47 [facility] Comment on above: Order Comment: PER P SIM DOMINGO ORDER Performed By: #### L 500.4050, L500.4100, L100.0500, L501.9985 #### [facility] [address] [place], [address] Hemoglobin (Bld) [Mass/Vol] 15.6 g/dL High 12.0-15.0 [facility] Comment on above: Order Comment: PER P SIM DOMINGO ORDER Performed By: #### L 500.4050, L500.4100, L100.0500, L501.9985 #### [facility] [address] [place], [address] MCH (RBC) [Entitic mass] 29.3 pg Normal 27.0-32.0 [facility] Comment on above: Order Comment: PER P SIM DOMINGO ORDER Performed By: #### L 500.4050, L500.4100, L100.0500, L501.9985 #### [facility] [address] [place], [address] MCHC (RBC) [Mass/Vol] 34.2 g/dL Normal 32-36 [facility] Comment on above: Order Comment: PER P SIM DOMINGO ORDER Performed By: #### L 500.4050, L500.4100, L100.0500, L501.9985 #### [facility] [address] [place], [address] MCV (RBC) [Entitic vol] 85.7 fL Normal 81-99 [facility] Comment on above: Order Comment: PER P SIM DOMINGO ORDER Performed By: #### L 500.4050, L500.4100, L100.0500, L501.9985 #### [facility] [address] [place], [address] Platelet mean volume (Bld) [Entitic vol] 11.4 fL Normal 6.2-12.0 [facility] Comment on above: Order Comment: PER P SIM DOMINGO ORDER Performed By: #### L 500.4050, L500.4100, L100.0500, L501.9985 #### [facility] [address] [place], [address] Platelets (Bld) [#/Vol] 189 10*3/uL Normal 150-450 [facility] Comment on above: Order Comment: PER P SIM DOMINGO ORDER Performed By: #### L 500.4050, L500.4100, L100.0500, L501.9985 #### [facility] [address] [place], [address] RBC (Bld) [#/Vol] 5.32 10*6/uL Normal 4.2-5.4 [facility] Comment on above: Order Comment: PER P SIM DOMINGO ORDER Performed By: #### L 500.4050, L500.4100, L100.0500, L501.9985 #### [facility] [address] [place], [address] RDW SD 38.5 fl Normal 35.1-43.9 [facility] Comment on above: Order Comment: PER P SIM DOMINGO ORDER Performed By: #### L 500.4050, L500.4100, L100.0500, L501.9985 #### [facility] [address] [place], [address] WBC (Bld) [#/Vol] 9.0 10*3/uL Normal 4.4-11.0 [facility] Comment on above: Order Comment: PER P T-ALEXANDER DOMINGO ORDER Performed By: #### L 500.4050, L500.4100, L100.0500, L501.9985 #### [facility] [address] [place], [address] Cardiology Visit Reporton Cardiology Visit Report [facility] [address] [place], [place] [address] OFFICE VISIT Date of Service: 07/27/24 MR#: [id number] Acct: [id number] Name: RENZO LAW Rep #: [id number] : 1960 Provider: Dr. 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 Normal [facility] Comprehensive Metabolic Prof ilon 07-27-2024 Albumin [Mass/Vol] 4.0 g/dL Normal 3.2-5.0 [facility] Comment on above: Order Comment: PER Alberto DOMINGO ORDER Performed By: #### L 500.4050, L500.4100, L100.0500, L501.9985 ####[facility] [address] [place], [place], [address] Albumin/Globulin [Mass ratio] 1.2 {ratio} Normal 0.9-2.4 [facility] Comment on above: Order Comment: PER Alberto DOMINGO ORDER Performed By: #### L 500.4050, L500.4100, L100.0500, L501.9985 ####[facility] [address] [place], [address] ALK P 117 U/L Normal 45-117 [facility] Comment on above: Order Comment: PER P T-ALEXANDER DOMINGO ORDER Performed By: #### L 500.4050, L500.4100, L100.0500, L501.9985 ####[facility] [address] [place], [address] ALT [Catalytic activity/Vol] 30 U/L Normal 13-56 [facility] Comment on above: Order Comment: PER P SIM DOMINGO ORDER Performed By: #### L 500.4050, L500.4100, L100.0500, L501.9985 ####[facility] [address] [place], [address] AST [Catalytic activity/Vol] 17 U/L Normal 15-37 [facility] Comment on above: Order Comment: PER P SIM DOMINGO ORDER Performed By: #### L 500.4050, L500.4100, L100.0500, L501.9985 ####[facility] [address] [place], [address] Bilirubin [Mass/Vol] 0.50 mg/dL Normal 0.20-1.00 [facility] Comment on above: Order Comment: PER P SIM DOMINGO ORDER Result Comment: For patients on eltrombopag therapy, use of Dimension Man TBIL is not recommended. Performed By: #### L 500.4050, L500.4100, L100.0500, L501.9985 ####[facility] [address] [place], [address] BUN/CRE 17.5 RATIO Normal 10-20 [facility] Comment on above: Order Comment: PER P SIM DOMINGO ORDER Performed By: #### L 500.4050, L500.4100, L100.0500, L501.9985 ####[facility] [address] [place], [address] CA,Total 9.4 mg/dL Normal 8.5-10.1 [facility] Comment on above: Order Comment: PER Alberto DOMINGO ORDER Performed By: #### L 500.4050, L500.4100, L100.0500, L501.9985 ####[facility] [address] [place], [address] Chloride [Moles/Vol] 98 mmol/L Normal 98-107 [facility] Comment on above: Order Comment: PER Alberto DOMINGO ORDER Performed By: #### L 500.4050, L500.4100, L100.0500, L501.9985 ####[facility] [address] [place], [address] CO2 [Moles/Vol] 29.0 mmol/L Normal 21.0-32.0 [facility] Comment on above: Order Comment: PER Alberto DOMINGO ORDER Performed By: #### L 500.4050, L500.4100, L100.0500, L501.9985 ####[facility] [address] [place], [address] Creatinine [Mass/Vol] 1.03 mg/dL High 0.55-1.02 [facility] Comment on above: Order Comment: PER Alberto DOMINGO ORDER Result Comment: The validity of the calculated GFR GFRAA in patients over 70 years has not been determined. Clinical correlation is essential. Performed By: #### L 500.4050, L500.4100, L100.0500, L501.9985 ####[facility] [address] [place], [address] EST GFR - AA 69 mL/min Normal >60 [facility] Comment on above: Order Comment: PER Alberto DOMINGO ORDER Result Comment: Afri can Belgian GFR Calc Performed By: #### L 500.4050, L500.4100, L100.0500, L501.9985 ####[facility] [address] [place], [address] GAP 6 Normal 5-15 [facility] Comment on above: Order Comment: TELLO DOMINGO ORDER Performed By: #### L 500.4050, L500.4100, L100.0500, L501.9985 ####[facility] [address] [place], [address] GFR/1.73 sq M.predicted among non-blacks MDRD (S/P/Bld) [Vol rate/Area] 57 mL/min/{1.73_m2} Low >60 [facility] Comment on above: Order Comment: PER Alberto DOMINGO ORDER Result Comment: Non- GFR Calc Performed By: #### L 500.4050, L500.4100, L100.0500, L501.9985 ####[facility] [address] [place], [address] Globulin (S) [Mass/Vol] 3.3 g/dL Normal 2.2-4.2 [facility] Comment on above: Order Comment: PER Alberto DOMINGO ORDER Performed By: #### L 500.4050, L500.4100, L100.0500, [id number] ####[facility] [address] [place], [address] Glucose [Mass/Vol] 368 mg/dL High 74-106 [facility] Comment on above: Order Comment: PER Alberto DOMINGO ORDER Result Comment: Gluc ose result greater than or equal to 200 mg/dL suggests DIABETES MELLITUS per A.D.A. criteria. Performed By: #### L 500.4050, L500.4100, L100.0500, [id number] ####[facility] [address] [place], [address] Potassium [Moles/Vol] 4.1 mmol/L Normal 3.5-5.1 [facility] Comment on above: Order Comment: PER Alberto DOMINGO ORDER Performed By: #### L 500.4050, L500.4100, L100.0500, [id number] ####[facility] [address] [place], [address] Sodium [Moles/Vol] 133 mmol/L Low 136-145 [facility] Comment on above: Order Comment: PER Alberto DOMINGO ORDER Performed By: #### L 500.4050, L500.4100, L100.0500, [id number] ####[facility] [address] [place], [address] T PROT 7.3 g/dL Normal 6.4-8.2 [facility] Comment on above: Order Comment: PER Alberto DOMINGO ORDER Performed By: #### L 500.4050, L500.4100, L100.0500, [id number] ####[facility] [address] [place], [address] Urea nitrogen [Mass/Vol] 18 mg/dL Normal 7-18 [facility] Comment on above: Order Comment: PER Alberto DOMINGO ORDER Performed By: #### L 500.4050, L500.4100, L100.0500, [id number] ####[facility] [address] [place], [address] Hemoglobin A1con 07-27-2024 HbA1c (Bld) [Mass fraction] 10.4 % High 3.8-5.6 [facility] Comment on above: Order Comment: PER Alberto DOMINGO ORDER Result Comment: Norm al < 5.7 % Prediabetic 5.7 - 6.4 % Diabetic >or= 6.5 % Please note range changes. Performed By: #### L 500.4050, L500.4100, L100.0500, [id number] ####[facility] [address] [place], [address] Lipid Profileon 07-27-2024 Cholesterol [Mass/Vol] 211 mg/dL High 200 [facility] Comment on above: Order Comment: PER Alberto DOMINGO ORDER Result Comment: <200 mg/dL Desirable 200-240 mg/dL Borderline >240 mg/dL High Risk Performed By: #### L 500.4050, L500.4100, L100.0500, [id number] ####[facility] [address] [place], [address] Cholesterol in HDL [Mass/Vol] 42 mg/dL Normal [facility] Comment on above: Order Comment: PER Alberto DOMINGO ORDER Result Comment: The drugs N-Acetylcysteine and Metamizole may falsely depress this assay. Reference Range HDL <40 mg/dL Low HDL Cholesterol HDL >or= 60 mg/dL High HDL Cholesterol Performed By: #### L 500.4050, L500.4100, L100.0500, [id number] ####[facility] [address] [place], [address] LDL TNP Normal 0-130 [facility] Comment on above: Order Comment: PER Alberto DOMINGO ORDER Performed By: #### L 500.4050, L500.4100, L100.0500, [id number] ####[facility] [address] [place], [address] Triglyceride [Mass/Vol] 616 mg/dL High [facility] Comment on above: Order Comment: PER [...] By: #### L 500.4050, L500.4100, L100.0500, [id number] ####[facility] [address] [place], [address] VLDL TNP Normal 5-40 [facility] Comment on above: Order Comment: TELLO DOMINGO ORDER Performed By: #### L 500.4050, L500.4100, L100.0500, L501.9937 ####[facility] [address] [place], [address] CNOVon 09-11-2023 CNOV Office Visit (UCTR ) -------- RENZO LAW ([id number]) 1960 F Date Time Provider Department 09/11/23 8:00 AM GENEVA MELENDEZ [facility] During your visit today, we recorded the following information about you: Temperature Pulse Respiration Blood pressure 97.9 degrees 77/minute 22/minute 119/74 Weight 71.7 kg Geneva Melendez PA-C 09/11/2023 8:54 AM Signed This note was created using Ometricsriter. Subjective Renzo Law is a 62 year [...] NAPROSYN (NAPROXEN) (more content not included)... Normal [facility] XR CHEST 2V FRONTAL/LATon XR CHEST 2V [...] and shoulders. IMPRESSION: No acute radiographic abnormality. Room Service Associate: PSCB Transcribe Date/Time: Sep 11 2023 8:32A Dictated by : JM GO MD This examination was interpreted and the report reviewed and electronically signed by: JM GO MD on Sep 11 2023 8:33AM EST [id number] Normal [facility] XR Chest PA and Lateralon IMPRESSION: No acute radiographic abnormality. Room Service Associate: PSC Transcribe Date/Time: Sep 11 2023 8:32A Dictated [...] spine and shoulders. DIVISION OF RADIOLOGY Provider, [facility] - 09/11/2023 * * *Final Report* [...] shoulders. IMPRESSION IMPRESSION: No acute radiographic abnormality. Room Service Associate: JAMARCUS Transcribe Date/Time: Sep 11 2023 8:32A Dictated by : JM GO MD This examination was interpreted and the report reviewed and electronically signed by: JM GO MD on Sep 11 2023 8:33AM EST [facility] Radiology Study observation (narrative) [facility] XR Chest PA and LateralOrder ed By: Ccf Provider on 09-11-2023 [facility] Basophil percentageOrdered B y: Loly Cervantes on 07-25-2023 Bilirubin [Mass/Vol] 0.50 mg/dL 0.20-1.00 [facility] Comment on above: For patients on eltr ombopag therapy, use of Dimension Man TBIL is not recommended. Cholesterol [Mass/Vol] 195 mg/dL <200 [facility] Comment on above: <200 mg/dL Desirable 200-240 mg/dL Borderline >240 mg/dL High Risk Protein [Mass/Vol] 7.3 g/dL 6.4-8.2 [facility] Triglyceride [Mass/Vol] 512 mg/dL <199 [facility] Comment on above: The drugs N-Acetylcy [...] on 07-25-2023 Bilirubin.direct [Mass/Vol] 0.11 mg/dL 0.00-0.30 [facility] Laboratory - Chemistry and C hemistry - challengeOrdered By: Loly Cervantes on 07-25-2023 ALP [Catalytic activity/Vol] 108 U/L 45-117 [facility] ALT [Catalytic activity/Vol] 30 U/L 13-56 [facility] Globulin (S) [Mass/Vol] 3.4 g/dL 2.2-4.2 [facility] Serum or plasma albumin ladonna urement (mass/volume)Ordered By: Loly Cervantes on 07-25-2023 Albumin [Mass/Vol] 3.9 g/dL 3.2-5.0 [facility] Serum or plasma cholesterol in HDL measurement (mass/volume)Ordered By: Loly Cervantes on 07-25-2023 Cholesterol in HDL [Mass/Vol] 39 mg/dL >40 [facility] Comment on above: The drugs N-Acetylcy steine and Metamizole may falsely depress this assay. Reference Range HDL <40 mg/dL Low HDL Cholesterol HDL >or= 60 mg/dL High HDL Cholesterol Serum or plasma cholesterol in VLDL measurement (mass/volume)Ordered By: Loly Cervantes on 07-25-2023 Cholesterol in VLDL [Mass/Vol] [facility] Comment on above: Test not performed Serum or plasma low density lipoprotein (LDL) cholesterol measurement (mass/volume)Ordered By: Loly Cervantes on 07-25-2023 Cholesterol in LDL [Mass/Vol] [facility] Comment on above: Test not performed Thin prep Papanicolaou smear with manual screeningOrdered By: Loly Cervantes on 07-25-2023 Thin prep Papanicolaou smear with manual screening 16 U/L 15-37 [facility] Basophil percentageOrdered B y: Loly Cervantes on 03-28-2023 Bilirubin [Mass/Vol] 0.40 mg/dL 0.20-1.00 [facility] Comment on above: For patients on eltr ombopag therapy, use of Dimension Man TBIL is not recommended. Cholesterol [Mass/Vol] 163 mg/dL <200 [facility] Comment on above: <200 mg/dL Desirable 200-240 mg/dL Borderline >240 mg/dL High Risk Protein [Mass/Vol] 7.2 g/dL 6.4-8.2 [facility] Triglyceride [Mass/Vol] 448 mg/dL <199 [facility] Comment on above: The drugs N-Acetylcy [...] on 03-28-2023 Bilirubin.direct [Mass/Vol] 0.12 mg/dL 0.00-0.30 [facility] Laboratory - Chemistry and C hemistry - challengeOrdered By: Loly Cervantes on 03-28-2023 ALP [Catalytic activity/Vol] 94 U/L 45-117 [facility] ALT [Catalytic activity/Vol] 27 U/L 13-56 [facility] Globulin (S) [Mass/Vol] 3.5 g/dL 2.2-4.2 [facility] Serum or plasma albumin ladonna urement (mass/volume)Ordered By: Loly Cervantes on 03-28-2023 Albumin [Mass/Vol] 3.7 g/dL 3.2-5.0 [facility] Serum or plasma cholesterol in HDL measurement (mass/volume)Ordered By: Loly Cervantes on 03-28-2023 Cholesterol in HDL [Mass/Vol] 38 mg/dL >40 [facility] Comment on above: The drugs N-Acetylcy steine and Metamizole may falsely depress this assay. Reference Range HDL <40 mg/dL Low HDL Cholesterol HDL >or= 60 mg/dL High HDL Cholesterol Serum or plasma cholesterol in VLDL measurement (mass/volume)Ordered By: Loly Cervantes on 03-28-2023 Cholesterol in VLDL [Mass/Vol] [facility] Comment on above: Test not performed Serum or plasma low density lipoprotein (LDL) cholesterol measurement (mass/volume)Ordered By: Loly Cervantes on 03-28-2023 Cholesterol in LDL [Mass/Vol] [facility] Comment on above: Test not performed Thin prep Papanicolaou smear with manual screeningOrdered By: Loly Cervantes on 03-28-2023 Thin prep Papanicolaou smear with manual screening 14 U/L 15-37 [facility] CNOVon 01-17-2023 CNOV Office Visit ([facility] ) -------- RENZO LAW ([id number]) 1960 F Date Time Provider Department 01/17/23 8:45 AM GENEVA MELENDEZ [facility] During your visit today, we recorded the following information about you: Temperature Pulse Respiration Blood pressure 98.4 degrees 83/minute 20/minute 126/78 Weight 80.3 kg Geneva Melendez PA-C 01/17/2023 9:10 AM Signed This note was created using Ometricsriter. Subjective Renzo Law is a 62 year [...] present. Mouth/Throa (more content not included)... [facility] 2021 Bilirubin [Mass/Vol] 0.40 mg/dL 0.20-1.00 [facility] Work Phone: Comment on above: For patients on eltr ombopag therapy, use of Dimension Man TBIL is not recommended. Cholesterol [Mass/Vol] 232 mg/dL <200 [facility] Work Phone: Comment on above: <200 mg/dL Desirable 200-240 mg/dL Borderline >240 mg/dL High Risk Protein [Mass/Vol] 7.3 g/dL 6.4-8.2 [facility] Work Phone: Triglyceride [Mass/Vol] 748 mg/dL <199 [facility] Work Phone: Comment on above: The [...] bilirubinon 2 Bilirubin.direct [Mass/Vol] 0.11 mg/dL 0.00-0.30 [facility] Work Phone: Laboratory - Chemistry and C hemistry - challengeon 07-26-2022 ALP [Catalytic activity/Vol] 94 U/L 45-117 [facility] Work Phone: ALT [Catalytic activity/Vol] 33 U/L 13-56 [facility] Work Phone: [phone] Globulin (S) [Mass/Vol] 3.4 g/dL 2.2-4.2 [facility] Work Phone: Serum or plasma albumin ladonna urement (mass/volume)on 07-26-2022 Albumin [Mass/Vol] 3.9 g/dL 3.2-5.0 [facility] Work Phone: Serum or plasma cholesterol in HDL measurement (mass/volume)on 07-26-2022 Cholesterol in HDL [Mass/Vol] 35 mg/dL >40 [facility] Work Phone: Comment on above: The drugs N-Acetylcy steine and Metamizole may falsely depress this assay. Reference Range HDL <40 mg/dL Low HDL Cholesterol HDL >or= 60 mg/dL High HDL Cholesterol Serum or plasma cholesterol in VLDL measurement (mass/volume)on 07-26-2022 Cholesterol in VLDL [Mass/Vol] [facility] Work Phone: Comment on above: Test not performed Serum or plasma low density lipoprotein (LDL) cholesterol measurement (mass/volume)on 07-26-2022 Cholesterol in LDL [Mass/Vol] [facility] Work Phone: Comment on above: Test not performed Thin prep Papanicolaou smear with manual screeningon 07-26-2022 Thin prep Papanicolaou smear with manual screening 18 U/L 15-37 [facility] Work Phone: Basophil percentageon 2021 Chloride [Moles/Vol] 106 mmol/L 98-107 [facility] Work Phone: [phone] Glucose [Mass/Vol] 256 mg/dL 74-106 [facility] Work Phone: [phone] Comment on above: Glucose result great er than or equal to 200 mg/dLsuggests DIABETES MELLITUS per A.D.A. criteria. Potassium [Moles/Vol] 3.8 mmol/L 3.5-5.1 [facility] Work Phone: Sodium [Moles/Vol] 138 mmol/L 136-145 [facility] Work Phone: Laboratory - Chemistry and C hemistry - challengeon 01-25-2022 CO2 [Moles/Vol] 27.0 mmol/L 21.0-32.0 [facility] Work Phone: Urea nitrogen/Creatinine [Mass ratio] 15.9 mg/mg 10-20 [facility] Work Phone: No Panel Informationon 01-25 Estimated GFR (MDRD) Amer 67 mL/min >60 [facility] Work Phone: Comment on above: GFR Calc Estimated GFR (MDRD) Non-Af Amer 55 mL/min >60 [facility] Work Phone: Comment on above: Non- GFR Calc Serum or plasma calcium ladonna urement (mass/volume)on 01-25-2022 Calcium [Mass/Vol] 8.7 mg/dL 8.5-10.1 [facility] Work Phone: Serum or plasma creatinine m easurement (mass/volume)on 01-25-2022 Creatinine [Mass/Vol] 1.07 mg/dL 0.55-1.02 [facility] Work Phone: Comment on above: The validity of the calculated GFR & GFRAA in patients over 70 years has not been determined. Clinical correlation is essential. Serum or plasma urea nitroge n measurement (mass/volume)on 01-25-2022 Urea nitrogen [Mass/Vol] 17 mg/dL 7-18 [facility] Work Phone: Thin prep Papanicolaou smear with manual screeningon 01-25-2022 Thin prep Papanicolaou smear with manual screening 5 5-15 [facility] Work Phone: Basophil percentageon 2021 Chloride [Moles/Vol] 105 mmol/L 98-107 [facility] Work Phone: Glucose [Mass/Vol] 216 mg/dL 74-106 [facility] Work Phone: Comment on above: Glucose result great er than or equal to 200 mg/dLsuggests DIABETES MELLITUS per A.D.A. criteria. Potassium [Moles/Vol] 3.8 mmol/L 3.5-5.1 [facility] Work Phone: Sodium [Moles/Vol] 140 mmol/L 136-145 [facility] Work Phone: Laboratory - Chemistry and C hemistry - challengeon 01-03-2022 CO2 [Moles/Vol] 27.0 mmol/L 21.0-32.0 [facility] Work Phone: Urea nitrogen/Creatinine [Mass ratio] 21.9 mg/mg - [facility] Work Phone: No Panel Informationon 01-03 Estimated GFR (MDRD) Amer 68 mL/min >60 [facility] Work Phone: Comment on above: GFR Calc Estimated GFR (MDRD) Non-Af Amer 56 mL/min >60 [facility] Work Phone: Comment on above: Non- GFR Calc Serum or plasma calcium ladonna urement (mass/volume)on 01-03-2022 Calcium [Mass/Vol] 8.8 mg/dL 8.5-10.1 [facility] Work Phone: Serum or plasma creatinine m easurement (mass/volume)on 01-03-2022 Creatinine [Mass/Vol] 1.05 mg/dL 0.55-1.02 [facility] Work Phone: Comment on above: The validity of the calculated GFR & GFRAA in patients over 70 years has not been determined. Clinical correlation is essential. Serum or plasma urea nitroge n measurement (mass/volume)on 01-03-2022 Urea nitrogen [Mass/Vol] 23 mg/dL 7-18 [facility] Work Phone: Thin prep Papanicolaou smear with manual screeningon 01-03-2022 Thin prep Papanicolaou smear with manual screening 8 5-15 [facility] Work Phone: Absolute lymphocyte counton 11-20-2021 Lymphocytes Auto (Unsp spec) [#/Vol] 2.44 10*3/uL 0.83-4.51 [facility] Work Phone: Basophil percentageon 2021 Basophils/100 WBC (Bld) 0.5 % 0-1 [facility] Work Phone: Chloride [Moles/Vol] 109 mmol/L 98-107 [facility] Work Phone: Eosinophils/100 WBC (Bld) 3.2 % 0-5 [facility] Work Phone: Glucose [Mass/Vol] 164 mg/dL 74-106 [facility] Work Phone: Comment on above: Fasting Glucose resu lt greater than or equal to 126 mg/dL suggests DIABETES MELLITUS per A.D.A. criteria. Neutrophils (Bld) [#/Vol] 4.9 10*3/uL 2.0-7.7 [facility] Work Phone: Neutrophils/100 WBC (Bld) 58.9 % 47-70 [facility] Work Phone: Potassium [Moles/Vol] 3.6 mmol/L 3.5-5.1 [facility] Work Phone: Sodium [Moles/Vol] 141 mmol/L 136-145 [facility] Work Phone: WBC (Bld) [#/Vol] 8.4 10*3/uL 4.4-11.0 [facility] Work Phone: Blood erythrocytes count (nu mber/volume)on 11-20-2021 RBC (Bld) [#/Vol] 4.32 10*6/uL 4.2-5.4 [facility] Work Phone: Blood hemoglobin measurement (mass/volume)on 11-20-2021 Hemoglobin (Bld) [Mass/Vol] 12.6 g/dL 12.0-15.0 [facility] Work Phone: Blood lymphocytes/100 leukoc yteson 11-20-2021 Lymphocytes/100 WBC (Bld) 29.2 % 19-41 [facility] Work Phone: Blood monocytes/100 leukocyt eson 11-20-2021 Monocytes/100 WBC (Bld) 7.8 % 0-10 [facility] Work Phone: Blood platelet mean volumeon 11-20-2021 Platelet mean volume (Bld) [Entitic vol] 12.0 fL 6.2-12.0 [facility] Work Phone: Determination of erythrocyte mean corpuscular volume (MCV)on 11-20-2021 MCV (RBC) [Entitic vol] 87.5 fL 81-99 [facility] Work Phone: Hematocrit Auto (Bld) [Volum e fraction]on 11-20-2021 Hematocrit (Bld) [Volume fraction] 37.8 % 37-47 [facility] Work Phone: Laboratory - Chemistry and C hemistry - challengeon 11-20-2021 CO2 [Moles/Vol] 27.0 mmol/L 21.0-32.0 [facility] Work Phone: Free T4 [Mass/Vol] 0.87 ng/dL 0.76-1.46 [facility] Work Phone: [phone] Urea nitrogen/Creatinine [Mass ratio] 19.7 mg/mg 10-20 [facility] Work Phone: Laboratory - Hematology and Cell countson 11-20-2021 Erythrocyte distribution width (RBC) [Entitic vol] 40.5 fL 35.1-43.9 [facility] Work Phone: [phone] Erythrocyte distribution width (RBC) [Ratio] 12.7 % 11.6-14.6 [facility] Work Phone: [phone] Immature granulocytes/100 WBC (Bld) 0.400 % 0.0-0.9 [facility] Work Phone: Comment on above: IG% - Immature Granu locytes (promyelocytes, myelocytes and metamyelocytes) > 1% indicates that a LEFT SHIFT is Present. MCH (RBC) [Entitic mass] 29.2 pg 27.0-32.0 [facility] Work Phone: Nucleated RBC/100 WBC (Bld) [Ratio] 0 % 0-5 [facility] Work Phone: MCHC Auto (RBC) [Mass/Vol]on 11-20-2021 MCHC (RBC) [Mass/Vol] 33.3 g/dL 32-36 [facility] Work Phone: No Panel Informationon 11-20 D-Dimer Quantitative (PE/DVT) 0.46 FEU/ug/m 0.27-0.49 [facility] Work Phone: Comment on above: NORMAL D-Dimer level (<0.50) indicates no DVT or PE. Estimated GFR (MDRD) Amer 80 mL/min >60 [facility] Work Phone: Comment on above: GFR Calc Estimated GFR (MDRD) Non-Af Amer 66 mL/min >60 [facility] Work Phone: Comment on above: Non- GFR Calc Platelets bldon 11-20-2021 Platelets (Bld) [#/Vol] 177 10*3/uL 150-450 [facility] Work Phone: Serum or plasma calcium ladonna urement (mass/volume)on 11-20-2021 Calcium [Mass/Vol] 8.8 mg/dL 8.5-10.1 [facility] Work Phone: [phone] Serum or plasma creatinine m easurement (mass/volume)on 11-20-2021 Creatinine [Mass/Vol] 0.91 mg/dL 0.55-1.02 [facility] Work Phone: Comment on above: The validity of the calculated GFR & GFRAA in patients over 70 years has not been determined. Clinical correlation is essential. Serum or plasma urea nitroge n measurement (mass/volume)on 11-20-2021 Urea nitrogen [Mass/Vol] 18 mg/dL 7-18 [facility] Work Phone: Thin prep Papanicolaou smear with manual screeningon 11-20-2021 Thin prep Papanicolaou smear with manual screening 5-15 [facility] Work Phone: Vital Signs Date Time Vital Sign Value Performing Clinician Yazan stokes 04-24-2025 08:35-0400 Body height 157.48 cm Marybeth Rae DO Work Phone: [facility] 04-24-2025 08:35-0400 Body mass index (BMI) [Ratio] 29.8 kg/m2 Marybeth Rae DO Work Phone: [facility] 04-24-2025 08:35-0400 Body weight 73.93 kg Marybeth Rae DO Work Phone: [facility] 04-24-2025 08:35-0400 Diastolic blood pressure 76 mm[Hg] Marybeth Rae DO Work Phone: [facility] 04-24-2025 08:35-0400 Heart rate 76 /min Marybeth Rae DO Work Phone: [phone] [address] 04-24-2025 08:35-0400 SaO2% (BldA) [Mass fraction] 96 % Marybeth Rae DO Work Phone: [facility] 04-24-2025 08:35-0400 Systolic blood pressure 151 mm[Hg] Marybeth Rae DO Work Phone: [facility] 04-11-2025 07:59-0400 Body mass index (BMI) [Ratio] 29.4 kg/m2 Dr. Rolan Domingo MD Work Phone: [facility] 04-11-2025 07:59-0400 Body temperature 97.4 [degF] Dr. Rolan Domingo MD Work Phone: [facility] 04-11-2025 07:59-0400 Body weight 73.[address] Rolan Domingo MD Work Phone: [facility] 04-11-2025 07:59-0400 Diastolic blood pressure 78 mm[Hg] Dr. Rolan Domingo MD Work Phone: [facility] 04-11-2025 07:59-0400 Heart rate 75 /min Dr. Rolan Domingo MD Work Phone: [facility] 04-11-2025 07:59-0400 Respiratory rate 18 /min Dr. Rolan Domingo MD Work Phone: [facility] 04-11-2025 07:59-0400 SaO2% (BldA) [Mass fraction] 96 % Dr. Rolan Domingo MD Work Phone: [facility] 04-11-2025 07:59-0400 Systolic blood pressure 144 mm[Hg] Dr. Rolan Domingo MD Work Phone: [facility] 12-21-2024 08:03-0400 Body height 157.[address] Rolan Domingo MD Work Phone: [facility] 12-21-2024 08:03-0400 Body mass index (BMI) [Ratio] 29.2 kg/m2 Dr. Rolan Domingo MD Work Phone: [facility] 12-21-2024 08:03-0400 Body weight 72.[address] Rolan Domingo MD Work Phone: [facility] 12-21-2024 08:03-0400 Diastolic blood pressure 76 mm[Hg] Dr. Rolan Domingo MD Work Phone: [facility] 12-21-2024 08:03-0400 Heart rate 74 /min Dr. Rolan Domingo MD Work Phone: [facility] 12-21-2024 08:03-0400 SaO2% (BldA) [Mass fraction] 93 % Dr. Rolan Domingo MD Work Phone: [facility] 12-21-2024 08:03-0400 Systolic blood pressure 137 mm[Hg] Dr. Rolan Domingo MD Work Phone: [facility] 07-28-2023 15:30-0500 Body height 157.[address] Rolan Domingo Work Phone: [facility] 07-28-2023 15:30-0500 Body mass index (BMI) [Ratio] 30.9 kg/m2 Dr. Rolan Domingo Work Phone: [facility] 07-28-2023 15:30-0500 Body weight 76.[address] Rolan Domingo Work Phone: [facility] 07-28-2023 15:30-0500 Diastolic blood pressure 89 mm[Hg] Dr. Rolan Domingo Work Phone: [facility] 07-28-2023 15:30-0500 Heart rate 83 /min Dr. Rolan Domingo Work Phone: [facility] 07-28-2023 15:30-0500 Respiratory rate 18 /min Dr. Rolan Domingo Work Phone: [facility] 07-28-2023 15:30-0500 SaO2% (BldA) [Mass fraction] 94 % Dr. Rolan Domingo Work Phone: [facility] 07-28-2023 15:30-0500 Systolic blood pressure 141 mm[Hg] Dr. Rolan Domingo Work Phone: [facility] 03-03-2023 08:19-0400 Body height 157.[address] Rolan Domingo Work Phone: [facility] 03-03-2023 08:19-0400 Body mass index (BMI) [Ratio] 31.6 kg/m2 Dr. Rolan Domingo Work Phone: [facility] 03-03-2023 08:19-0400 Body temperature 97.6 [degF] Dr. Rolan Domingo Work Phone: [facility] 03-03-2023 08:19-0400 Body weight 78.[address] Rolan Domingo Work Phone: [facility] 03-03-2023 08:19-0400 Diastolic blood pressure 79 mm[Hg] Dr. Rolan Domingo Work Phone: [facility] 03-03-2023 08:19-0400 Heart rate 72 /min Dr. Rolan Domingo Work Phone: [facility] 03-03-2023 08:19-0400 Respiratory rate 18 /min Dr. Rolan Domingo Work Phone: [facility] 03-03-2023 08:19-0400 SaO2% (BldA) [Mass fraction] 97 % Dr. Rolan Domingo Work Phone: [facility] 03-03-2023 08:19-0400 Systolic blood pressure 147 mm[Hg] Dr. Rolan Domingo Work Phone: [facility] 01-27-2023 15:27-0400 Body mass index (BMI) [Ratio] 31.4 kg/m2 Dr. Rolan Domingo Work Phone: [facility] 01-27-2023 15:27-0400 Body weight 78.[address] Rolan Domingo Work Phone: [facility] 01-27-2023 15:27-0400 Diastolic blood pressure 79 mm[Hg] Dr. Rolan Domingo Work Phone: [facility] 01-27-2023 15:27-0400 Heart rate 79 /min Dr. Rolan Domingo Work Phone: [facility] 01-27-2023 15:27-0400 Respiratory rate 18 /min Dr. Rolan Domingo Work Phone: [facility] 01-27-2023 15:27-0400 SaO2% (BldA) [Mass fraction] 6 % Dr. Rolan Domingo Work Phone: [facility] 01-27-2023 15:27-0400 Systolic blood pressure 132 mm[Hg] Dr. Rolan Domingo Work Phone: [facility] 01-17-2023 08:41-0400 Body temperature 98.4 [degF] Geneva Athy PA-C Work Phone: [facility] 01-17-2023 08:41-0400 Body weight 80.29 kg Geneva Athy PA-C Work Phone: [facility] 01-17-2023 08:41-0400 Diastolic blood pressure 78 mm[Hg] Geneva Athy PA-C Work Phone: [facility] 01-17-2023 08:41-0400 Heart rate 83 /min Geneva Athy PA-C Work Phone: [facility] 01-17-2023 08:41-0400 Respiratory rate 20 /min Geneva Athy PA-C Work Phone: [facility] 01-17-2023 08:41-0400 SaO2% (BldA) [Mass fraction] 97 % Geneva Athy PA-C Work Phone: [facility] 01-17-2023 08:41-0400 Systolic blood pressure 126 mm[Hg] Geneva Athy PA-C Work Phone: [facility] 07-21-2022 15:35-0500 Body height 157.[address] Rolan Domingo Work Phone: [facility] Work Phone: 07-21-2022 15:35-0500 Body mass index (BMI) [Ratio] 32.3 kg/m2 Dr. Rolan Domingo Work Phone: [facility] Work Phone: 07-21-2022 15:35-0500 Body weight 80.[address] Rolan Domingo Work Phone: [facility] Work Phone: 07-21-2022 15:35-0500 Diastolic blood pressure 82 mm[Hg] Dr. Rolan Domingo Work Phone: [facility] Work Phone: 07-21-2022 15:35-0500 Heart rate 85 /min Dr. Rolan Domingo Work Phone: [facility] Work Phone: 07-21-2022 15:35-0500 Respiratory rate 18 /min Dr. Rolan Domingo Work Phone: [facility] Work Phone: 07-21-2022 15:35-0500 SaO2% (BldA) [Mass fraction] 93 % Dr. Rolan Domingo Work Phone: [facility] Work Phone: 07-21-2022 15:35-0500 Systolic blood pressure 135 mm[Hg] Dr. Rolan Domingo Work Phone: [facility] Work Phone: 01-27-2022 15:32-0400 Body height 157.[address] Rolan Domingo Work Phone: [facility] Work Phone: 01-27-2022 15:32-0400 Body mass index (BMI) [Ratio] 32.3 kg/m2 Dr. Rolan Domingo Work Phone: [facility] Work Phone: 01-27-2022 15:32-0400 Body weight 80.[address] Rolan Domingo Work Phone: [facility] Work Phone: 01-27-2022 15:32-0400 Diastolic blood pressure 77 mm[Hg] Dr. Rolan Domingo Work Phone: [facility] Work Phone: 01-27-2022 15:32-0400 Heart rate 69 /min Dr. Rolan Domingo Work Phone: [facility] Work Phone: 01-27-2022 15:32-0400 Respiratory rate 18 /min Dr. Rolan Domingo Work Phone: [facility] Work Phone: 01-27-2022 15:32-0400 SaO2% (BldA) [Mass fraction] 95 % Dr. Rolan Domingo Work Phone: [facility] Work Phone: 01-27-2022 15:32-0400 Systolic blood pressure 135 mm[Hg] Dr. Rolan Domingo Work Phone: [facility] Work Phone: 01-27-2022 15:32-0400 Body height 157.[address] Rolan Domingo Work Phone: [facility] Work Phone: 01-27-2022 15:32-0400 Body mass index (BMI) [Ratio] 32.3 kg/m2 Dr. Rolan Domingo Work Phone: [facility] Work Phone: 01-27-2022 15:32-0400 Body weight 80.[address] Rolan Domingo Work Phone: [facility] Work Phone: 01-27-2022 15:32-0400 Diastolic blood pressure 77 mm[Hg] Dr. Rolan Domingo Work Phone: [facility] Work Phone: 01-27-2022 15:32-0400 Heart rate 69 /min Dr. Rolan Domingo Work Phone: [facility] Work Phone: 01-27-2022 15:32-0400 Respiratory rate 18 /min Dr. Rolan Domingo Work Phone: [facility] Work Phone: 01-27-2022 15:32-0400 SaO2% (BldA) [Mass fraction] 95 % Dr. Rolan Domingo Work Phone: [facility] Work Phone: 01-27-2022 15:32-0400 Systolic blood pressure 135 mm[Hg] Dr. Rolan Domingo Work Phone: [facility] Work Phone: 12-12-2021 13:11-0400 Body mass index (BMI) [Ratio] 31.8 kg/m2 Dr. Rolan Domingo Work Phone: [facility] Work Phone: 12-12-2021 13:11-0400 Body weight 79.[address] Rolan Domingo Work Phone: [facility] Work Phone: 12-12-2021 13:11-0400 Diastolic blood pressure 68 mm[Hg] Dr. Rolan Domingo Work Phone: [facility] Work Phone: 12-12-2021 13:11-0400 Heart rate 60 /min Dr. Rolan Domingo Work Phone: [facility] Work Phone: 12-12-2021 13:11-0400 Respiratory rate 16 /min Dr. Rolan Domingo Work Phone: [facility] Work Phone: 12-12-2021 13:11-0400 Systolic blood pressure 140 mm[Hg] Dr. Rolan Domingo Work Phone: [facility] Work Phone: 12-12-2021 13:11-0400 Body height 157.[address] Rolan Domingo Work Phone: [facility] Work Phone: 12-12-2021 13:11-0400 Body mass index (BMI) [Ratio] 31.8 kg/m2 Dr. Rolan Domingo Work Phone: [facility] Work Phone: 12-12-2021 13:11-0400 Body weight 79.[address] Rolan Domingo Work Phone: [facility] Work Phone: 12-12-2021 13:11-0400 Diastolic blood pressure 68 mm[Hg] Dr. Rolan Domingo Work Phone: [facility] Work Phone: 12-12-2021 13:11-0400 Heart rate 60 /min Dr. Rolan Domingo Work Phone: [facility] Work Phone: 12-12-2021 13:11-0400 Respiratory rate 16 /min Dr. Rolan Domingo Work Phone: [facility] Work Phone: 12-12-2021 13:11-0400 Systolic blood pressure 140 mm[Hg] Dr. Rolan Domingo Work Phone: [facility] Work Phone: 11-20-2021 13:19-0400 Body mass index (BMI) [Ratio] 31.8 kg/m2 Dr. Rolan Domingo Work Phone: [facility] Work Phone: 11-20-2021 13:19-0400 Body temperature 97.5 [degF] Dr. Rolan Domingo Work Phone: [facility] Work Phone: 11-20-2021 13:19-0400 Body weight 78.[address] Rolan Domingo Work Phone: [facility] Work Phone: 11-20-2021 13:19-0400 Diastolic blood pressure 68 mm[Hg] Dr. Rolan Domingo Work Phone: [facility] Work Phone: 11-20-2021 13:19-0400 Heart rate 77 /min Dr. Rolan Domingo Work Phone: [facility] Work Phone: 11-20-2021 13:19-0400 SaO2% (BldA) [Mass fraction] 97 % Dr. Rolan Domingo Work Phone: [facility] Work Phone: 11-20-2021 13:19-0400 Systolic blood pressure 144 mm[Hg] Dr. Rolan Domingo Work Phone: [facility] Work Phone: 11-20-2021 13:19-0400 Body height 157.[address] Rolan Domingo Work Phone: [facility] Work Phone: 11-20-2021 13:19-0400 Body mass index (BMI) [Ratio] 31.8 kg/m2 Dr. Rolan Domingo Work Phone: [facility] Work Phone: 11-20-2021 13:19-0400 Body temperature 97.5 [degF] Dr. Rolan Domingo Work Phone: [facility] Work Phone: 11-20-2021 13:19-0400 Body weight 78.[address] Rolan Domingo Work Phone: [facility] Work Phone: 11-20-2021 13:19-0400 Diastolic blood pressure 68 mm[Hg] Dr. Rolan Domingo Work Phone: [facility] Work Phone: 11-20-2021 13:19-0400 Heart rate 77 /min Dr. Rolan Domingo Work Phone: [facility] Work Phone: 11-20-2021 13:19-0400 SaO2% (BldA) [Mass fraction] 97 % Dr. Rolan Domingo Work Phone: [facility] Work Phone: 11-20-2021 13:19-0400 Systolic blood pressure 144 mm[Hg] Dr. Rolan Domingo Work Phone: [facility] Work Phone: Encounters Encounter Date Encounter Type Care Provider Facility Start: 04-24-2025 End: 04-24-2025 Patient encounter procedure Layla Esposito CEMENT KILN OPERATOR-C -[facility] Work Phone: Start: 04-24-2025 End: 04-24-2025 ambulatory Marybeth Mcbride DO Work Phone: -[facility] Start: 04-11-2025 End: 04-11-2025 Patient encounter procedure Miri Sheriff CEMENT KILN OPERATOR-C -[facility] Work Phone: Start: 04-11-2025 End: 04-11-[address] Rolan Domingo MD Work Phone: -[facility] Start: 04-03-2025 End: 04-03-[address] Rolan Domingo MD Work Phone: -formerly [facility] Start: 04-03-2025 End: 04-03-2025 Patient encounter procedure Miri Sheriff CEMENT KILN OPERATOR-C -Cat [facility] Work Phone: Start: 04-03-2025 End: 04-03-2025 ambulatory Marybeth Mcbride [facility] Facility:[facility] Start: 03-22-2025 End: 03-22-[address] Rolan Domingo MD Work Phone: [facility] Start: 03-22-2025 End: 03-22-2025 Patient encounter procedure Marybeth Rae DO -[facility] Work Phone: Start: 03-22-2025 End: 03-22-2025 [facility] Start: 12-21-2024 End: 12-21-2024 Patient encounter procedure Layla Esposito CEMENT KILN OPERATOR-C -[facility] Work Phone: Start: 12-21-2024 End: 12-21-2024 ambulatory Layla Esposito Facility:[facility] Start: 09-03-2024 End: 09-03-2024 ambulatory Keena MILES Facility:[facility] Start: 07-27-2024 End: 07-27-20[facility] Start: 07-27-2024 End: 07-27-2024 ambulatory Rolan Domingo Facility:[facility] Start: 09-11-2023 End: 09-11-2023 ambulatory ROLAN DOMINGO Facility:[facility] Start: 09-11-2023 End: 09-11-2023 Subsequent hospital visit by physician X[facility] Work Phone: Radiology Comment on above: Acute cough [R05.1] Start: 07-28-2023 End: 07-28-[address] Rolan Domingo Work Phone: [facility] Work Phone: Start: 07-25-2023 End: 07-25-[address] Rolan Domingo Work Phone: [facility] Work Phone: Start: 07-25-2023 End: 07-25-[address] [facility] Start: 04-01-2023 End: 04-01-[address] Rolan Domingo Work Phone: [facility] Work Phone: Start: 04-01-2023 End: 04-01-[address] Rolan Domingo Work Phone: [facility] Work Phone: Start: 03-28-2023 End: 03-28-[address] Rolan Domingo Work Phone: [facility] Work Phone: Start: 03-28-2023 End: 03-28-[address] [facility] Start: 03-03-2023 End: 03-03-[address] Rolan Domingo Work Phone: [facility] Work Phone: Start: 01-27-2023 End: 01-27-[address] Rolan Domingo Work Phone: [facility] Work Phone: Start: 01-17-2023 End: 01-17-2023 ambulatory ROLAN DOMINGO Facility:[facility] Start: 01-17-2023 End: 01-17-2023 Patient encounter procedure Geneva Melendez PA-C Work Phone: [facility] Comment on above: Bronchitis (Primary Dx) Start: 07-26-2022 End: 07-26-[address] Rolan Domingo Work Phone: [facility] Work Phone: Start: 07-26-2022 End: 07-26-[address] Rolan Domingo Work Phone: [facility] Start: 07-21-2022 End: 07-21-[address] Rolan Domingo Work Phone: [facility] Start: 02-10-2022 End: 02-10-[address] Rolan Domingo Work Phone: [facility] Start: 01-27-2022 End: 01-27-[address] Rolan Domingo Work Phone: [facility] Start: 01-25-2022 End: 01-25-[address] [facility] Start: 01-03-2022 Non-patient / Non-visit Dr. Rolan Domingo Work Phone: [facility] Start: 01-03-2022 End: 01-03-[address] Rolan Domingo Work Phone: [facility] Start: 12-12-2021 End: 12-12-[address] Rolan Domingo Work Phone: [facility] Start: 11-20-2021 End: 11-20-[address] Rolan Herzog Phone: [facility] [place] Start: 11-20-2021 End: 11-20-[address] Rolan Domingo Work Phone: [facility] Procedures Date Procedure Procedure Detail Performing Clinician Start: 04-03-[address] Isreal Domingo MD Work Phone: Start: 03-22-2025 Plain x-ray of hand Dr. Rolan Domingo MD Work Phone: Start: 03-22-2025 Dual energy X-ray absorptiometry Dr. Rolan Domingo MD Work Phone: Start: 03-22-2025 Screening mammography D ana luisa Domingo MD Work Phone: Start: 09-11-2023 Radiologic exam ches t 2 views Geneva Melendez PA-C Work Phone: Start: 04-01-[address] Isreal Domingo Work Phone: Start: 02-10-[address] Isreal Domingo Work Phone: Start: 04-13-2010 Lipid 1996 panel - S jorge or Plasma [facility] Work Phone: Start: 03-25-2010 Mammography Geneva Melendez PA-C Work Phone: Start: 03-19-2010 Colonoscopy Geneva Melendez PA-C Work Phone: Plan of Treatment Date Care Activity Detail Author Start: 04-17-2024 Covid-19 Vaccine ( season) Covid-19 Vaccine ( season) [facility] Start: 04-17-2024 Influenza vaccination Influenza Vaccine (#1) [facility] Start: 04-17-2023 Influenza vaccination INFLUENZA (Season Ended) [facility] Start: 08-17-2022 DEPRESSION ASSESSMENT DEPRESSION ASSESSMENT [facility] Start: 11-20-2021 Patient referral [facility] Work Phone: Start: 2019 RSV Vaccine (1 - 1-dose 60+ series) RSV Vaccine (1 - 1-dose 60+ series) [facility] Start: 04-13-2015 Lipid panel Lipid Screening [facility] Start: 04-13-2015 LIPID SCREEN LIPID SCREEN [facility] Start: 04-13-2013 DIABETES SCREEN DIABETES SCREEN [facility] Start: 04-13-2013 Diabetes Screening Diabetes Screening [facility] Start: 03-25-2011 Mammography MAMMOGRAM [facility] Start: 03-25-2011 Screening for malignant neoplasm of breast Mammogram Screening [facility] Start: 03-19-2011 Colonoscopy COLONOSCOPY [facility] Start: 03-19-2011 COLORECTAL CANCER SCREENING COLORECTAL CANCER SCREENING [facility] Start: 03-19-2011 Screening for malignant neoplasm of colon [facility] Start: 12-15-2010 Urine microalbumin profile [facility] Start: 12-18-2009 Influenza vaccination LUNG CANCER SCREENING [facility] Start: 12-18-2009 Screening for malignant neoplasm of lung Lung Cancer Screening [facility] Start: 12-18-2009 SHINGRIX VACCINE (1 of 2) SHINGRIX VACCINE (1 of 2) [facility] Start: 12-18-2004 COLOGUARD (FIT-DNA) COLOGUARD (FIT-DNA) [facility] Start: 12-18-[address] COLONOGRAPHY [facility] Start: 12-18-2004 FECAL OCCULT BLOOD FECAL OCCULT BLOOD [facility] Start: 12-18-2004 Screening for malignant neoplasm of colon [facility] Start: 12-18-2004 SIGMOIDOSCOPY SIGMOIDOSCOPY [facility] Start: 12-18-1977 Anxiety Screening Anxiety Screening [facility] Start: 12-18-1977 Depression Screening Depression Screening [facility] Start: 12-18-1977 HEPATITIS C SCREENING HEPATITIS C SCREENING [facility] Start: 12-18-1977 Hepatitis C screening Hepatitis C Screening [facility] Start: 12-18-1977 HIV SCREENING HIV SCREENING [facility] Start: 12-18-1977 HIV screening HIV Screening [facility] Start: 12-18-1965 PNEUMOCOCCAL (1 - PCV) PNEUMOCOCCAL (1 - PCV) [facility] Start: 12-18-1965 Pneumococcal vaccination Pneumococcal Vaccine (1 of 2 - PCV) [facility] Start: 06-20-1960 COVID-19 VACCINE (#1) COVID-19 VACCINE (#1) [facility] Blood chemistry [facility] CBC W Auto Different ial panel - Blood [facility] Comprehensive metabo lic 2000 panel - Serum or Plasma [facility] CT Chest [facility] Hemoglobin A1c/Hemoglobin.total in Blood [facility] Lipid 1996 panel - S jorge or Plasma [facility] referral [facility] Work Phone: Thyroid stimulating hormone measurement [facility] Urine microalbumin/creatinine ratio measurement [facility] Vitamin D, 25-hydrox y measurement [facility] Immunizations Immunization Date Immunization Notes Care Provider Fa cili 06-06-2009 influenza virus vaccine, unspecified formulation Geneva Melendez PA-C Work Phone: [facility] Work Phone: 12-15-2000 diphtheria and tetan us toxoids, adsorbed for pediatric use Geneva Melendez PA-C Work Phone: [facility] Work Phone: Payers Date Payer Category Payer Self-pay [id number] 2024 Medicare [id number] 2005 [employer] ( and others) [id number] 2005 Unknown [facility] [id number] 2005-Present [phone] [address] [place] [address] Indemnity [id number] [employer] ( and others) [id number] Unknown [id number] Unknown [id number] Unknown [id number] Unknown [id number] Unknown [id number] Unknown [id number] Unknown [id number] Unknown [id number] Social History Date Type Detail Facility Start: 11-20-2021 End: 07-28-2023 Tobacco smoking status [facility] Unknown if ever smoked [facility] Start: 1960 Sex Assigned At Female [facility] Start: 05-16-2013 End: 12-21-2024 Tobacco smoking status AZIS Smokes tobacco daily [facility] Work Phone: History of tobacco use Cigarette Smoker C [facility] Work Phone: Start: 05-16-2013 End: 07-22-2020 Cigarettes smoked current (pack per day) - Reported 1 [facility] Start: 05-16-2013 Tobacco use and exposure Smokeless tobacco non-user [facility] Work Phone: Start: 01-17-2023 End: 09-11-2023 Alcohol intake Current drinker of alcohol (finding) [facility] Start: 06-08-2013 Alcohol Comment 1 drink per month [facility] Start: 1960 Sex Assigned At Not on file C [facility] Start: 07-22-2020 End: 09-11-2023 Tobacco use panel [facility] National Score (1-10 0), lower number is lower risk Not on file [facility] Medical Equipment Procedure Code Equipment Code Equipment Origin al Text Equipment Identifier Dates Blood Sugar Diagnostic (Accu-Chek Guide Test Strips) strip Start: 12-21-2024 Lancets ([place] Chek Lancets) [address] [facility] Start: 12-21-2024 Blood Sugar Diagnostic (Accu-Chek Guide Test Strips) strip Start: 12-21-2024 Lancets ([place] Chek Lancets) [address] [facility] Start: 12-21-2024 Blood Sugar Diagnostic (Accu-Chek Guide Test Strips) strip Start: 12-21-2024 Lancets ([place] Chek Lancets) 30 gauge misc Start: 12-21-2024 Blood Sugar Diagnostic (Accu-Chek Guide Test Strips) strip Start: 12-21-2024 Lancets ([place] Chek Lancets) 30 gauge misc Start: 12-21-2024 Clinical Notes 01-17-2023 to 04-11-2025 Note Date & Type Note Facility 04-11-2025 Evaluation note Diagnosis Onset Date Resolution MIRANDA (obstructive sleep apnea) chronic April 11 8:57am Smoking greater than 40 pack years chronic April 11 8:57am [facility] Work Phone: 1(349) 454-872308-18-2025 Radiology Diagnostic study note [facility] [address] [place] [address] Lung Screening MR#: [id number] Acct: [id number] Name: RENZO LAW Rep #: [id number] : 1960 F 64 From: Garcia Serrano MD PCP: Marybeth Mcbride DO Status: REG CLI Study:Low Dose CT Lung Screening Date of Exam : 04/03/25 Exam# [id number] Ordering Dr: Laine Sheriff CEMENT KILN OPERATOR CEMENT KILN OPERATOR-C PROCEDURE: LOW DOSE CT LUNG SCREENING 04/03/2025 REASON FOR EXAM: SMOKER TECHNIQUE: LOW DOSE CT LUNG SCREENING Coronal and Sagittal reconstruction series were provided. One or more dose reduction techniques were used (e.g., Automated exposure control, adjustment of the mA and/or kV according to patient size, use of iterative reconstruction technique). REFERENCE LINK: [facility] Lung-RADS RADIATION DOSE SUMMARY: CTDlvol: 3.02 mGy DLP: 93.27 mGycm COMPARISON: Prior study dated April 02, 2024. FINDINGS: PULMONARY NODULES: (Only nodules >3mm are reported) Nodules described below are on series 1 unless otherwise specified. Pulmonary Nodules: No suspicious pulmonary nodule is seen. Stable calcified granuloma in the rightupper lobe. Hardware:None Lymph Nodes:No enlarged lymph nodes are seen. Heart and Vasculature:The heart is nonenlarged.Mild atherosclerotic calcification of the aortic arch. Coronary Artery Calcifications: Present Lungs and Airways: Mild emphysematous changes are present. Pleura:Unremarkable Upper Abdomen:Unremarkable Bones:Degenerative changes of the thoracic spine. CT/Low Dose CT Lung Screening IMPRESSION: No suspicious nodules are seen. Coronary artery calcification (CAC) is is present Lung-RADS Category: 2 BENIGN (BASED ON IMAGING FEATURES OR INDOLENT BEHAVIOR). RECOMMEND 12-MONTH SCREENING LDCT. Other Significant Findings: Reading Location: [id number] CC: JORGE LUIS Sheriff; Marybeth Mcbride DO ~ Room Service Associate: Signed [facility]08-07-2025 Radiology Diagnostic study note [facility] [address] [place] [address] Hand Min 3 Views MR#: [id number] Acct: [id number] Name: RENZO LAW Rep #: [id number] : 1960 F 64 From: Shavon Stephenson MD PCP: Marybeth Mcbride DO Status: REG CLI Study:Hand Min 3 Views Date of Exam: 02/08 Exam# [id number] Ordering Dr: Pérez Mcbride [facility] PROCEDURE: HAND MIN 3 VIEWS 03/22/2025 REASON FOR EXAM: PAIN TECHNIQUE: HAND MIN 3 VIEWS COMPARISON: None. FINDINGS: Moderate to severe degenerative joint disease of the 1st carpometacarpal joint. Moderate degenerative joint disease of the 1st metacarpophalangeal joint. Mild osteopenia of the visualized bones. Degenerative joint disease. No fracture or dislocation is seen. No lytic or blastic bone lesion is noted. RAD/Hand Min 3 Views IMPRESSION: Degenerative joint disease, more prominent in the 1st carpometacarpal joint. Reading [facility] CC: Marybeth Mcbride DO ~ Room Service Associate: Signed [facility]05-07-2025 Evaluation note* Diagnosis Onset Date Resolution Status Admit Date CKD (chronic kidney disease) stage 3, GFR 30-59 ml/min chronic December 21 7:59am Diabetes mellitus chronic December 7:59am Hyperlipidemia chronic December 21, 2 025 7:59am Hypertension chronic December 21 7:59am Hypertriglyceridemia chronic December 21, 2024 7:59am Overweight chronic December 21, 2024 7:59am [facility] Work Phone: [phone] [id number] NoteHNO ID: [id number] Author: GENEVA MELENDEZ PA-C Service: ? Author Type: Physician Air Brush Operator Type: Progress Notes Filed: 09/11/2023 08:54 Note Text: This note was created using VGBioter. Subjective Renzo Law is a 62 year [...] Patient agreeable. - XR CHEST 2V FRONTAL/LAT GINGER [facility]01-26-2024 NoteHNO ID: [id number] Author: LETY BOWEN RT(Michael) Service: Radiology Author Type: Technologist [...] PATIENT PRESENTS WITH AN IMPLANTABLE OR ATTACHED BRICK AND BLOCK MASON: No RADIOLOGY DEPARTMENT: General X-ray: Exam(s) Completed: Chest X-Ray PERIPHERAL IV DATA: Not applicable SIGNED BY: JACKI Whitten) September 11, 2023 8:22 [facility]01-26-2024 History of Present illness Narrative* Lety Bowen RT(R) - 09/11/2023 8:30 AM EST Radiology Service Progress Note PATIENT NAME: Renzo Law DATE OF SERVICE: September 11, 2023 TIME: 8:22 AM PATIENT IDENTITY VERIFICATION COMPLETED USING TWO (2) IDENTIFIERS: Name and Date of confirmedby patient verbally. FALL SCREENING: Has the patient had 2 falls in the last year or 1 fall with injury or currently using an Ambulatory Assistive Device (Walker, Cane, Wheelchair, Crutches, etc.)? No PATIENT GENDER DATA: Female. status: : No status: NO. PATIENT RELEVANT IMPLANT DATA REVIEWED: Yes PATIENT PRESENTS WITH AN IMPLANTABLE OR ATTACHED BRICK AND BLOCK MASON: No RADIOLOGY DEPARTMENT: General X-ray: Exam(s) Completed: Chest X-Ray PERIPHERAL IV DATA: Not applicable SIGNED BY: RT Fish(R) September 11, 2023 8:22 AM documented [facility]23 NoteHNO ID: [id number] Author: Geneva Melendez PA-C Service: ? Author Type: Physician Air Brush Operator Type: Progress Notes Filed: 01/17/2023 9:10 AM Note Text: This note was created using P[employer]. Subjective Renzo Law is a 62 year [...] Wheezing present. Comments: Mild (more content not included)...[facility] 01-17-2023 History of Present illness Narrative* Geneva Melendez PA-C - 01/17/2023 9:08 AM EDT This note was created using NoteWriter. Subjective Renzo Law is a 62 year [...] capsules by mouth three times daily as needed.(Patient not taking: No sig reported) 30 capsule 0 albuterol HFA (VENTOLIN HFA) 90 mcg/actuation inhaler Inhale 2 Puffs as instructed every 4 hours asneeded for Wheezing/Shortness of Breath. (Patient not taking: [...] agreeable. Geneva Melendez PA-C [facility] Diagnosis Onset Date Resolution Status Hypertension chronic [facility] Work Phone: Evaluation note* Diagnosis Onset Date Resolution Status Abnormal EKG acute Essential hypertension acute Leg edema acute [facility] Work Phone: Evaluation note* Diagnosis Onset Date Resolution Status Abnormal EKG acute Essential hypertension acute Leg edema acute Essential hypertension acute Leg edema acute [facility] Work Phone: Evaluation note* Diagnosis Onset Date Resolution Status Edema noneactive Abnormal EKG acute Essential hypertension acute Leg edema acute Essential hypertension acute Leg edema acute [facility] Work Phone: Evaluation note* Diagnosis Onset Date Resolution Status Essential hypertension acute Leg edema acute [facility] Work Phone: Evaluation note* Diagnosis Bronchitis- Primary Bronchitis, not specified as acute or chronic documented in this encounter [facility]* Diagnosis Onset Date Resolution Status Essential hypertension acute Hyperlipidemia acute Morbid (severe) obesity due to excess calories chronic MIRANDA (obstructive sleep apnea) chronic Smoking greater than 40 pack years [facility] Work Phone: Evaluation note* Diagnosis Acute cough documented in this encounter [facility] note* Diagnosis Onset Date Resolution Status Borderline type 2 diabetes mellitus acute Essential hypertension acute Hyperlipidemia acute [facility] Work Phone[facility]: [facility] Work Phone: Reason for referral (narrative)No reason for referral information availableOur [facility] Work Phone: Chief Complaint and Reason for [...] 2 di abetes mellitus Essential hypertension Hyperlipidemia Chief Complaint Admit Date Diabetes December 21, 2024 7:59am SCREENING/OSTEO March 22, 2025 6:5 9am Reason for Visit Admit Date CKD (chronic kidney disease) stage 3, GF R 30-59 ml/min December 21, 2024 7:59am Diabetes mellitus December 21, 2024 7:59am Hyperlipidemia December 21, 2024 7:59am Hypertension December 21, 2024 7:59am Hypertriglyceridemia December 21, 2024 7:59a m Overweight December 21, 2024 7:59am Chief Complaint Admit Date Diabetes December 21, 2024 7:59am SCREENING/OSTEO March 22, 2025 6:5 9am NICOTINE DEPENDENCE April 03, 2025 8: 10am Chief Complaint Admit Date Diabetes December 21, 2024 7:59am SCREENING/OSTEO March 22, 2025 6:5 9am NICOTINE DEPENDENCE April 03, 2025 8: 10am 1 Y FU April 11, 2025 8: 57am Chief Complaint Admit Date SCREENING/OSTEO March 22, 2025 6:5 9am NICOTINE DEPENDENCE April 03, 2025 8: 10am 1 Y FU April 11, 2025 8: 57am 4 M FU, RS 03/23April 24, 2025 8:33am Reason for Visit Admit Date MIRANDA (obstructive sleep apnea) March 8:57am Smoking greater than 40 pack years Augus t 2024 8:57am Family History No Family History Records Found [...] or prosecute any alcohol or drug abuse patient.[facility] CenterIn the event this information is protected by the Federal Confidentiality of Alcohol and Drug Abuse Patient Records regulations: The Federal rules restrict any use of the information to criminally investigate or prosecute any alcohol or drug abuse patient.[facility] Reason for Visit (unrecogniz ed section and content) Reason Comments Allergies Started Thursday, got worse, itchy eyes, runny nose, coughing, sneezing Care Teams (unrecognized sec tion and content) Team Status: Active Member Role Status Dates No Primary Care Physician Family Provider Active Dr. Rolan Domingo MD Primary Care Provider Active Team Status: Inactive Member Role Status Dates Dr. Rolan Domingo MD Primary Care Provider, Refer ring Provider Active Miri Sheriff CEMENT KILN OPERATOR, CEMENT KILN OPERATOR-C Attending Provider Active Team Status: Inactive Member Role Status Dates Dr. Rolan Domingo MD Primary Care Provider, Refer ring Provider Active Loly Cervantes CEMENT KILN OPERATOR, CEMENT KILN OPERATOR-C Attending Provider Active Team Status: Active Member Role Status Dates Dr. Rolan Domingo MD Primary Care Provider Active Miri Sheriff CEMENT KILN OPERATOR, CEMENT KILN OPERATOR-C Attending Provider, Referrin g Provider Active Team Status: Inactive Member Role Status Dates Dr. Rolan Domingo MD Primary Care Provider Active Loly Cervantes CEMENT KILN OPERATOR, CEMENT KILN OPERATOR-C Attending Provider, Referring P enriqueta Active Team Status: Inactive Member Role Status Dates Dr. Rolan Domingo MD Primary Care Provider Active Miri Sheriff CEMENT KILN OPERATOR, CEMENT KILN OPERATOR-C Attending Provider, Referrin g Provider Active Grease Refining Supervisor Relationship Specialty Start Date End Date Rolan Domingo MD [address] [place] [address] PCP - General Internal Medicine 09/11/23 Team Status: Inactive Member Role Status Dates Dr. Rolan Domingo MD Primary Care Provider, Refer ring Provider Active Stan Sheikh CEMENT KILN OPERATOR, CEMENT KILN OPERATOR-C Attending Provider Active Team Status: Active Member Role/Relationship Status Dates Marybeth HICKS DO Primary Care Provider Active Team Status: Inactive Member Role/Relationship Status Dates Dr. Rolan Domingo MD Primary Care Provider Active Start: December 21, 2024 End: December 21, 2024 Dr. Rolan Domingo MD Referring Provider Active Start: December 21, 2024 End: December 21, 2024 Layla Esposito NP-C Attending Provider Active Start: December 21, 2024 End: December 21, 2024 Team Status: Inactive Member Role/Relationship Status Dates Marybeth Mcbride VSC, DO Primary Care Provider Active Start: March 22, 2025 End: March 22, 2025 Marybeth Mcbride VSC, DO Attending Provider Active Start: March 22, 2025 End: March 22, 2025 Marybeth Mcbride VSC, DO Referring Provider Active Start: March 22, 2025 End: March 22, 2025 Team Status: Inactive Member Role/Relationship Status Dates Miri Sheriff CEMENT KILN OPERATOR, CEMENT KILN OPERATOR-C Attending Provider Active Start: April 03, 2025 End: April 03, 2025 Miri Sheriff CEMENT KILN OPERATOR, CEMENT KILN OPERATOR-C Referring Provider Active Start: April 03, 2025 End: April 03, 2025 Marybeth Mcbride VSC, DO Primary Care Provider Active Start: April 03, 2025 End: April 03, 2025 Team Status: Inactive Member Role/Relationship Status Dates Dr. Rolan Domingo MD Referring Provider Active Start: April 11, 2025 End: April 11, 2025 Miri Sheriff CEMENT KILN OPERATOR, CEMENT KILN OPERATOR-C Attending Provider Active Start: April 11, 2025 End: April 11, 2025 Marybeth Mcbride VSC, DO Primary Care Provider Active Start: April 11, 2025 End: April 11, 2025 Team Status: Inactive Member Role/Relationship Status Dates Marybeth Mcbride VSC, DO Primary Care Provider Active Start: March 22, 2025 End: March 22, 2025 Marybeth Mcbride VSC, DO Attending Provider Active Start: March 22, 2025 End: March 22, 2025 Marybeth Mcbride VSC, DO Referring Provider Active Start: March 22, 2025 End: March 22, 2025 Team Status: Inactive Member Role/Relationship Status Dates Miri Sheriff CEMENT KILN OPERATOR, CEMENT KILN OPERATOR-C Attending Provider Active Start: April 03, 2025 End: April 03, 2025 Miri Sheriff CEMENT KILN OPERATOR, CEMENT KILN OPERATOR-C Referring Provider Active Start: April 03, 2025 End: April 03, 2025 Marybeth Mcbride VSC, DO Primary Care Provider Active Start: April 03, 2025 End: April 03, 2025 Team Status: Inactive Member Role/Relationship Status Dates Miri Sheriff CEMENT KILN OPERATOR, CEMENT KILN OPERATOR-C Attending Provider Active Start: April 11, 2025 End: April 11, 2025 Marybeth HICKS, DO Primary Care Provider Active Start: April 11, 2025 End: April 11, 2025 Marybeth HICKS, DO Referring Provider Active Start: April 11, 2025 End: April 11, 2025 Team Status: Inactive Member Role/Relationship Status Dates Dr. Rolan Domingo MD Referring Provider Active Start: April 24, 2025 End: April 24, 2025 JORGE LUIS Franklin Attending Provider Active Start: April 24, 2025 End: April 24, 2025 Marybeth HICKS, DO Primary Care Provider Active Start: April 24, 2025 End: April 24, 2025 INFORMATION SOURCE (unrecogn ized section and content) DATE CREATED AUTHOR 09/12/2023 [facility] DATE CREATED AUTHOR 'S DANGELO MANCERA 04/25/2025 [facility] FOR RECORDS PERTAINING TO PATIENTS WHO [...] BE BASED ON THE PRIMARY CLINICAL RECORDS. [employer] provides no warranty or guarantee of the accuracy or completeness of information in this document.
[2025-04-29 08:53] LABS: Creatinine, Urine (random) 56.20 mg/dL (28.00-217.00); Microalbumin,Random Urine < 12.0 mg/L (<20 mg/L)
[2025-04-29 08:57] LABS: AST(SGOT) 20 U/L (<=31); Alanine Aminotransfer ALT/SGPT 19 U/L (<=34); Albumin, Serum 4.2 g/dL (3.4-4.8); Alkaline Phosphatase 75 U/L (35-104); Anion Gap 13 (5-15); BUN 23 mg/dL (4-19); BUN/Creat Ratio 23.1 RATIO (10-20); Calcium,Total 9.1 mg/dL (7.6-11.0); Carbon Dioxide 21.5 mmol/L (21.0-32.0); Chloride 104 mmol/L (98-108); Cholesterol 151 mg/dL (<=200); Globulin 2.8 g/dL (2.2-4.2); Glucose 140 mg/dL (70-99); Low Density Lipoprotein Calc. 63 mg/dL; Potassium 4.0 mmol/L (3.3-5.1); Triglycerides 202 mg/dL; Very Low Density Lipoprotein 40 mg/dL (5-40); Vitamin D,25 Hydroxy 25.7 ng/mL (30-100); cholesterol:hdl ratio screen 3.17
== END | disposition home or self-care (01) ==
LOC: LAB 07:08
PROVIDERS: PCP Family Medicine; Referring Provider Nurse Practitioner Family; Visit Provider Nurse Practitioner Family
DX: E11.65 Type 2 diabetes mellitus with hyperglycemia (principal); E11.22 Type 2 diabetes mellitus with diabetic chronic kidney disease; N18.31 Chronic kidney disease, stage 3a; E78.2 Mixed hyperlipidemia
CPT/HCPCS: 36415; 80053; 80061; 82043; 82306; 82570; 84443